=== PATIENT | male | born 1930 | race Caucasian/White ===

== ENCOUNTER 2016-02-23 14:16 | Inpatient (IN) | payer MEDICARE, MEDICAID ==
[~2016-02-23] VITALS: Ht 182.9 cm; Wt 81.6 kg
[2016-02-23] MEDS ORDERED: Ketorolac 30mg Inj IV ONE (14:45)
--- NOTE | 2016-02-23 14:53 | Emergency Room Report ---
History of Present Illness General Chief Complaint: Generalized Weakness Source: Patient Present Illness HPI Patient presents for general weakness patient apparently had a near syncopal episode Patient himself is a very poor historian Reports that he was having a headache [place] generally weak Patient is also able to come that he was recently in the hospital Patient has a cough History of present illness is limited There was a report by paramedics of the patient's orthostatic symptoms Allergies: Coded Allergies: No Known Allergies (Unverified , 02/23/16) Patient History Limited by: medical condition Past Medical History: see triage record Pertinent Family History: unable to obtain Reviewed Nursing Documentation: PMH: Agreed, PSxH: Agreed Nursing Documentation-PMH Past Medical History: No History, Except For Hx Hypertension: Yes Hx Diabetes: Yes Review of Systems All Other Systems: limited - Other than the ones mentioned in the history of present illness all others are reviewed however they do stay limited due to the patient's mental status Physical Exam Vital Signs Date Time Temp Pulse Resp B/P Pulse Ox O2 Delivery O2 Flow Rate FiO2 02/23/16 14:17 98.2 78 16 122/60 99 Room Air Sp02 EP Interpretation: reviewed, normal General Appearance: no apparent distress Head: normocephalic, atraumatic Eyes: bilateral eye EOMI, bilateral eye PERRL ENT: hearing grossly normal, normal pharynx, TMs + canals normal, uvula midline Neck: full range of motion, supple, no meningismus, no bony tend Respiratory: no rhonchi, no respiratory distress, no retraction, no accessory muscle use, crackles - In both lower lobes Cardiovascular #1: normal peripheral pulses, regular rate, rhythm, no edema, no gallop, no JVD, no murmur Gastrointestinal: normal bowel sounds, non tender, soft, no mass, no organomegaly, non-distended, no guarding, no hernia, no pulsatile mass, no rebound Genitourinary: no CVA tenderness Musculoskeletal: other - Patient is generally weak however able to move extremities without focal deficit Neurologic: oriented x3, responsive, sensory intact Psychiatric: mood/affect normal Skin: normal color, no rash, warm/dry, palpation normal Lymphatic: normal inspection, no adenopathy Medical Decision Making Diagnostic Impression: Primary Impression: Orthostatic dizziness Additional Impressions: Orthostatic headache Orthostatic hypotension Anemia Renal insufficiency ER Course Patient is a fairly complex patient with multiple differential to consideration including but not limited to cardiac cardiopulmonary and vascular emergencies Patient shows evidence of renal insufficiency Hemoglobin count is also low at 10 consideration for GI bleed is also made Patient remained otherwise stable hemodynamically at this time Orthostatics however were positive and the patient is admitted for further inpatient care Labs Test 02/23/16 14:45 02/23/16 15:36 White Blood Count 6.2 K/UL (4.8-10.8) Red Blood Count 3.23 M/UL (4.70-6.10) Hemoglobin 10.0 G/DL (14.2-18.0) Hematocrit 28.7 % (42.0-52.0) Mean Corpuscular Volume 89 FL (80-99) Mean Corpuscular Hemoglobin 30.9 PG (27.0-31.0) Mean Corpuscular Hemoglobin Concent 34.7 G/DL (32.0-36.0) Red Cell Distribution Width 12.1 % (11.6-14.8) Platelet Count 121 K/UL (150-450) Mean Platelet Volume 7.2 FL (6.5-10.1) Neutrophils (%) (Auto) 75.5 % (45.0-75.0) Lymphocytes (%) (Auto) 10.2 % (20.0-45.0) Monocytes (%) (Auto) 10.7 % (1.0-10.0) Eosinophils (%) (Auto) 2.7 % (0.0-3.0) Basophils (%) (Auto) 0.9 % (0.0-2.0) Prothrombin Time 10.7 SEC (9.30-11.50) Prothromb Time International Ratio 1.1 (0.9-1.1) Activated Partial Thromboplast Time 31 SEC (23-33) Sodium Level 132 mEQ/L (135-145) Potassium Level 3.7 mEQ/L (3.4-4.9) Chloride Level 91 mEQ/L (98-107) Carbon Dioxide Level 25 mEQ/L (20-30) Anion Gap 16 (5-15) Blood Urea Nitrogen 47 mg/dL (7-23) Creatinine 1.5 mg/dL (0.7-1.2) Estimat Glomerular Filtration Rate mL/min (>60) Glucose Level 139 mg/dL (74-106) Lactic Acid Level 1.50 mmol/L (0.66-2.22) Calcium Level 8.6 mg/dL (8.6-10.2) Total Bilirubin 0.3 mg/dL (0.0-1.2) Aspartate Amino Transf (AST/SGOT) 117 U/L (5-40) Alanine Aminotransferase (ALT/SGPT) 145 U/L (3-41) Alkaline Phosphatase 161 U/L (40-129) Total Creatine Kinase 69 U/L (38-174) Creatine Kinase MB 3.4 ng/mL (< 6.7) Creatine Kinase MB Relative Index 4.9 Troponin I < 0.30 ng/mL (<=0.30) Pro-B-Type Natriuretic Peptide 923 pg/mL (0-450) Total Protein 6.3 g/dL (6.6-8.7) Albumin 3.0 g/dL (3.5-5.2) Globulin 3.3 g/dL Albumin/Globulin Ratio 0.9 (1.0-2.7) Lipase 41 U/L (< 60) Urine Color Pale yellow Urine Appearance Clear Urine pH 5 (4.5-8.0) Urine Specific [place] 1.010 (1.005-1.035) Urine Protein Negative (NEGATIVE) Urine Glucose (UA) Negative (NEGATIVE) Urine Ketones Negative (NEGATIVE) Urine Occult Blood 1+ (NEGATIVE) Urine Nitrite Negative (NEGATIVE) Urine Bilirubin Negative (NEGATIVE) Urine Urobilinogen Normal MG/DL (0.0-1.0) Urine Leukocyte Esterase 1+ (NEGATIVE) Urine RBC 0-2 /HPF (0 - 0) Urine WBC 0-2 /HPF (0 - 0) Urine Squamous Epithelial Cells Occasional /LPF Urine Bacteria Occasional /HPF (NONE) EKG Diagnostic Results Rate: normal Rhythm: NSR ST Segments: other - Nonspecific ST and T-wave changes Rhythm Strip Diag. Results EP Interpretation: yes Rate: 77 Rhythm: NSR, no PVC's, no ectopy Chest X-Ray Diagnostic Results EP Interpretation: Yes Findings: no consolidation, no effusion, no pneumothorax Number of Views: 1 CT/MRI/US Diagnostic Results CT/MRI/US Diagnostic Results : Impression CT head no acute disease Last Vital Signs Date Time Temp Pulse Resp B/P Pulse Ox O2 Delivery O2 Flow Rate FiO2 02/23/16 14:17 98.2 78 16 122/60 99 Room Air Status: improved Disposition: ADMITTED INPATIENT Condition: Serious PAKO RAMIRES D.O. Feb 23, 2016 14:53
[2016-02-23 15:08] LABS: BASOPHILS % (AUTO) 0.9 % (0.0-2.0); EOSINOPHILS % (AUTO) 2.7 % (0.0-3.0); LYMPHOCYTES % (AUTO) 10.2 % (20.0-45.0); MEAN CORPUSCULAR HEMOGLOBIN 30.9 PG (27.0-31.0); MEAN CORPUSCULAR HGB CONC 34.7 G/DL (32.0-36.0); MEAN CORPUSCULAR VOLUME 89 FL (80-99); MEAN PLATELET VOLUME 7.2 FL (6.5-10.1); MONOCYTES % (AUTO) 10.7 % (1.0-10.0); NEUTROPHILS % (AUTO) 75.5 % (45.0-75.0); PLATELET COUNT 121 K/UL (150-450); RED BLOOD COUNT 3.23 M/UL (4.70-6.10); RED CELL DISTRIBUTION WIDTH 12.1 % (11.6-14.8); WHITE BLOOD COUNT 6.2 K/UL (4.8-10.8)
[2016-02-23 15:12] LABS: INR 1.1 (0.9-1.1); PROTHROMBIN TIME 10.7 SEC (9.30-11.50)
[2016-02-23 15:15] LABS: ALANINE AMINOTRANSFERASE 145 U/L (3-41); ALBUMIN/GLOBULIN RATIO 0.9 (1.0-2.7); ASPARTATE AMINO TRANSFERASE 117 U/L (5-40); CALCIUM 8.6 mg/dL (8.6-10.2); CHLORIDE 91 mEQ/L (98-107); CREATININE 1.5 mg/dL (0.7-1.2); HEMOLYSIS 0; LIPASE 41 U/L (< 60); POTASSIUM 3.7 mEQ/L (3.4-4.9); SODIUM 132 mEQ/L (135-145); TOTAL PROTEIN 6.3 g/dL (6.6-8.7)
[2016-02-23 15:16] LABS: TROPONIN I < 0.30 ng/mL (<=0.30)
[2016-02-23 15:17] VITALS: BP 122/60
[2016-02-23 15:26] LABS: CKMB 3.4 ng/mL (< 6.7)
[2016-02-23 15:30] VITALS: BP 123/60
[2016-02-23 15:36] LABS: ANION GAP 16 (5-15); CARBON DIOXIDE 25 mEQ/L (20-30)
[2016-02-23] MEDS ORDERED: CAPTOPRIL25 M1 PO (15:54)
[2016-02-23] MEDS ORDERED: GLIMEPIRIDE1 MG ORAL (15:54)
[2016-02-23] MEDS ORDERED: CLONIDINE HCL0.1 MG PO (15:54)
[2016-02-23] MEDS ORDERED: BYSTOLIC2.5 MG ORAL (15:54)
[2016-02-23 16:04] LABS: KETONES,URINE NEGATIVE (NEGATIVE); LEUKOCYTE ESTERASE ,URINE 1+ (NEGATIVE); NITRITE,URINE NEGATIVE (NEGATIVE); PH,URINE 5 (4.5-8.0); PROTEIN,URINE NEGATIVE (NEGATIVE); UROBILINOGEN,URINE NORMAL MG/DL (0.0-1.0)
[2016-02-23 16:05] LABS: APPEARANCE,URINE CLEAR
--- NOTE | 2016-02-23 16:17 | History & Physical ---
History and Physical History & Physicial HP dictated # [id number] ANNA MARIE GREEN Feb 23, 2016 16:17
[2016-02-23 16:22] LABS: BACTERIA,URINE OCCASIONAL /HPF; RBC,URINE 0-2 /HPF (0 - 0); SQUAMOUS EPITHELIAL CELL,UR OCCASIONAL /LPF (NONE/OCC); WBC,URINE 0-2 /HPF (0 - 0)
[2016-02-23] MEDS ORDERED: Zolpidem 5mg tab ORAL PRN (16:30)
[2016-02-23] MEDS ORDERED: Milk of Magnesia 30ml Ud ORAL PRN (16:30)
[2016-02-23 16:51] VITALS: BP 130/69
[2016-02-23] MEDS: cefTRIAXone 1 GM in D5W 50 ML IV SCH (17:55)
[2016-02-23 20:00] VITALS: BP 132/71
[2016-02-23] MEDS: Heparin 5000 units/ml inj SUBQ SCH (21:00)
[2016-02-23] MEDS: NovoLOG Insulin Flexpen SUBQ SCH (21:00)
[2016-02-23] MEDS ORDERED: Glimepiride 1mg tab ORAL SCH (21:30)
[2016-02-24] VITALS (7 sets, daily range): BP systolic 113–148; BP diastolic 49–76
--- NOTE | 2016-02-24 03:08 | History and Physical Report ---
DATE OF ADMISSION: 02/23/2016 CHIEF COMPLAINT: Cough and sputum production. HISTORY OF PRESENT ILLNESS: This is an 85-year-old [place] male, who was recently discharged from [facility]. He was admitted on 02/08/2016 for neck pain. The patient now comes in with few days history of severe cough and sputum production. The patient has been diagnosed with pneumonia and is being admitted. PAST MEDICAL HISTORY: Includes hypertension, hyperlipidemia, coronary artery disease, history of non-ST elevation MD, cardiac arrhythmia, anemia, thrombocytopenia, history of chronic kidney disease, pulmonary aspergillosis, chronic sinusitis, and diabetes type 2. MEDICATIONS: Reviewed in the EMR ALLERGIES: Reported to iodine. SOCIAL HISTORY: The patient drinks socially. No history of smoking. He is . His lives in [facility]. 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 REVIEW OF SYSTEMS: Noncontributory. PHYSICAL EXAMINATION: GENERAL: The patient is an elderly male, in no acute distress. VITAL SIGNS: Blood pressure is 122/60, pulse 75, temperature 98.6 degrees, and respiratory rate is 18. HEENT: Somewhat pale conjunctivae. Anicteric sclerae. NECK: Supple. LUNGS: Diffuse rhonchi bilaterally. HEART: S1 and S2 without murmurs or rubs. ABDOMEN: Soft and nontender. EXTREMITIES: No cyanosis or edema. LABORATORY FINDINGS: The CBC shows a WBC of 6.2, hematocrit 28.7, hemoglobin 10, and platelets 121,000 Chemistry panel shows serum sodium 133, potassium 3.7, chloride 91, CO2 25, BUN 47, creatinine 1.5, and blood sugar is 139. AST 117 and ALT 145. Albumin is 3. UA was negative. ASSESSMENT: This is an 85-year-old male, who was admitted with diagnosis of pneumonia. He has significant anemia. He has also renal failure, but he has history of chronic kidney disease. It is unclear if this is based on serum creatinine. He has also elevated AST and ALT. PLAN: The patient will be started on IV antibiotics, bronchodilators, and IV fluids. Pulmonary as well as ID consultation will be obtained. The patient's medication will be adjusted . Christopher Rios M.D. DR: Sonya JOB#: [id number] CC: KALYAN
[2016-02-24] MEDS: NovoLOG Insulin Flexpen SUBQ SCH ×2 (06:30→11:30)
[2016-02-24 07:41] LABS: BASOPHILS % (AUTO) 0.8 % (0.0-2.0); EOSINOPHILS % (AUTO) 3.6 % (0.0-3.0); LYMPHOCYTES % (AUTO) 18.9 % (20.0-45.0); MEAN CORPUSCULAR HEMOGLOBIN 30.9 PG (27.0-31.0); MEAN CORPUSCULAR HGB CONC 34.5 G/DL (32.0-36.0); MEAN CORPUSCULAR VOLUME 89 FL (80-99); MEAN PLATELET VOLUME 6.6 FL (6.5-10.1); MONOCYTES % (AUTO) 11.2 % (1.0-10.0); NEUTROPHILS % (AUTO) 65.4 % (45.0-75.0); PLATELET COUNT 118 K/UL (150-450); RED BLOOD COUNT 3.14 M/UL (4.70-6.10); RED CELL DISTRIBUTION WIDTH 12.1 % (11.6-14.8); WHITE BLOOD COUNT 4.7 K/UL (4.8-10.8)
[2016-02-24 08:27] LABS: BILIRUBIN,DIRECT 0.1 mg/dL (0.1-0.3); TOTAL PROTEIN 6.2 g/dL (6.6-8.7)
[2016-02-24] MEDS: Heparin 5000 units/ml inj SUBQ SCH (09:00)
[2016-02-24] MEDS: Bystolic 2.5mg Tab ORAL SCH (09:20)
[2016-02-24] MEDS ORDERED: LOSARTAN POTASS50 MG PO (09:41)
[2016-02-24] MEDS ORDERED: ATORVASTATIN CA40 MG PO (09:41)
[2016-02-24] MEDS ORDERED: SPIRONOLACTONE25 MG PO (09:41)
[2016-02-24] MEDS ORDERED: CAPTOPRIL50 MG PO (09:41)
[2016-02-24] MEDS ORDERED: CLONIDINE1 EACH TD (09:41)
[2016-02-24] MEDS ORDERED: FLONASE1 SPRAYS (09:41)
[2016-02-24] MEDS ORDERED: ULORIC40 MG PO (10:08)
[2016-02-24] MEDS ORDERED: MYSOLINE50 MG PO (10:08)
[2016-02-24] MEDS ORDERED: DEXILANT60 MG PO (10:08)
[2016-02-24] MEDS ORDERED: CLOPIDOGREL75 MG PO (10:08)
[2016-02-24] MEDS ORDERED: MECLIZINE HCL25 MG PO (10:08)
--- NOTE | 2016-02-24 10:11 | Diagnostic Imaging Report ---
Indications: Cephalgia Technique: Continuous helical CT imaging of the brain was performed with nonionic exposure control on a Siemens sensation [address] scanner. Axial and coronal images were reconstructed at 5 mm slice thickness and interval. CTDI volume(s): 70 mGy Total DLP: 1368 mGy-cm Findings: Comparison: None Mild low attenuation is present in the bilateral periventricular white matter. Ventricles, cisterns, and sulci are diffusely prominent. No evidence of mass or hemorrhage, mass effect, midline shift, hydrocephalus, or increased intracranial pressure. There are apparent defects in the medial stein of both maxillary sinuses and absence of bilateral nasal turbinates as well as a defect in the nasal septum. Bone window images are otherwise unremarkable. Periosteal thickening is present in the visualized paranasal sinuses with sphenoid sinus air-fluid level. Bilateral mastoid air cells are clear.. IMPRESSION: No evidence of acute intracranial pathology Bilateral cerebral periventricular white matter low attenuation, nonspecific, likely chronic microvascular ischemic in nature. 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 Written preliminary report placed in PACS 02/23/[id number] scanner at [facility] is accredited by the [employer] and the scans are performed using protocols designed to limit radiation exposure to as low as reasonably achievable to attain images of sufficient resolution adequate for diagnostic evaluation.
--- NOTE | 2016-02-24 10:13 | Diagnostic Imaging Report ---
Indications: Chest pain Technique: Portable AP chest Findings: Comparison: None Heart size, pulmonary vasculature within normal limits. Interstitial markings mildly increased in both parahilar regions, right greater than left. No parenchymal consolidative opacities. No pleural abnormalities. Aortic arch calcified. IMPRESSION: Mild bilateral perihilar interstitial prominence, nonspecific, acuity indeterminate. Early pulmonary edema not excludable. Aortosclerosis Otherwise negative
[2016-02-24] MEDS ORDERED: Sorbitol Solution UD 30ml ORAL PRN (11:30)
--- NOTE | 2016-02-24 11:36 | General Progress Note ---
Assessment/Plan Problem List: (1) Pneumonia ICD Codes: J18.9 - Pneumonia, unspecified organism SNOMED: 302262117 (2) Anemia SNOMED: 094742383, 900045161 (3) Respiratory failure with hypoxia ICD Codes: J96.91 - Respiratory failure, unspecified with hypoxia SNOMED: 04498558120810966 (4) CAD (coronary artery disease) ICD Codes: I25.10 - Atherosclerotic heart disease of [place] coronary artery without angina pectoris SNOMED: 22030226 (5) HTN (hypertension) ICD Codes: I10 - Essential (primary) hypertension SNOMED: 51391773 Assessment/Plan Abxs Laxatives Bronchodilators follow labs Discussed with fresco artist Subjective Allergies: Coded Allergies: No Known Allergies (Unverified , 02/23/16) Subjective In NAD Objective Last 24 Hour Vital Signs Date Time Temp Pulse Resp B/P Pulse Ox O2 Delivery O2 Flow Rate FiO2 02/24/16 08:00 97.1 68 20 140/75 100 Room Air 02/24/16 08:00 87 02/24/16 04:15 98.3 75 21 126/75 94 Room Air 02/24/16 04:00 66 02/24/16 00:23 97.2 86 20 128/69 99 Room Air 02/24/16 00:00 84 02/23/16 20:00 81 02/23/16 20:00 97.8 82 18 132/71 97 Room Air 02/23/16 16:51 97.3 75 18 130/69 98 Room Air 02/23/16 16:42 98.6 71 19 130/62 99 Room Air 02/23/16 16:00 75 02/23/16 15:37 98.6 02/23/16 15:30 98.6 75 18 123/60 99 Room Air 02/23/16 15:17 98.2 16 122/60 99 Room Air 02/23/16 14:17 98.2 78 16 122/60 99 Room Air Intake and Output 02/23/16 02/24/16 19:00 07:00 Intake Total 1100 ml 1160 ml Balance 1100 ml 1160 ml Intake Oral 360 ml IV Total 100 ml 800 ml Other 1000 ml # Voids 1 4 Laboratory Tests 02/23/16 14:45: White Blood Count 6.2, Red Blood Count 3.23L, Hemoglobin 10.0L, Hematocrit 28.7L , Mean Corpuscular Volume 89, Mean Corpuscular Hemoglobin 30.9, Mean Corpuscular Hemoglobin Concent 34.7, Red Cell Distribution Width 12.1, Platelet Count 121L, Mean Platelet Volume 7.2, Neutrophils (%) (Auto) 75.5H, Lymphocytes (%) (Auto) 10.2L, Monocytes (%) (Auto) 10.7H, Eosinophils (%) (Auto) 2.7, Basophils (%) (Auto) 0.9, Prothrombin Time 10.7, Prothromb Time International Ratio 1.1, Activated Partial Thromboplast Time 31, Sodium Level 132L, Potassium Level 3.7, Chloride Level 91L, Carbon Dioxide Level 25, Anion Gap 16H, Blood Urea Nitrogen 47H, Creatinine 1.5H, Estimat Glomerular Filtration Rate , Glucose Level 139H, Lactic Acid Level 1.50, Calcium Level 8.6, Total Bilirubin 0.3, Aspartate Amino Transf (AST/SGOT) 117H, Alanine Aminotransferase (ALT/SGPT ) 145H, Alkaline Phosphatase 161H, Total Creatine Kinase 69, Creatine Kinase MB 3.4, Creatine Kinase MB Relative Index 4.9, Troponin I < 0.30, Pro-B-Type Natriuretic Peptide 923H, Total Protein 6.3L, Albumin 3.0L, Globulin 3.3, Albumin/Globulin Ratio 0.9L, Lipase 41 02/23/16 15:36: Urine Color Pale yellow, Urine Appearance Clear, Urine pH 5, Urine Specific [place] 1.010, Urine Protein Negative, Urine Glucose (UA) Negative, Urine Ketones Negative, Urine Occult Blood 1+H, Urine Nitrite Negative, Urine Bilirubin Negative, Urine Urobilinogen Normal, Urine Leukocyte Esterase 1+H, Urine RBC 0-2H, Urine WBC 0-2, Urine Squamous Epithelial Cells Occasional, Urine Bacteria Occasional 02/24/16 06:35: White Blood Count 4.7L, Red Blood Count 3.14L, Hemoglobin 9.7L, Hematocrit 28.1L , Mean Corpuscular Volume 89, Mean Corpuscular Hemoglobin 30.9, Mean Corpuscular Hemoglobin Concent 34.5, Red Cell Distribution Width 12.1, Platelet Count 118L, Mean Platelet Volume 6.6, Neutrophils (%) (Auto) 65.4, Lymphocytes ( %) (Auto) 18.9L, Monocytes (%) (Auto) 11.2H, Eosinophils (%) (Auto) 3.6H, Basophils (%) (Auto) 0.8, Total Bilirubin 0.2, Aspartate Amino Transf (AST/SGOT ) 84H, Alanine Aminotransferase (ALT/SGPT) 120H, Alkaline Phosphatase 172H, Total Protein 6.2L, Albumin 3.0L, Direct Bilirubin 0.1 Height (Feet): 6 Weight (Pounds): 180 Cardiovascular: normal rate Respiratory/Chest: rhonchi - bilaterally Edema: no edema noted Generalized ANNA MARIE GREEN Feb 24, 2016 11:36
[2016-02-24 12:35] LABS: CHOLESTEROL/HDL RATIO 5.3 (3.3-4.4)
[2016-02-24] MEDS: DuoNeb 0.5-3(2.5)mg/3ml neb HHN SCH ×3 (12:43→21:58)
[2016-02-24] MEDS: Aspirin Baby 81mg NG SCH (13:03)
[2016-02-24] MEDS ORDERED: DuoNeb 0.5-3(2.5)mg/3ml neb HHN SCH (15:00)
[2016-02-24] MEDS: cefTRIAXone 1 GM in D5W 50 ML IV SCH (18:09)
--- NOTE | 2016-02-24 19:37 | Cardiology Report ---
APPROVED REPORT EKG Measurement Heart [id number] Sinus rhythm with 1st degree AV block Inferior infarct, age undetermined Abnormal ECG
--- NOTE | 2016-02-24 20:45 | History & Physical ---
History and Physical History & Physicial #[id number] cough sob orthopnea ?CHF hx of cad hx of pulmonary aspergillosis hypoxemia resovled SWATHI MACDONALD DO Feb 24, 2016 20:45
[2016-02-24] MEDS: Glimepiride 1mg tab ORAL SCH (21:30)
[2016-02-24] MEDS: Primidone 250mg tab ORAL SCH (21:30)
[2016-02-25] VITALS (7 sets, daily range): BP systolic 129–152; BP diastolic 67–79
--- NOTE | 2016-02-25 00:08 | Consultation ---
DATE OF CONSULTATION: 02/24/2016 PRIMARY ATTENDING: Christopher Rios M.D. REASON FOR CONSULTATION: Pneumonia. HISTORY OF PRESENT ILLNESS: The patient is a 85-year-old white male admitted yesterday from home. The patient feels generalized weakness, for three to four days he cannot go out of house walking, had headache, coughing with sputum production, did not feel good. PAST MEDICAL HISTORY: Significant for hypertension, dyslipidemia, chronic kidney disease, anemia, thrombocytopenia, chronic anxiety, diabetes type 2, pulmonary aspergillosis. MEDICATIONS: Nebivolol, Amaryl, heparin, insulin, Zofran, Zithromax, sodium chloride, ceftriaxone, Tylenol, Ambien. ALLERGIES: No known drug allergies. SOCIAL HISTORY: Resident from [place], , is in a nursing facility. No children. No history of alcohol abuse. No history of smoking. REVIEW OF SYSTEMS: No fever or chills. Some sore throat. History of sinus problem in the past. Coughing that is mostly nonproductive. No nausea. No vomiting. no problem in passing urine. Vaccination, the patient got flu shot and pneumonia vaccine in November of last year. PHYSICAL EXAMINATION: GENERAL APPEARANCE: No acute distress, awake, alert, and oriented. VITAL SIGNS: Temperature 98.3, pulse 75, blood pressure 126/75, and the patient was afebrile. HEENT: Head And Neck: [place] conjunctivae. Mild erythema in throat but no exudate. HEART: Regular. LUNGS: Few rhonchi. ABDOMEN: Soft and nontender. EXTREMITIES: No edema. NEUROLOGIC: She is awake, alert, and oriented x3. LABORATORY AND DIAGNOSTIC DATA: Sodium 132, potassium 3.7, chloride 91, bicarbonate 25, BUN 47, creatinine 1.5, glucose 139. LFTs are elevated. AST 84, ALT 120, alkaline phosphatase 172. Albumin 3. BNP 923. IMPRESSION: 1. Bronchitis, rule out early pneumonia. The patient has some respiratory symptoms and generalized weakness, elevated liver function tests, chronic kidney disease, anemia, and thrombocytopenia. 2. Diabetes mellitus type 2. RECOMMENDATIONS: 1. We will continue with ceftriaxone and Zithromax. 2. We will repeat chest x-ray in one or two days. 3. We will follow up CT scan of the head 4. We will followup LFTs. At the end of my exam, I thank, Dr. Christopher Rios M.D., for involving me in the care of this patient. Polo Rios M.D. DR: Evangelina JOB#: [id number] CC: KALYAN
--- NOTE | 2016-02-25 03:47 | Consultation ---
DATE OF CONSULTATION: 02/23/2015 CONSULTING PHYSICIAN: Nancy Brower D.O. ATTENDING PHYSICIAN: Christopher Rios M.D. REASON FOR CONSULTATION: Shortness of breath. HISTORY OF PRESENT ILLNESS: The patient was admitted yesterday for cough and sputum production he has had for approximately 10 days. He has had significant amount of orthopnea with cough that has been nonproductive. He denies any chest pain, nausea, vomiting, or diarrhea. He is unaware if he has had any fever. He has had pneumonia in the past. He denies any signs of dysphagia, but he has had decreased p.o. intake due to his cough and shortness of breath. PAST HISTORY: Hypertension, hyperlipidemia, coronary disease, history of a non-ST SD, thrombocytopenia, renal insufficiency, pulmonary aspergillosis, sinusitis, and type 2 diabetes. MEDICATIONS: His present and prehospital medications reviewed and reconciled. ALLERGIES: He is allergic to iodine. SOCIAL HISTORY: Negative for tobacco, alcohol, or drugs. He is . He lives at [place]. 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 REVIEW OF SYSTEMS: Noncontributory. PHYSICAL EXAMINATION: GENERAL: At the time of my exam, he is awake and alert. He is in no distress. VITAL SIGNS: He is afebrile. His blood pressure is 148/76, pulse is 87, and he is 100% on room air. HEENT: His oropharynx is moist. His nasal mucosa is moist. NECK: Supple. LUNGS: Bilateral rhonchi. No wheezes are present. Scant crackles noted at the bases. HEART: Regular rhythm without murmur. ABDOMEN: Soft, obese, and nontender. Positive bowel sounds. EXTREMITIES: No edema. NEUROLOGIC: He has no focal neurologic deficits. Cranial nerves are intact. No skin rashes, wounds, or lesions are present. LABORATORY AND DIAGNOSTIC DATA: His chest x-ray shows mild CHF. His white count 4.7, hemoglobin 9.7, and platelets are 118,000. His sodium is 132, potassium is 3.7, chloride 91, bicarbonate 25, BUN 47, creatinine 1.5, and glucose is 139. His LFTs are slightly elevated. AST of 84, ALT of 120, and alkaline phosphatase of 172. Cholesterol levels are noted. Troponin is negative. Echo report is pending. No new cultures are available. ASSESSMENT: Suspected decompensated heart failure, possible pneumonia, orthopnea, diabetes, respiratory insufficiency, and atelectasis. PLAN: For the patient, we will continue diuresis. Recommend diuresis and a 2D echo if not been ordered. We will check on more troponin and DVT prophylaxis. He is on IV antibiotics. We will follow blood urine and sputum cultures. O2 to maintain saturations greater than 92% as needed and p.r.n. nebulizers. No wheezing is present. Steroids are not indicated. We will repeat a chest x-ray in one to two days, physical therapy, and bedside swallow if concerns for aspiration are present. Thank you very much for the consultation. Nancy Brower D.O. DR: STAS JOB#: [id number] CC:
[2016-02-25] MEDS: DuoNeb 0.5-3(2.5)mg/3ml neb HHN SCH ×3 (07:08→23:00)
[2016-02-25 08:30] LABS: ANION GAP 14 (5-15); CALCIUM 8.8 mg/dL (8.6-10.2); CARBON DIOXIDE 28 mEQ/L (20-30); CHLORIDE 98 mEQ/L (98-107); HEMOLYSIS 11; POTASSIUM 3.3 mEQ/L (3.4-4.9); SODIUM 140 mEQ/L (135-145)
[2016-02-25 08:40] LABS: HEMOLYSIS 16; IRON 34 ug/dL (59-158); TOTAL IRON BINDING CAPACITY 136 ug/dL (250-400)
[2016-02-25] MEDS: Aspirin Baby 81mg NG SCH (09:00)
[2016-02-25] MEDS: Bystolic 2.5mg Tab ORAL SCH (09:27)
--- NOTE | 2016-02-25 09:41 | Infectious Diseases Prog Note ---
Assessment/Plan Assessment/Plan A: Sinusitis Bronchitis ? early pneumonia Elevated transaminase ARF, CKD P: continue Zithromax & Rocephin repeat CXR Subjective ROS Limited/Unobtainable: No Constitutional: Reports: no symptoms HEENT: Reports: congestion Respiratory: Reports: productive cough Gastrointestinal/Abdominal: Reports: no symptoms Genitourinary: Reports: no symptoms Allergies: Coded Allergies: No Known Allergies (Unverified , 02/23/16) Objective Vital Signs Last 24 Hour Vital Signs Date Time Temp Pulse Resp B/P Pulse Ox O2 Delivery O2 Flow Rate FiO2 02/25/16 08:12 98.1 68 20 152/67 98 Room Air 02/25/16 04:16 98.4 75 20 148/79 98 Room Air 02/25/16 04:00 75 02/25/16 00:26 98.6 87 21 146/74 95 Room Air 02/25/16 00:00 81 02/24/16 22:11 79 16 99 Room Air 21 02/24/16 21:59 21 02/24/16 21:58 87 16 97 Room Air 21 02/24/16 20:00 98.2 72 18 129/69 97 Room Air 02/24/16 20:00 100 02/24/16 19:00 82 16 Room Air 02/24/16 16:00 98.1 87 20 148/76 100 Room Air 02/24/16 16:00 90 02/24/16 15:30 68 16 96 Room Air 21 02/24/16 14:30 65 16 98 Room Air 21 02/24/16 12:37 63 16 98 Room Air 21 02/24/16 12:36 21 02/24/16 12:35 62 16 96 Room Air 21 02/24/16 12:34 62 16 Room Air 02/24/16 12:01 97.7 72 20 129/66 98 Room Air 02/24/16 12:00 86 Height (Feet): 6 Height (Inches): 0.00 Weight (Pounds): 180 General Appearance: no acute distress HEENT: mucous membranes moist Respiratory/Chest: lungs clear Cardiovascular: normal rate Abdomen: soft, non tender Extremities: no edema Neurologic/Psychiatric: alert, oriented x 3, responsive Microbiology Date/Time Source Procedure Growth Status 02/23/16 14:45 Blood Blood Culture - Preliminary NO GROWTH AFTER 24 HOURS Resulted 02/23/16 14:45 Blood Blood Culture - Preliminary NO GROWTH AFTER 24 HOURS Resulted 02/23/16 16:00 Nasal Nares MRSA Culture - Final NO METHICILLIN RESISTANT STAPH AUREUS... Complete 02/23/16 16:00 Rectum VRE Culture - Final NO VANCOMYCIN RESISTANT ENTEROCOCCUS ... Complete Laboratory Tests Test 02/25/16 07:40 Sodium Level 140 mEQ/L (135-145) Potassium Level 3.3 mEQ/L (3.4-4.9) L Chloride Level 98 mEQ/L (98-107) Carbon Dioxide Level 28 mEQ/L (20-30) Anion Gap 14 (5-15) Blood Urea Nitrogen 30 mg/dL (7-23) H Creatinine 1.0 mg/dL (0.7-1.2) Estimat Glomerular Filtration Rate mL/min (>60) Glucose Level 95 mg/dL (74-106) Calcium Level 8.8 mg/dL (8.6-10.2) Iron Level 34 ug/dL (59-158) L Total Iron Binding Capacity 136 ug/dL (250-400) L Percent Iron Saturation 25 % (15-50) Unsaturated Iron Binding 102 ug/dL (112-346) L Current Medications Medications (Trade) Dose Ordered Sig/Jyoti Route PRN Reason Start Time Stop Time Status Last Admin Dose Admin Acetaminophen (Tylenol) 650 mg Q4H PRN ORAL Mild Pain (Pain Scale 1-3) 02/23/16 16:30 03/24/16 16:29 Acetaminophen (Tylenol) 650 mg Q4H PRN ORAL fever 02/23/16 16:30 03/24/16 16:29 Albuterol/ Ipratropium (DuoNeb 0.5-3(2.5)mg/3ml) 3 ml Q8HRT HHN 02/24/16 13:00 02/29/16 12:59 02/24/16 21:58 Aspirin (ASA) 81 mg DAILY NG 02/24/16 12:00 03/25/16 11:59 02/24/16 13:03 Atorvastatin Calcium (Lipitor) 40 mg QHS ORAL 02/24/16 21:00 03/25/16 20:59 02/24/16 21:30 Azithromycin 500 mg/Dextrose 250 ml @ 250 mls/hr Q24H IV 02/23/16 19:00 03/01/16 18:59 02/24/16 19:35 Ceftriaxone Sodium/Dextrose (Rocephin/D5W 50ml) 50 ml @ 100 mls/hr Q24H IV 02/23/16 18:00 03/01/16 17:59 02/24/16 18:09 Clopidogrel Bisulfate (Plavix) 75 mg DAILY ORAL 02/24/16 12:00 03/25/16 11:59 02/24/16 13:03 Dextrose (Dextrose 50%) STAT PRN IV Hypoglycemia 02/23/16 16:30 03/24/16 16:29 Glimepiride (Amaryl) 1 mg QHS ORAL 02/24/16 21:00 03/25/16 20:59 02/24/16 21:30 Magnesium Hydroxide (Mom) 30 ml HSPRN PRN ORAL Constipation 02/23/16 16:30 03/24/16 16:29 02/24/16 12:51 Nebivolol 2.5 mg 2.5 mg DAILY ORAL 02/24/16 09:00 03/25/16 08:59 02/24/16 09:20 Ondansetron HCl (Zofran) 4 mg Q4HR PRN IVP Nausea & Vomiting 02/23/16 20:45 03/24/16 20:44 02/23/16 21:03 Primidone (Mysoline) 100 mg Q24H ORAL 02/24/16 14:00 03/25/16 13:59 02/24/16 13:39 Primidone (Mysoline) 150 mg DAILY ORAL 02/25/16 09:00 03/26/16 08:59 Primidone (Mysoline) 250 mg QHS ORAL 02/24/16 21:00 03/25/16 20:59 02/24/16 21:30 Sodium Chloride 1,000 ml @ 50 mls/hr Q20H IVLG 02/23/16 18:00 03/24/16 17:59 02/24/16 13:06 Sorbitol (Sorbitol) 30 ml TIDPRN PRN ORAL Constipation 02/24/16 11:30 03/25/16 11:29 Zolpidem Tartrate (Ambien) 5 mg HSPRN PRN ORAL Insomnia 02/23/16 16:30 03/24/16 16:29 JORDANA GREEN Feb 25, 2016 09:41
--- NOTE | 2016-02-25 12:22 | General Progress Note ---
Assessment/Plan Problem List: (1) Pneumonia ICD Codes: J18.9 - Pneumonia, unspecified organism SNOMED: 090155001 (2) Anemia ICD Codes: D64.9 - Anemia, unspecified SNOMED: 150013049, 658053394 (3) Respiratory failure with hypoxia ICD Codes: J96.91 - Respiratory failure, unspecified with hypoxia SNOMED: 65375254247498519 (4) CAD (coronary artery disease) ICD Codes: I25.10 - Atherosclerotic heart disease of [place] coronary artery without angina pectoris SNOMED: 16429439 (5) HTN (hypertension) ICD Codes: I10 - Essential (primary) hypertension SNOMED: 15645064 (6) Hypokalemia ICD Codes: E87.6 - Hypokalemia SNOMED: 92367612 (7) ARF (acute renal failure) ICD Codes: N17.9 - Acute kidney failure, unspecified SNOMED: 50821547 Status Narrative ARF better not iron deficient Assessment/Plan Abxs Laxatives Bronchodilators follow labs Discussed with RN julisa WARREN Subjective Allergies: Coded Allergies: No Known Allergies (Unverified , 02/23/16) Subjective In NAD Objective Last 24 Hour Vital Signs Date Time Temp Pulse Resp B/P Pulse Ox O2 Delivery O2 Flow Rate FiO2 02/25/16 11:33 98.1 84 20 131/68 99 Room Air 02/25/16 08:12 98.1 68 20 152/67 98 Room Air 02/25/16 07:15 87 16 99 Room Air 21 02/25/16 07:08 85 16 97 Room Air 21 02/25/16 07:08 21 02/25/16 07:08 85 16 Room Air 02/25/16 04:16 98.4 75 20 148/79 98 Room Air 02/25/16 04:00 75 02/25/16 00:26 98.6 87 21 146/74 95 Room Air 02/25/16 00:00 81 02/24/16 22:11 79 16 99 Room Air 21 02/24/16 21:59 21 02/24/16 21:58 87 16 97 Room Air 21 02/24/16 20:00 98.2 72 18 129/69 97 Room Air 02/24/16 20:00 100 02/24/16 19:00 82 16 Room Air 02/24/16 16:00 98.1 87 20 148/76 100 Room Air 02/24/16 16:00 90 02/24/16 15:30 68 16 96 Room Air 21 02/24/16 14:30 65 16 98 Room Air 21 02/24/16 12:37 63 16 98 Room Air 21 02/24/16 12:36 21 02/24/16 12:35 62 16 96 Room Air 21 02/24/16 12:34 62 16 Room Air Intake and Output 02/24/16 02/25/16 19:00 07:00 Intake Total 1000 ml 900 ml Balance 1000 ml 900 ml Intake Oral 400 ml IV Total 600 ml 900 ml # Voids 2 4 Laboratory Tests 02/25/16 07:40: Sodium Level 140, Potassium Level 3.3L, Chloride Level 98, Carbon Dioxide Level 28, Anion Gap 14, Blood Urea Nitrogen 30H, Creatinine 1.0, Estimat Glomerular Filtration Rate , Glucose Level 95, Calcium Level 8.8, Iron Level 34L, Total Iron Binding Capacity 136L, Percent Iron Saturation 25, Unsaturated Iron Binding 102L Height (Feet): 6 Height (Inches): 0.00 Weight (Pounds): 180 Cardiovascular: normal rate Respiratory/Chest: lungs clear Edema: no edema noted ANNA MARIE Turk Feb 25, 2016 12:22
[2016-02-25] MEDS: cefTRIAXone 1 GM in D5W 50 ML IV SCH (17:52)
--- NOTE | 2016-02-25 19:13 | Pulmonology Progress Note ---
Assessment/Plan Problems: (1) CAD (coronary artery disease) (2) HTN (hypertension) (3) Hypokalemia (4) ARF (acute renal failure) (5) Cough (6) Pneumonia Assessment/Plan -Optimize pulmonary hygiene/mobilize as tolerated -Abx per ID, F/U Cx's and respiratory panel -Mucinex and PRN Robitussin -RTC and PRN bronchodilators -Monitor volumes -F/U TTE -Hep SQ for DVT Px -Aspiration precautions Subjective Allergies: Coded Allergies: No Known Allergies (Unverified , 02/23/16) Subjective Feels better No cough, less SOB, no F/C Objective Last 24 Hour Vital Signs Date Time Temp Pulse Resp B/P Pulse Ox O2 Delivery O2 Flow Rate FiO2 02/25/16 16:00 98.4 84 20 129/77 97 Room Air 02/25/16 16:00 82 02/25/16 15:33 89 16 100 Room Air 21 02/25/16 15:25 21 02/25/16 15:25 83 16 96 Room Air 21 02/25/16 12:00 76 02/25/16 11:33 98.1 84 20 131/68 99 Room Air 02/25/16 08:12 98.1 68 20 152/67 98 Room Air 02/25/16 08:00 82 02/25/16 07:15 87 16 99 Room Air 21 02/25/16 07:08 85 16 97 Room Air 21 02/25/16 07:08 21 02/25/16 07:08 85 16 Room Air 02/25/16 04:16 98.4 75 20 148/79 98 Room Air 02/25/16 04:00 75 02/25/16 00:26 98.6 87 21 146/74 95 Room Air 02/25/16 00:00 81 02/24/16 22:11 79 16 99 Room Air 21 02/24/16 21:59 21 02/24/16 21:58 87 16 97 Room Air 02/24/16 20:00 98.2 72 18 129/69 97 Room Air 02/24/16 20:00 100 Intake and Output 02/24/16 02/25/16 19:00 07:00 Intake Total 1000 ml 900 ml Balance 1000 ml 900 ml Intake Oral 400 ml IV Total 600 ml 900 ml # Voids 2 4 General Appearance: WD/WN, no acute distress HEENT: normocephalic, atraumatic, mucous membranes moist Respiratory/Chest: chest wall non-tender, lungs clear, normal breath sounds, no respiratory distress, no accessory muscle use Cardiovascular: normal peripheral pulses, normal rate, regular rhythm Abdomen: normal bowel sounds, soft, non tender, no organomegaly, non distended Extremities: no cyanosis, no clubbing, no edema Microbiology Date/Time Source Procedure Growth Status 02/23/16 14:45 Blood Blood Culture - Preliminary NO GROWTH AFTER 24 HOURS Resulted 02/23/16 14:45 Blood Blood Culture - Preliminary NO GROWTH AFTER 24 HOURS Resulted 02/23/16 16:00 Nasal Nares MRSA Culture - Final NO METHICILLIN RESISTANT STAPH AUREUS... Complete 02/23/16 16:00 Rectum VRE Culture - Final NO VANCOMYCIN RESISTANT ENTEROCOCCUS ... Complete Laboratory Tests 02/25/16 07:40: Sodium Level 140, Potassium Level 3.3L, Chloride Level 98, Carbon Dioxide Level 28, Anion Gap 14, Blood Urea Nitrogen 30H, Creatinine 1.0, Estimat Glomerular Filtration Rate , Glucose Level 95, Calcium Level 8.8, Iron Level 34L, Total Iron Binding Capacity 136L, Percent Iron Saturation 25, Unsaturated Iron Binding 102L Current Medications Medications (Trade) Dose Ordered Sig/Jyoti Route PRN Reason Start Time Stop Time Status Last Admin Dose Admin Acetaminophen (Tylenol) 650 mg Q4H PRN ORAL Mild Pain (Pain Scale 1-3) 02/23/16 16:30 03/24/16 16:29 Acetaminophen (Tylenol) 650 mg Q4H PRN ORAL fever 02/23/16 16:30 03/24/16 16:29 Albuterol/ Ipratropium (DuoNeb 0.5-3(2.5)mg/3ml) 3 ml Q8HRT HHN 02/24/16 13:00 02/29/16 12:59 02/25/16 15:25 Aspirin (ASA) 81 mg DAILY NG 02/24/16 12:00 03/25/16 11:59 02/24/16 13:03 Atorvastatin Calcium (Lipitor) 40 mg QHS ORAL 02/24/16 21:00 03/25/16 20:59 02/24/16 21:30 Azithromycin 500 mg/Dextrose 250 ml @ 250 mls/hr Q24H IV 02/23/16 19:00 03/01/16 18:59 02/25/16 18:52 Ceftriaxone Sodium/Dextrose (Rocephin/D5W 50ml) 50 ml @ 100 mls/hr Q24H IV 02/23/16 18:00 03/01/16 17:59 02/25/16 17:52 Clopidogrel Bisulfate (Plavix) 75 mg DAILY ORAL 02/24/16 12:00 03/25/16 11:59 02/25/16 09:27 Dextrose (Dextrose 50%) STAT PRN IV Hypoglycemia 02/23/16 16:30 03/24/16 16:29 Glimepiride (Amaryl) 1 mg QHS ORAL 02/24/16 21:00 03/25/16 20:59 02/24/16 21:30 Magnesium Hydroxide (Mom) 30 ml HSPRN PRN ORAL Constipation 02/23/16 16:30 03/24/16 16:29 02/24/16 12:51 Nebivolol 2.5 mg 2.5 mg DAILY ORAL 02/24/16 09:00 03/25/16 08:59 02/25/16 09:27 Ondansetron HCl (Zofran) 4 mg Q4HR PRN IVP Nausea & Vomiting 02/23/16 20:45 03/24/16 20:44 02/23/16 21:03 Primidone (Mysoline) 100 mg Q24H ORAL 02/24/16 14:00 03/25/16 13:59 02/25/16 13:00 Primidone (Mysoline) 150 mg DAILY ORAL 02/25/16 09:00 03/26/16 08:59 02/25/16 09:27 Primidone (Mysoline) 250 mg QHS ORAL 02/24/16 21:00 03/25/16 20:59 02/24/16 21:30 Sodium Chloride 1,000 ml @ 50 mls/hr Q20H IVLG 02/23/16 18:00 03/24/16 17:59 02/25/16 09:38 Sorbitol (Sorbitol) 30 ml TIDPRN PRN ORAL Constipation 02/24/16 11:30 03/25/16 11:29 Zolpidem Tartrate (Ambien) 5 mg HSPRN PRN ORAL Insomnia 1/14/17 16:30 03/24/16 16:29 NIK BOONE M.D. Feb 25, 2016 19:13
[2016-02-25] MEDS ORDERED: guaiFENesin 100mg/5ml Liq ud ORAL PRN (19:15)
--- NOTE | 2016-02-25 20:19 | Cardiology Progress Note ---
Subjective Subjective [id number] Objective Last 24 Hour Vital Signs Date Time Temp Pulse Resp B/P Pulse Ox O2 Delivery O2 Flow Rate FiO2 02/25/16 16:00 98.4 84 20 129/77 97 Room Air 02/25/16 16:00 82 02/25/16 15:33 89 16 100 Room Air 21 02/25/16 15:25 21 02/25/16 15:25 83 16 96 Room Air 21 02/25/16 12:00 76 02/25/16 11:33 98.1 84 20 131/68 99 Room Air 02/25/16 08:12 98.1 68 20 152/67 98 Room Air 02/25/16 08:00 82 02/25/16 07:15 87 16 99 Room Air 21 02/25/16 07:08 85 16 97 Room Air 21 02/25/16 07:08 21 02/25/16 07:08 85 16 Room Air 02/25/16 04:16 98.4 75 20 148/79 98 Room Air 02/25/16 04:00 75 02/25/16 00:26 98.6 87 21 146/74 95 Room Air 02/25/16 00:00 81 02/24/16 22:11 79 16 99 Room Air 21 02/24/16 21:59 21 02/24/16 21:58 87 16 97 Room Air 21 Intake and Output 02/24/16 02/25/16 19:00 07:00 Intake Total 1000 ml 900 ml Balance 1000 ml 900 ml Intake Oral 400 ml IV Total 600 ml 900 ml # Voids 2 4 Laboratory Tests Test 02/25/16 07:40 Sodium Level 140 mEQ/L (135-145) Potassium Level 3.3 mEQ/L (3.4-4.9) L Chloride Level 98 mEQ/L (98-107) Carbon Dioxide Level 28 mEQ/L (20-30) Anion Gap 14 (5-15) Blood Urea Nitrogen 30 mg/dL (7-23) H Creatinine 1.0 mg/dL (0.7-1.2) Estimat Glomerular Filtration Rate mL/min (>60) Glucose Level 95 mg/dL (74-106) Calcium Level 8.8 mg/dL (8.6-10.2) Iron Level 34 ug/dL (59-158) L Total Iron Binding Capacity 136 ug/dL (250-400) L Percent Iron Saturation 25 % (15-50) Unsaturated Iron Binding 102 ug/dL (112-346) L Microbiology Date/Time Source Procedure Growth Status 02/23/16 14:45 Blood Blood Culture - Preliminary NO GROWTH AFTER 24 HOURS Resulted 02/23/16 14:45 Blood Blood Culture - Preliminary NO GROWTH AFTER 24 HOURS Resulted 02/23/16 16:00 Nasal Nares MRSA Culture - Final NO METHICILLIN RESISTANT STAPH AUREUS... Complete 02/23/16 16:00 Rectum VRE Culture - Final NO VANCOMYCIN RESISTANT ENTEROCOCCUS ... Complete MICHELLE SHAFFER Feb 25, 2016 20:19
[2016-02-25] MEDS ORDERED: Heparin 5000 units/ml inj SUBQ SCH (21:00)
[2016-02-25] MEDS ORDERED: guaiFENesin 600mg tab ORAL SCH (21:00)
[2016-02-25] MEDS: Primidone 250mg tab ORAL SCH (21:13)
[2016-02-25] MEDS: Glimepiride 1mg tab ORAL SCH (21:14)
--- NOTE | 2016-02-26 01:17 | Consultation ---
DATE OF CONSULTATION: 02/25/2016 CARDIOLOGY CONSULTATION CONSULTING PHYSICIAN: Allison Suazo M.D. ATTENDING PHYSICIAN: Christopher Rios M.D. IDENTIFICATION DATA: This is an 85-year-old male. REASON FOR EVALUATION: Cough. HISTORY OF PRESENT ILLNESS: The patient said that for last 10 days, he could not sleep because of severe dry cough, which was bothering him a lot. He denies any fever. There is no orthopnea, but the cough was worse when he was laying down. When he was walking the cough was slightly better. He has chronic lower extremity edema. The patient actually is known to me very well. He has past medical history of coronary artery disease, anterior LAD stent, he also has hypertension, palpitations, PVCs and chronic lower extremity edema, which he treats with a lot of diuretics and his potassium level was always chronically low. He also has multiple other abnormalities such as pulmonary disease. He has a history of anemia, thrombocytopenia, chronic renal insufficiency, pulmonary aspergillosis, sinusitis, and diabetes. MEDICATIONS: Medications are reconciled and reviewed. HABITS: There is no history of recent smoking or drinking or drug abuse. ALLERGIES: He had a reaction to skin application of iodine, but not to intravenous contrast. REVIEW OF SYSTEMS: There is no vomiting. No nausea. No chest pain. Chronic lower extremity edema, which is slightly controlled by extensive diuretics. PHYSICAL EXAMINATION: VITAL SIGNS: Revealed blood pressure 130/70, heart rate is 80, temperature is 98.1 degrees, and oxygen saturation 99%. HEENT: PERRLA. EOMI. NECK: Neck veins are not distended. There is normal carotid upstroke. There is no bruit. LUNGS: Clear to auscultation bilaterally posteriorly and anteriorly. There is no lymphadenopathy. Neck is supple. HEART: Regular accentuated A2. PMI is in the sixth intercostal space and midclavicular line. ABDOMEN: Soft and nontender. EXTREMITIES: Lower extremities, bilateral moderate edema. LABORATORY DATA: Significant for white count 4.7, hemoglobin 9.7, and platelets 11,000. Chemistries reviewed. Potassium was 3.3 yesterday today was not checked. An EKG shows left ventricular hypertrophy with some mild ST changes. No acute changes. His chest x-ray is negative for congestive heart failure or pneumonia. IMPRESSION AND RECOMMENDATION: 1. Cough most likely due to pharyngitis viral or bacteria with no evidence of ongoing infection. I strongly doubt the presence of heart failure. 2. Coronary artery disease, stable on current medications. 3. Hypokalemia should be replaced because the patient takes a lot of diuretics. Thank you very much for your consultation. I agree with current management and I do not have any additional orders. Allison Suazo M.D. DR: JP JOB#: [id number] CC:
[2016-02-26] MEDS ORDERED: guaiFENesin 100mg/5ml Liq ud ORAL PRN (03:15)
[2016-02-26 04:00] VITALS: BP 131/75
[2016-02-26] MEDS: DuoNeb 0.5-3(2.5)mg/3ml neb HHN SCH ×3 (07:00→23:30)
[2016-02-26 08:09] VITALS: BP 140/62
[2016-02-26] MEDS: Aspirin Baby 81mg NG SCH (09:42)
[2016-02-26] MEDS: Bystolic 2.5mg Tab ORAL SCH (09:42)
[2016-02-26] MEDS: guaiFENesin 600mg tab ORAL SCH ×2 (09:42→17:37)
[2016-02-26] MEDS: Heparin 5000 units/ml inj SUBQ SCH ×3 (09:44→21:48)
--- NOTE | 2016-02-26 09:46 | Pulmonology Progress Note ---
Assessment/Plan Problems: (1) CAD (coronary artery disease) (2) HTN (hypertension) (3) Hypokalemia (4) ARF (acute renal failure) (5) Cough (6) Pneumonia Assessment/Plan -Optimize pulmonary hygiene/mobilize as tolerated -Abx per ID, F/U Cx's and respiratory panel -Mucinex and PRN Robitussin -RTC and PRN bronchodilators -Monitor volumes -F/U TTE -Hep SQ for DVT Px -Aspiration precautions -If TTE ok and Abx switched to PO, stable for D/C from pulmonary standpoint Subjective Allergies: Coded Allergies: No Known Allergies (Unverified , 02/23/16) Subjective Feels better, AFVSS, stable on RA No cough, no SOB, no F/C Objective Last 24 Hour Vital Signs Date Time Temp Pulse Resp B/P Pulse Ox O2 Delivery O2 Flow Rate FiO2 02/26/16 08:09 98.1 83 20 140/62 97 Room Air 83 02/26/16 07:26 Room Air 02/26/16 07:26 Room Air 02/26/16 07:25 72 16 Room Air 21 02/26/16 04:00 97.5 83 20 131/75 95 Room Air 02/25/16 23:40 Room Air 21 02/25/16 23:30 Room Air 21 02/25/16 23:21 98.7 79 20 142/70 97 Room Air 02/25/16 20:00 98.1 88 20 136/73 97 Room Air 02/25/16 20:00 94 02/25/16 19:30 82 16 Room Air 21 02/25/16 16:00 98.4 84 20 129/77 97 Room Air 02/25/16 16:00 82 02/25/16 15:33 89 16 100 Room Air 21 02/25/16 15:25 21 02/25/16 15:25 83 16 96 Room Air 21 02/25/16 12:00 76 02/25/16 11:33 98.1 84 20 131/68 99 Room Air Intake and Output 02/25/16 02/26/16 19:00 07:00 Intake Total 1471 ml 797 ml Balance 1471 ml 797 ml Intake Oral 860 ml 240 ml IV Total 611 ml 557 ml # Voids 2 2 General Appearance: WD/WN, no acute distress HEENT: normocephalic, atraumatic, anicteric, mucous membranes moist Respiratory/Chest: chest wall non-tender, lungs clear, normal breath sounds, no respiratory distress, no accessory muscle use Cardiovascular: normal peripheral pulses, normal rate, regular rhythm Abdomen: normal bowel sounds, soft, non tender, no organomegaly, non distended , no mass Extremities: no cyanosis, no clubbing, no edema Microbiology Date/Time Source Procedure Growth Status 02/23/16 14:45 Blood Blood Culture - Preliminary NO GROWTH AFTER 48 HOURS Resulted 02/23/16 14:45 Blood Blood Culture - Preliminary NO GROWTH AFTER 48 HOURS Resulted 02/23/16 16:00 Nasal Nares MRSA Culture - Final NO METHICILLIN RESISTANT STAPH AUREUS... Complete 02/23/16 16:00 Rectum VRE Culture - Final NO VANCOMYCIN RESISTANT ENTEROCOCCUS ... Complete Current Medications Medications (Trade) Dose Ordered Sig/Jyoti Route PRN Reason Start Time Stop Time Status Last Admin Dose Admin Acetaminophen (Tylenol) 650 mg Q4H PRN ORAL Mild Pain (Pain Scale 1-3) 02/26/16 04:30 03/27/16 04:29 Acetaminophen (Tylenol) 650 mg Q4H PRN ORAL fever 02/26/16 04:30 03/27/16 04:29 Albuterol/ Ipratropium (DuoNeb 0.5-3(2.5)mg/3ml) 3 ml Q8HRT HHN 02/26/16 07:00 03/02/16 06:59 Aspirin (ASA) 81 mg DAILY NG 02/26/16 09:00 03/27/16 08:59 Atorvastatin Calcium (Lipitor) 40 mg QHS ORAL 02/26/16 21:00 03/27/16 20:59 Azithromycin 500 mg/Dextrose 250 ml @ 250 mls/hr Q24H IV 02/26/16 19:00 03/04/16 18:59 Ceftriaxone Sodium 1 gm/ Dextrose 50 ml @ 100 mls/hr Q24H IV 02/26/16 18:00 03/04/16 17:59 Clopidogrel Bisulfate (Plavix) 75 mg DAILY ORAL 02/26/16 09:00 03/27/16 08:59 Dextrose (Dextrose 50%) STAT PRN IV Hypoglycemia 02/26/16 16:30 03/27/16 16:29 Glimepiride (Amaryl) 1 mg QHS ORAL 02/26/16 21:00 03/27/16 20:59 Guaifenesin (Mucinex) 600 mg TWICE A DAY ORAL 02/26/16 09:00 03/27/16 08:59 Guaifenesin (Robitussin) 100 mg Q4H PRN ORAL For Cough 02/26/16 03:15 03/27/16 03:14 Heparin Sodium (Porcine) (Heparin 5000 units/ml) 5,000 units EVERY 12 HOURS SUBQ 02/26/16 09:00 03/27/16 08:59 Magnesium Hydroxide (Mom) 30 ml HSPRN PRN ORAL Constipation 02/26/16 16:30 03/27/16 16:29 Nebivolol (Bystolic) 2.5 mg DAILY ORAL 02/26/16 09:00 03/27/16 08:59 Ondansetron HCl (Zofran) 4 mg Q4HR PRN IVP Nausea & Vomiting 02/26/16 05:00 03/27/16 04:59 Potassium Chloride (K-Dur) 20 meq TWICE A DAY ORAL 02/26/16 09:00 03/27/16 08:59 Primidone (Mysoline) 100 mg Q24H ORAL 02/26/16 14:00 03/27/16 13:59 Primidone (Mysoline) 150 mg DAILY ORAL 02/26/16 09:00 03/27/16 08:59 Primidone (Mysoline) 250 mg QHS ORAL 02/26/16 21:00 03/27/16 20:59 Sodium Chloride (Sodium Chloride 1000ml bag) 1,000 ml @ 50 mls/hr Q20H IVLG 02/26/16 02:30 03/27/16 02:29 Sorbitol (Sorbitol) 30 ml TIDPRN PRN ORAL Constipation 02/26/16 11:30 03/27/16 11:29 Zolpidem Tartrate (Ambien) 5 mg HSPRN PRN ORAL Insomnia 02/26/16 16:30 03/27/16 16:29 NIK BOONE M.D. Feb 26, 2016 09:46
[2016-02-26 11:07] LABS: BASOPHILS % (AUTO) 0.7 % (0.0-2.0); LYMPHOCYTES % (AUTO) 18.6 % (20.0-45.0); MEAN CORPUSCULAR HEMOGLOBIN 30.8 PG (27.0-31.0); MEAN CORPUSCULAR HGB CONC 34.2 G/DL (32.0-36.0); MEAN CORPUSCULAR VOLUME 90 FL (80-99); MEAN PLATELET VOLUME 5.6 FL (6.5-10.1); MONOCYTES % (AUTO) 9.8 % (1.0-10.0); PLATELET COUNT 158 K/UL (150-450); RED BLOOD COUNT 3.56 M/UL (4.70-6.10); RED CELL DISTRIBUTION WIDTH 12.1 % (11.6-14.8); WHITE BLOOD COUNT 5.5 K/UL (4.8-10.8)
[2016-02-26 11:20] LABS: ANION GAP 12 (5-15); CALCIUM 9.4 mg/dL (8.6-10.2); CARBON DIOXIDE 30 mEQ/L (20-30); CHLORIDE 98 mEQ/L (98-107); CREATININE 1.1 mg/dL (0.7-1.2); HEMOLYSIS 0; POTASSIUM 4.1 mEQ/L (3.4-4.9); SODIUM 140 mEQ/L (135-145)
[2016-02-26] MEDS ORDERED: Sorbitol Solution UD 30ml ORAL PRN (11:30)
[2016-02-26 12:07] VITALS: BP 147/89
[2016-02-26] MEDS ORDERED: GUAIFENESI100 MG/5 M ORAL (14:00)
--- NOTE | 2016-02-26 14:03 | Cardiology Progress Note ---
Assessment/Plan Assessment/Plan noted potassium no evidence of CHF Subjective Subjective still coughing no orthopnea moderate leg edema Objective Last 24 Hour Vital Signs Date Time Temp Pulse Resp B/P Pulse Ox O2 Delivery O2 Flow Rate FiO2 02/26/16 12:07 97.7 74 20 147/89 97 Room Air 74 02/26/16 08:09 98.1 83 20 140/62 97 Room Air 83 02/26/16 07:26 Room Air 02/26/16 07:26 Room Air 02/26/16 07:25 72 16 Room Air 21 02/26/16 04:00 97.5 83 20 131/75 95 Room Air 02/25/16 23:40 Room Air 21 02/25/16 23:30 Room Air 21 02/25/16 23:21 98.7 79 20 142/70 97 Room Air 02/25/16 20:00 98.1 88 20 136/73 97 Room Air 02/25/16 20:00 94 02/25/16 19:30 82 16 Room Air 21 02/25/16 16:00 98.4 84 20 129/77 97 Room Air 02/25/16 16:00 82 02/25/16 15:33 89 16 100 Room Air 21 02/25/16 15:25 21 02/25/16 15:25 83 16 96 Room Air 21 General Appearance: alert EENT: PERRL/EOMI Neck: no JVD Rhythm: SB, PVCs Cardiovascular: regular rhythm Respiratory/Chest: chest wall non-tender, no respiratory distress Abdomen: soft Extremities: moderate edema Intake and Output 02/25/16 02/26/16 19:00 07:00 Intake Total 1471 ml 797 ml Balance 1471 ml 797 ml Intake Oral 860 ml 240 ml IV Total 611 ml 557 ml # Voids 2 2 Laboratory Tests Test 02/26/16 11:00 White Blood Count 5.5 K/UL (4.8-10.8) Red Blood Count 3.56 M/UL (4.70-6.10) L Hemoglobin 10.9 G/DL (14.2-18.0) L Hematocrit 32.0 % (42.0-52.0) L Mean Corpuscular Volume 90 FL (80-99) Mean Corpuscular Hemoglobin 30.8 PG (27.0-31.0) Mean Corpuscular Hemoglobin Concent 34.2 G/DL (32.0-36.0) Red Cell Distribution Width 12.1 % (11.6-14.8) Platelet Count 158 K/UL (150-450) Mean Platelet Volume 5.6 FL (6.5-10.1) L Neutrophils (%) (Auto) 67.0 % (45.0-75.0) Lymphocytes (%) (Auto) 18.6 % (20.0-45.0) L Monocytes (%) (Auto) 9.8 % (1.0-10.0) Eosinophils (%) (Auto) 4.0 % (0.0-3.0) H Basophils (%) (Auto) 0.7 % (0.0-2.0) Sodium Level 140 mEQ/L (135-145) Potassium Level 4.1 mEQ/L (3.4-4.9) Chloride Level 98 mEQ/L (98-107) Carbon Dioxide Level 30 mEQ/L (20-30) Anion Gap 12 (5-15) Blood Urea Nitrogen 23 mg/dL (7-23) Creatinine 1.1 mg/dL (0.7-1.2) Estimat Glomerular Filtration Rate mL/min (>60) Glucose Level 122 mg/dL (74-106) H Calcium Level 9.4 mg/dL (8.6-10.2) Magnesium Level 1.9 mg/dL (1.7-2.5) Microbiology Date/Time Source Procedure Growth Status 02/23/16 14:45 Blood Blood Culture - Preliminary NO GROWTH AFTER 48 HOURS Resulted 02/23/16 14:45 Blood Blood Culture - Preliminary NO GROWTH AFTER 48 HOURS Resulted 02/23/16 16:00 Nasal Nares MRSA Culture - Final NO METHICILLIN RESISTANT STAPH AUREUS... Complete 02/23/16 16:00 Rectum VRE Culture - Final NO VANCOMYCIN RESISTANT ENTEROCOCCUS ... Complete MICHELLE SHAFFER Feb 26, 2016 14:03
--- NOTE | 2016-02-26 14:05 | Consultation ---
Consult Note Assessment/Plan DC dictated # [id number] ANNA MARIE GREEN Feb 26, 2016 14:05
--- NOTE | 2016-02-26 14:26 | Infectious Diseases Prog Note ---
Assessment/Plan Assessment/Plan A: Sinusitis Bronchitis ? early pneumonia Elevated transaminase ARF, CKD P: Agree with discharge with PO Augmentin Case was DW PMD Subjective ROS Limited/Unobtainable: No Constitutional: Reports: no symptoms HEENT: Reports: no symptoms Respiratory: Reports: no symptoms Cardiovascular: Reports: no symptoms Gastrointestinal/Abdominal: Reports: no symptoms Genitourinary: Reports: no symptoms Allergies: Coded Allergies: No Known Allergies (Unverified , 02/23/16) Objective Vital Signs Last 24 Hour Vital Signs Date Time Temp Pulse Resp B/P Pulse Ox O2 Delivery O2 Flow Rate FiO2 02/26/16 12:07 97.7 74 20 147/89 97 Room Air 74 02/26/16 08:09 98.1 83 20 140/62 97 Room Air 83 02/26/16 07:26 Room Air 02/26/16 07:26 Room Air 02/26/16 07:25 72 16 Room Air 21 02/26/16 04:00 97.5 83 20 131/75 95 Room Air 02/25/16 23:40 Room Air 21 02/25/16 23:30 Room Air 21 02/25/16 23:21 98.7 79 20 142/70 97 Room Air 02/25/16 20:00 98.1 88 20 136/73 97 Room Air 02/25/16 20:00 94 02/25/16 19:30 82 16 Room Air 21 02/25/16 16:00 98.4 84 20 129/77 97 Room Air 02/25/16 16:00 82 02/25/16 15:33 89 16 100 Room Air 21 02/25/16 15:25 21 02/25/16 15:25 83 16 96 Room Air 21 Height (Feet): 6 Height (Inches): 0.00 Weight (Pounds): 180 General Appearance: no acute distress HEENT: mucous membranes moist Respiratory/Chest: lungs clear Cardiovascular: normal peripheral pulses Abdomen: soft, non tender Extremities: no edema Neurologic/Psychiatric: alert, oriented x 3, responsive Microbiology Date/Time Source Procedure Growth Status 02/23/16 14:45 Blood Blood Culture - Preliminary NO GROWTH AFTER 48 HOURS Resulted 02/23/16 14:45 Blood Blood Culture - Preliminary NO GROWTH AFTER 48 HOURS Resulted 02/23/16 16:00 Nasal Nares MRSA Culture - Final NO METHICILLIN RESISTANT STAPH AUREUS... Complete 02/23/16 16:00 Rectum VRE Culture - Final NO VANCOMYCIN RESISTANT ENTEROCOCCUS ... Complete Laboratory Tests Test 02/26/16 11:00 White Blood Count 5.5 K/UL (4.8-10.8) Red Blood Count 3.56 M/UL (4.70-6.10) L Hemoglobin 10.9 G/DL (14.2-18.0) L Hematocrit 32.0 % (42.0-52.0) L Mean Corpuscular Volume 90 FL (80-99) Mean Corpuscular Hemoglobin 30.8 PG (27.0-31.0) Mean Corpuscular Hemoglobin Concent 34.2 G/DL (32.0-36.0) Red Cell Distribution Width 12.1 % (11.6-14.8) Platelet Count 158 K/UL (150-450) Mean Platelet Volume 5.6 FL (6.5-10.1) L Neutrophils (%) (Auto) 67.0 % (45.0-75.0) Lymphocytes (%) (Auto) 18.6 % (20.0-45.0) L Monocytes (%) (Auto) 9.8 % (1.0-10.0) Eosinophils (%) (Auto) 4.0 % (0.0-3.0) H Basophils (%) (Auto) 0.7 % (0.0-2.0) Sodium Level 140 mEQ/L (135-145) Potassium Level 4.1 mEQ/L (3.4-4.9) Chloride Level 98 mEQ/L (98-107) Carbon Dioxide Level 30 mEQ/L (20-30) Anion Gap 12 (5-15) Blood Urea Nitrogen 23 mg/dL (7-23) Creatinine 1.1 mg/dL (0.7-1.2) Estimat Glomerular Filtration Rate mL/min (>60) Glucose Level 122 mg/dL (74-106) H Calcium Level 9.4 mg/dL (8.6-10.2) Magnesium Level 1.9 mg/dL (1.7-2.5) Current Medications Medications (Trade) Dose Ordered Sig/Jyoti Route PRN Reason Start Time Stop Time Status Last Admin Dose Admin Acetaminophen (Tylenol) 650 mg Q4H PRN ORAL Mild Pain (Pain Scale 1-3) 02/26/16 04:30 03/27/16 04:29 Acetaminophen (Tylenol) 650 mg Q4H PRN ORAL fever 02/26/16 04:30 03/27/16 04:29 Albuterol/ Ipratropium (DuoNeb 0.5-3(2.5)mg/3ml) 3 ml Q8HRT HHN 02/26/16 07:00 03/02/16 06:59 Aspirin (ASA) 81 mg DAILY NG 02/26/16 09:00 03/27/16 08:59 02/26/16 09:42 Atorvastatin Calcium (Lipitor) 40 mg QHS ORAL 02/26/16 21:00 03/27/16 20:59 Azithromycin 500 mg/Dextrose 250 ml @ 250 mls/hr Q24H IV 02/26/16 19:00 03/04/16 18:59 Ceftriaxone Sodium 1 gm/ Dextrose 50 ml @ 100 mls/hr Q24H IV 02/26/16 18:00 03/04/16 17:59 Clopidogrel Bisulfate (Plavix) 75 mg DAILY ORAL 02/26/16 09:00 03/27/16 08:59 02/26/16 09:41 Dextrose (Dextrose 50%) STAT PRN IV Hypoglycemia 02/26/16 16:30 03/27/16 16:29 Glimepiride (Amaryl) 1 mg QHS ORAL 02/26/16 21:00 03/27/16 20:59 Guaifenesin (Mucinex) 600 mg TWICE A DAY ORAL 02/26/16 09:00 03/27/16 08:59 02/26/16 09:42 Guaifenesin (Robitussin) 100 mg Q4H PRN ORAL For Cough 02/26/16 03:15 03/27/16 03:14 Heparin Sodium (Porcine) (Heparin 5000 units/ml) 5,000 units EVERY 12 HOURS SUBQ 02/26/16 09:00 03/27/16 08:59 Magnesium Hydroxide (Mom) 30 ml HSPRN PRN ORAL Constipation 02/26/16 16:30 03/27/16 16:29 Nebivolol (Bystolic) 2.5 mg DAILY ORAL 02/26/16 09:00 03/27/16 08:59 02/26/16 09:42 Ondansetron HCl (Zofran) 4 mg Q4HR PRN IVP Nausea & Vomiting 02/26/16 05:00 03/27/16 04:59 Potassium Chloride (K-Dur) 20 meq TWICE A DAY ORAL 02/26/16 09:00 03/27/16 08:59 02/26/16 09:43 Primidone (Mysoline) 100 mg Q24H ORAL 02/26/16 14:00 03/27/16 13:59 02/26/16 13:49 Primidone (Mysoline) 150 mg DAILY ORAL 02/26/16 09:00 03/27/16 08:59 02/26/16 09:41 Primidone (Mysoline) 250 mg QHS ORAL 02/26/16 21:00 03/27/16 20:59 Sodium Chloride (Sodium Chloride 1000ml bag) 1,000 ml @ 50 mls/hr Q20H IVLG 02/26/16 02:30 03/27/16 02:29 Sorbitol (Sorbitol) 30 ml TIDPRN PRN ORAL Constipation 02/26/16 11:30 03/27/16 11:29 Zolpidem Tartrate (Ambien) 5 mg HSPRN PRN ORAL Insomnia 02/26/16 16:30 03/27/16 16:29 JORDANA GREEN Feb 26, 2016 14:26
[2016-02-26] MEDS ORDERED: AUGMENTIN 875-1 EAC1 ORAL (14:39)
--- NOTE | 2016-02-26 15:57 | Diagnostic Imaging Report ---
Indications: COUGH Technique: Portable AP chest Findings: Comparison: 02/23/16 Bilateral interstitial prominence unchanged. No new pulmonary parenchymal or pleural abnormalities. Cardiac silhouette remains upper limits of normal in size. Cardiomediastinal silhouette stable. IMPRESSION: No change from 2 days prior
[2016-02-26 16:00] VITALS: BP 152/80
[2016-02-26] MEDS ORDERED: Milk of Magnesia 30ml Ud ORAL PRN (16:30)
[2016-02-26] MEDS ORDERED: Zolpidem 5mg tab ORAL PRN (16:30)
[2016-02-26] MEDS: Captopril 25mg tab ORAL PRN (17:37)
[2016-02-26] MEDS ORDERED: cefTRIAXone 1 GM in D5W 50 ML IV SCH (18:00)
[2016-02-26 19:00] VITALS: BP 156/86
[2016-02-26] MEDS ORDERED: Glimepiride 1mg tab ORAL SCH (21:00)
[2016-02-26] MEDS ORDERED: Primidone 250mg tab ORAL SCH (21:00)
[2016-02-27] MEDS: Captopril 25mg tab ORAL PRN ×2 (00:16→06:15)
[2016-02-27 00:27] VITALS: BP 179/90
[2016-02-27 02:03] VITALS: BP 162/64
[2016-02-27 04:00] VITALS: BP 149/84
--- NOTE | 2016-02-27 04:17 | Discharge Summary ---
DATE OF ADMISSION: 02/23/2016 DATE OF DISCHARGE: 02/26/2016 CHIEF COMPLAINT: Cough and sputum production. HISTORY OF PRESENT ILLNESS: This 85-year-old [place] male who was admitted with above symptoms. The patient was diagnosed with pneumonia. HOSPITAL COURSE: The patient was started on bronchodilators as well as IV antibiotics. The patient was seen by Dr. Polo Rios for ID consultation, also Dr. Allison Suazo for cardiology, and Dr. Reis for pulmonary. The patient had a severe cough upon presentation, which improved. Eventually, the patient was sent home. The patient refused to go to prison facility and we will try to get his home health. DISCHARGE DIAGNOSES: 1. Pneumonia. 2. Respiratory failure. 3. History of hypertension. Christopher Rios M.D. DR: YAMIL JOB#: [id number] CC:
[2016-02-27] MEDS: DuoNeb 0.5-3(2.5)mg/3ml neb HHN SCH ×2 (07:44→15:00)
[2016-02-27 08:14] VITALS: BP 150/89
[2016-02-27] MEDS: guaiFENesin 600mg tab ORAL SCH (09:08)
[2016-02-27] MEDS: Bystolic 2.5mg Tab ORAL SCH (09:08)
[2016-02-27] MEDS: Aspirin Baby 81mg NG SCH (09:08)
[2016-02-27 11:40] VITALS: BP 140/82
--- NOTE | 2016-02-27 12:37 | General Progress Note ---
Assessment/Plan Problem List: (1) Pneumonia ICD Codes: J18.9 - Pneumonia, unspecified organism SNOMED: 737256805 (2) Anemia ICD Codes: D64.9 - Anemia, unspecified SNOMED: 912901716, 882281224 (3) Respiratory failure with hypoxia ICD Codes: J96.91 - Respiratory failure, unspecified with hypoxia SNOMED: 96437982084405555 (4) CAD (coronary artery disease) ICD Codes: I25.10 - Atherosclerotic heart disease of [place] coronary artery without angina pectoris SNOMED: 07246308 (5) HTN (hypertension) ICD Codes: I10 - Essential (primary) hypertension SNOMED: 50021570 (6) Hypokalemia ICD Codes: E87.6 - Hypokalemia SNOMED: 17651739 (7) ARF (acute renal failure) ICD Codes: N17.9 - Acute kidney failure, unspecified SNOMED: 59798338 Assessment/Plan cont as is DC today Subjective Allergies: Coded Allergies: No Known Allergies (Unverified , 02/23/16) Subjective In NAD Objective Last 24 Hour Vital Signs Date Time Temp Pulse Resp B/P Pulse Ox O2 Delivery O2 Flow Rate FiO2 02/27/16 11:40 97.6 73 21 140/82 97 Room Air 02/27/16 08:14 97.7 81 21 150/89 99 Room Air 02/27/16 07:44 Room Air 02/27/16 07:44 Room Air 02/27/16 06:15 149/84 02/27/16 04:00 98.1 74 18 149/84 98 Room Air 02/27/16 02:03 162/64 02/27/16 00:27 97.9 82 18 179/90 99 Room Air 02/27/16 00:16 179/90 02/26/16 23:45 82 18 98 Room Air 02/26/16 23:44 Room Air 02/26/16 19:37 88 16 Room Air 21 02/26/16 19:00 96.8 89 20 156/86 99 Room Air 02/26/16 17:37 152/80 02/26/16 16:00 97.7 85 20 152/80 99 Room Air 02/26/16 15:11 Room Air 02/26/16 15:11 Room Air Intake and Output 02/26/16 02/27/16 18:59 06:59 Intake Total 770 ml 610 ml Balance 770 ml 610 ml Intake Oral 720 ml 360 ml IV Total 50 ml 250 ml # Voids 3 5 # Bowel Movements 1 Height (Feet): 6 Height (Inches): 0.00 Weight (Pounds): 180 Cardiovascular: normal rate Respiratory/Chest: lungs clear ANNA MARIE GREEN Feb 27, 2016 12:37
[2016-02-27] MEDS ORDERED: Tubing IV Secondary IV ONE (15:44)
--- NOTE | 2016-04-01 14:09 | Cardiology Report ---
APPROVED REPORT EXAM: Two-dimensional and M-mode echocardiogram with Doppler and color Doppler. INDICATION Congestive Heart Failure M-Mode DIMENSIONS IVSd1.4 (0.7-1.1cm)Left Atrium (MM)4.1 (1.6-4.0cm) LVDd4.6 (3.5-5.6cm)Aortic Root3.4 (2.0-3.7cm) PWd1.2 (0.7-1.1cm)Aortic Cusp Exc.1.8 (1.5-2.0cm) LVDs3.9 (2.5-4.0cm) PWs1.4 cm Normal left ventricular chamber size, systolic function and wall motion. Left ventricular ejection fraction estimated to be 60 %. Mild left ventricular hypertrophy. Anterior Echo-free space, may be due to pericardial fat or effusion. Mild left atrial enlargement. Right atrial size at upper limits of normal. Right ventricular chamber sizes are within normal limits. Mild focal aortic valve sclerosis with adequate cusp excursion. Mildly thickened mitral valve leaflets with normal excursion. Mild mitral annulus and aortic root calcification. Pulmonic valve not well visualized. Normal tricuspid valve structure. IVC dilated at 1.9 cm with physiologic collapse. A color flow and spectral Doppler study was performed and revealed: No aortic regurgitation. No aortic stenosis. Mild mitral regurgitation. No mitral stenosis. Mitral diastolic velocities suggest reduced left ventricular relaxation (Grade I). Trace tricuspid regurgitation. Tricuspid systolic velocities suggests peak right ventricular systolic pressure of 9 mmHg.
== END 2016-02-27 15:45 | disposition home health service (06) | DRG 193 ==
LOC: EDBD 14:16 → EDBEDREQSVC 14:41 → EMR 15:05 → 2E 15:20 → EDBEDREQ 15:40 → 4E 02-26 02:19
DX: J18.9 Pneumonia, unspecified organism (principal); J96.91 Respiratory failure, unspecified with hypoxia; N17.9 Acute kidney failure, unspecified; D64.9 Anemia, unspecified; I12.9 Hypertensive chronic kidney disease with stage 1 through stage 4 chronic kidney disease, or unspecified chronic kidney disease; E11.9 Type 2 diabetes mellitus without complications; D69.6 Thrombocytopenia, unspecified; N18.9 Chronic kidney disease, unspecified; E87.6 Hypokalemia; E78.5 Hyperlipidemia, unspecified; I25.10 Atherosclerotic heart disease of native coronary artery without angina pectoris; I25.2 Old myocardial infarction; Z79.4 Long term (current) use of insulin
CPT/HCPCS: 36415; 70450; 71010; 80048; 80053; 80061; 80076; 81003; 82550; 82553; 82962; 83540; 83550; 83605; 83690; 83735; 83880; 84484; 85025; 85610; 85730; 87040; 87081; 93005; 93306; 94640; 94664; J1815; J2405; J7620; J8499

== ENCOUNTER 2019-04-08 01:36 | Inpatient (IN) | payer MEDICARE, MEDICAID ==
[~2019-04-08] VITALS: Ht 180.3 cm; Wt 84.8 kg
[2019-04-08] VITALS (9 sets, daily range): BP systolic 96–149; BP diastolic 57–95
[~2019-04-08 01:36] MED LIST: ATORVASTATIN CA40 MG PO; AUGMENTIN 875-1 EAC1 ORAL; BYSTOLIC2.5 MG ORAL; CAPTOPRIL25 M1 PO; CAPTOPRIL50 MG PO; CLONIDINE HCL0.1 MG PO; CLONIDINE1 EACH TD; CLOPIDOGREL75 MG PO; DEXILANT60 MG PO; FLONASE1 SPRAYS; GLIMEPIRIDE1 MG ORAL; GUAIFENESI100 MG/5 M ORAL; LOSARTAN POTASS50 MG PO; MECLIZINE HCL25 MG PO; MYSOLINE50 MG PO; SPIRONOLACTONE25 MG PO; ULORIC40 MG PO
--- NOTE | 2019-04-08 01:36 | NUR ---
ED Nurse Note: pt presents via EMS arrival RA 40 from home c/o flu like symptoms x 1 day. pt reports HERNNADEZ, chest pain from coughing and fever since yesterday. oral temp 100.2 ao4. nad. changed into gown; attached to monitor. safety measures met.
[2019-04-08] MEDS ORDERED: Albuterol ud Inhalation HHN ONE (01:45)
[2019-04-08] MEDS ORDERED: Acetaminophen 500mg (ES) tab ORAL ONE (01:45)
--- NOTE | 2019-04-08 01:45 | NUR ---
ED Nurse Note: iv access established. blood collected; sent down to lab. unable to collect urine; pt states he will provide urine when able.
--- NOTE | 2019-04-08 01:45 | Emergency Room Report ---
History of Present Illness General Chief Complaint: Fever Source: Patient, Medical Record, EMS Present Illness HPI This is an 88-year-old male with a history of high blood pressure and CAD. He presents with chief complaint of shortness of breath and chest pain. Onset for last 2 to 3 days. Worse with inspiration. Coughing more. [place] weak. Has chest tightness and pain. No radiation. No exertional component. No diaphoresis. Nothing made it better. Nothing made it worse. Also with increasing weakness. Allergies: Coded Allergies: No Known Allergies (Unverified , 02/23/16) Patient History Past Medical History: see triage record, old chart reviewed, HTN Past Surgical History: other Pertinent Family History: none Social History: Denies: smoking Immunizations: other Reviewed Nursing Documentation: PMH: Agreed; PSxH: Agreed Nursing Documentation-PMH Hx Hypertension: Yes Hx Diabetes: Yes Review of Systems Constitutional: Reports: weakness Eye: Denies: eye pain, blurred vision ENT: Denies: ear pain, nose congestion, throat swelling Respiratory: Reports: cough, shortness of breath Cardiovascular: Reports: chest pain; Denies: palpitations Gastrointestinal: Denies: abdominal pain, diarrhea, nausea, vomiting Musculoskeletal: Denies: back pain, joint pain Skin: Denies: rash Neurological: Denies: headache, numbness Endocrine: Denies: increased thirst, increased urine Hematologic/Lymphatic: Denies: easy bruising All Other Systems: negative except mentioned in HPI Physical Exam Vital Signs Date Time Temp Pulse Resp B/P (MAP) Pulse Ox O2 Delivery O2 Flow Rate FiO2 04/08/19 01:37 100.2 80 20 136/80 (98) 96 Room Air Vitals with low-grade fever Sp02 EP Interpretation: reviewed, normal General Appearance: well appearing, no apparent distress, alert Head: normocephalic, atraumatic Eyes: bilateral eye PERRL, bilateral eye EOMI ENT: hearing grossly normal, normal pharynx Neck: full range of motion, supple, no meningismus Respiratory: chest non-tender, rhonchi, wheezing - Very faint Cardiovascular #1: no murmur, irregularly irregular Gastrointestinal: normal bowel sounds, non tender, no mass, no organomegaly, no bruit, non-distended Musculoskeletal: back normal, normal range of motion, gait/station normal Psychiatric: mood/affect normal Medical Decision Making Diagnostic Impression: Primary Impression: Acute exacerbation of CHF (congestive heart failure) Qualified Codes: I50.9 - Heart failure, unspecified Additional Impressions: Atrial fibrillation Qualified Codes: I48.91 - Unspecified atrial fibrillation Hypokalemia Proteinuria Qualified Codes: R80.9 - Proteinuria, unspecified Anemia Qualified Codes: D64.9 - Anemia, unspecified ER Course This patient presents with shortness of breath and a cough. Chest x-ray showed CHF. He is also in atrial fibrillation. Unknown history. Lasix given. He has a low-grade fever but unknown source. Will admit for further work-up. I contacted Dr. Phillips for admission. EKG Diagnostic Results Rate: normal Rhythm: other - afib ST Segments: other - NSST changes Rhythm Strip Diag. Results EP Interpretation: yes Rate: 71 Rhythm: other - afib Chest X-Ray Diagnostic Results Chest X-Ray Diagnostic Results : Chest X-Ray Ordered: Yes # of Views/Limited/Complete: 1 View Indication: Shortness of Breath EP Interpretation: Yes Interpretation: no consolidation, no effusion, no pneumothorax, other - chf Impression: Other - chf Last Vital Signs Date Time Temp Pulse Resp B/P (MAP) Pulse Ox O2 Delivery O2 Flow Rate FiO2 04/08/19 01:37 100.2 80 20 136/80 (98) 96 Room Air Status: improved Disposition: ADMITTED INPATIENT Condition: Serious Andrew Davenport MD Apr 08, 2019 01:45
--- NOTE | 2019-04-08 02:00 | NUR ---
ED Nurse Note: urine collected; sent down to lab.
[2019-04-08 02:29] LABS: ANION GAP 10 mmol/L (5-15); BLOOD UREA NITROGEN 28 mg/dL (7-18); CARBON DIOXIDE 29 MMOL/L (21-32); CHLORIDE 103 MMOL/L (98-107); CREATININE 1.3 MG/DL (0.55-1.30); POTASSIUM 3.1 MMOL/L (3.5-5.1); SODIUM 142 MMOL/L (136-145)
[2019-04-08 02:39] LABS: BASOPHILS % (AUTO) 0.4 % (0.0-2.0); EOSINOPHILS % (AUTO) 0.1 % (0.0-3.0); HEMATOCRIT 31.4 % (42.0-52.0); HEMOGLOBIN 11.1 G/DL (14.2-18.0); LYMPHOCYTES % (AUTO) 8.8 % (20.0-45.0); MEAN CORPUSCULAR VOLUME 87 FL (80-99); MONOCYTES % (AUTO) 7.5 % (1.0-10.0); NEUTROPHILS % (AUTO) 83.3 % (45.0-75.0); PLATELET COUNT 101 K/UL (150-450); RED BLOOD COUNT 3.59 M/UL (4.70-6.10); RED CELL DISTRIBUTION WIDTH 12.5 % (11.6-14.8); WHITE BLOOD COUNT 10.8 K/UL (4.8-10.8)
[2019-04-08 02:42] LABS: ALANINE AMINOTRANSFERASE 27 U/L (12-78); ALBUMIN 3.1 G/DL (3.4-5.0); ALBUMIN/GLOBULIN RATIO 0.8 (1.0-2.7); ALKALINE PHOSPHATASE 145 U/L (46-116); ASPARTATE AMINO TRANSFERASE 19 U/L (15-37); BILIRUBIN,TOTAL 0.4 MG/DL (0.2-1.0); CKMB 0.9 NG/ML (0.0-3.6); CREATINE KINASE 73 U/L (26-308)
[2019-04-08 02:49] LABS: APPEARANCE,URINE CLEAR; BILIRUBIN, URINE NEGATIVE (NEGATIVE); COLOR,URINE PALE YELLOW; GLUCOSE, URINE (UA) NEGATIVE (NEGATIVE); KETONES,URINE NEGATIVE (NEGATIVE); LEUKOCYTE ESTERASE ,URINE NEGATIVE (NEGATIVE); NITRITE,URINE NEGATIVE (NEGATIVE); PH,URINE 6.5 (4.5-8.0); PROTEIN,URINE 2+ (NEGATIVE); UROBILINOGEN,URINE NORMAL MG/DL (0.0-1.0)
--- NOTE | 2019-04-08 04:20 | NUR ---
TRANSFER TO FLOOR: Patient transferred to [facility] as ordered, per haydee lópez. Report given to vickie sneed. patient stable for transfer. patient left via gurney with stephanie and rn. patient sent with belongings list and admission packet.
--- NOTE | 2019-04-08 04:35 | NUR ---
NURSE NOTES: Patient arrived to the unit via gurney at 0435 accompanied by the RN and the quality assurance technician. Received report from MINNIE Matson. Patient is awake, alert, and responsive. Breathing regular and unlabored with no s/s of SOB noted at this time. Patient is on a 2L NC, with saturations in the 90's. Patient denies any pain or discomfort at this time. IV access on the RAC, patent, intact, and saline locked. Placed patient on night monitor, showing sinus rhythm. Belongings list reviewed and signed with the transferring RN. Bed remains in the lowest position, breaks engaged, and call light is within reach at all times. Contacted MD for admitting orders, awaiting response. All other needs attended to, patient remains stable, will continue to monitor.
[2019-04-08] MEDS ORDERED: Albuterol/Ipratropium 3ml neb HHN PRN (07:00)
[2019-04-08] MEDS ORDERED: LORazepam Inj 2mg/ml 1ml IV PRN (07:00)
--- NOTE | 2019-04-08 07:51 | NUR ---
HAND-OFF: Report given to MINNIE Lynch. Pastient is in stable condition. Plan of care endorsed.
--- NOTE | 2019-04-08 08:05 | NUR ---
NURSE NOTES: Received pt from BEATA HARTMAN. Pt is awake and alert, pt has NC 2LMP, pt has intact iv access RAC 20G SL. Pt is eating breakfast by observation. pt is on continues cardiac monitoring. all needs attended, bed is locked and is in the lowest position, call light within easy reach. will continue to monitor.
[2019-04-08] MEDS ORDERED: Bystolic 2.5mg Tab ORAL SCH (09:00)
[2019-04-08] MEDS ORDERED: Heparin 5000 units/ml inj SUBQ SCH (09:00)
[2019-04-08] MEDS ORDERED: Cefepime HCl 2 GM in D5W 110 ML IV SCH (09:00)
[2019-04-08] MEDS: Promethazine/Codeine 5ml UD ORAL PRN ×2 (09:12→15:01)
--- NOTE | 2019-04-08 09:37 | NUR ---
NURSE NOTES: sputum specimen sent to lab, waiting for result.
--- NOTE | 2019-04-08 09:57 | Diagnostic Imaging Report ---
Indication: Shortness of breath Technique: One view of the chest Comparison: none Findings: Linear opacity overlies the right chest. There is bilateral diffuse interstitial congestion with a mild component of airspace edema as well. There is probably a small amount of pleural fluid bilaterally. The heart is borderline enlarged. The aorta is tortuous and calcified Impression: Interstitial and airspace edema Suspect small bilateral pleural effusions Borderline cardiomegaly
[2019-04-08] MEDS ORDERED: Vancomycin 1 GM in D5W 275 ML IVPB SCH (10:00)
--- NOTE | 2019-04-08 10:37 | Infectious Diseases Prog Note ---
Subjective Allergies: Coded Allergies: No Known Allergies (Unverified , 02/23/16) Subjective DIC # [id number] Objective Vital Signs Last 24 Hour Vital Signs Date Time Temp Pulse Resp B/P (MAP) Pulse Ox O2 Delivery O2 Flow Rate FiO2 04/08/19 08:00 97.7 71 20 149/70 (96) 95 04/08/19 05:24 Nasal Cannula 2.0 04/08/19 04:35 97.6 71 17 131/57 (81) 96 04/08/19 04:35 68 04/08/19 04:20 99.5 69 18 124/75 95 Nasal Cannula 2.0 21 04/08/19 04:15 99.5 69 18 124/75 95 Nasal Cannula 2.0 04/08/19 03:17 99.5 71 18 122/76 95 Nasal Cannula 2.0 04/08/19 02:21 99.5 04/08/19 02:00 100.2 79 18 136/80 95 Room Air 21 04/08/19 02:00 82 18 Room Air 21 04/08/19 01:53 82 18 95 Room Air 21 80 18 93 04/08/19 01:37 100.2 80 20 136/80 (98) 96 Room Air Height (Feet): 5 Height (Inches): 11.00 Weight (Pounds): 187 Laboratory Tests Test 04/08/19 01:45 White Blood Count 10.8 K/UL (4.8-10.8) Red Blood Count 3.59 M/UL (4.70-6.10) L Hemoglobin 11.1 G/DL (14.2-18.0) L Hematocrit 31.4 % (42.0-52.0) L Mean Corpuscular Volume 87 FL (80-99) Mean Corpuscular Hemoglobin 30.9 PG (27.0-31.0) Mean Corpuscular Hemoglobin Concent 35.4 G/DL (32.0-36.0) Red Cell Distribution Width 12.5 % (11.6-14.8) Platelet Count 101 K/UL (150-450) L Mean Platelet Volume 6.0 FL (6.5-10.1) L Neutrophils (%) (Auto) 83.3 % (45.0-75.0) H Lymphocytes (%) (Auto) 8.8 % (20.0-45.0) L Monocytes (%) (Auto) 7.5 % (1.0-10.0) Eosinophils (%) (Auto) 0.1 % (0.0-3.0) Basophils (%) (Auto) 0.4 % (0.0-2.0) Prothrombin Time 10.8 SEC (9.30-11.50) Prothromb Time International Ratio 1.0 (0.9-1.1) Activated Partial Thromboplast Time 29 SEC (23-33) Urine Color Pale yellow Urine Appearance Clear Urine pH 6.5 (4.5-8.0) Urine Specific [place] 1.010 (1.005-1.035) Urine Protein 2+ (NEGATIVE) H Urine Glucose (UA) Negative (NEGATIVE) Urine Ketones Negative (NEGATIVE) Urine Blood 2+ (NEGATIVE) H Urine Nitrite Negative (NEGATIVE) Urine Bilirubin Negative (NEGATIVE) Urine Urobilinogen Normal MG/DL (0.0-1.0) Urine Leukocyte Esterase Negative (NEGATIVE) Urine RBC 2-4 /HPF (0 - 0) H Urine WBC 0 /HPF (0 - 0) Urine Squamous Epithelial Cells None /LPF (NONE/OCC) Urine Bacteria Few /HPF (NONE) Sodium Level 142 MMOL/L (136-145) Potassium Level 3.1 MMOL/L (3.5-5.1) L Chloride Level 103 MMOL/L (98-107) Carbon Dioxide Level 29 MMOL/L (21-32) Anion Gap 10 mmol/L (5-15) Blood Urea Nitrogen 28 mg/dL (7-18) H Creatinine 1.3 MG/DL (0.55-1.30) Estimat Glomerular Filtration Rate 52.0 mL/min (>60) Glucose Level 119 MG/DL (74-106) H Lactic Acid Level 1.10 mmol/L (0.4-2.0) Calcium Level 9.0 MG/DL (8.5-10.1) Total Bilirubin 0.4 MG/DL (0.2-1.0) Aspartate Amino Transf (AST/SGOT) 19 U/L (15-37) Alanine Aminotransferase (ALT/SGPT) 27 U/L (12-78) Alkaline Phosphatase 145 U/L (46-116) H Total Creatine Kinase 73 U/L (26-308) Creatine Kinase MB 0.9 NG/ML (0.0-3.6) Creatine Kinase MB Relative Index 1.2 Troponin I 0.043 ng/mL (0.000-0.056) Pro-B-Type Natriuretic Peptide 8608 pg/mL (0-125) H Total Protein 7.2 G/DL (6.4-8.2) Albumin 3.1 G/DL (3.4-5.0) L Globulin 4.1 g/dL Albumin/Globulin Ratio 0.8 (1.0-2.7) L Current Medications Medications (Trade) Dose Ordered Sig/Jyoti Route PRN Reason Start Time Stop Time Status Last Admin Dose Admin Acetaminophen (Tylenol) 650 mg Q4H PRN ORAL FEVER 04/08/19 07:00 05/08/19 06:59 Albuterol/ Ipratropium (Albuterol/ Ipratropium) 3 ml Q4H PRN HHN Shortness of Breath 04/08/19 07:00 04/13/19 06:59 Atorvastatin Calcium (Lipitor) 40 mg QHS ORAL 04/08/19 21:00 05/08/19 20:59 Cefepime HCl 2 gm/ Dextrose 110 ml @ 220 mls/hr EVERY 12 HOURS IV 04/08/19 09:00 04/15/19 08:59 04/08/19 09:11 Clopidogrel Bisulfate (Plavix) 75 mg DAILY ORAL 04/08/19 09:00 05/08/19 08:59 04/08/19 09:12 Dextrose (Dextrose 50%) 25 ml Q30M PRN IV Hypoglycemia 04/08/19 07:00 05/08/19 06:59 Dextrose (Dextrose 50%) 50 ml Q30M PRN IV Hypoglycemia 04/08/19 07:00 05/08/19 06:59 Heparin Sodium (Porcine) (Heparin 5000 units/ml) 5,000 units EVERY 12 HOURS SUBQ 04/08/19 09:00 05/08/19 08:59 Insulin Aspart (NovoLOG) BEFORE MEALS AND HS SUBQ 04/08/19 11:30 05/08/19 11:29 Lorazepam (Ativan 2mg/ml 1ml) 2 mg Q2H PRN IV For Anxiety 04/08/19 07:00 04/15/19 06:59 Nebivolol (Bystolic) 2.5 mg DAILY ORAL 04/08/19 09:00 05/08/19 08:59 04/08/19 09:12 Ondansetron HCl (Zofran) 4 mg Q6H PRN IVP Nausea & Vomiting 04/08/19 07:00 05/08/19 06:59 Polyethylene Glycol (Miralax) 17 gm DAILYPRN PRN ORAL Constipation 04/08/19 07:00 05/08/19 06:59 Primidone (Mysoline) 500 mg DAILY ORAL 04/08/19 09:00 05/08/19 08:59 UNV Promethazine HCl/ Codeine (Phenergan with Codeine) 5 ml Q4H PRN ORAL For Cough 04/08/19 07:00 05/08/19 06:59 04/08/19 09:12 Sodium Chloride 1,000 ml @ 50 mls/hr Q20H IV 04/08/19 22:50 05/08/19 22:49 Vancomycin HCl (Vanco rx to dose) 1 ea DAILY PRN MISC VANCO 04/08/19 07:15 05/08/19 07:14 Vancomycin HCl 1 gm/Dextrose 275 ml @ 183.3 mls/ hr Q24H IVPB 04/08/19 10:00 04/13/19 09:59 04/08/19 10:08 Jean-Pierre Raymond MD Apr 08, 2019 10:37
[2019-04-08] MEDS: NovoLOG Insulin Flexpen SUBQ SCH ×3 (11:30→21:00)
--- NOTE | 2019-04-08 12:26 | NUR ---
NURSE NOTES: Dr MORRISSEY visited pt and is aware about fever, tachycardia and other lab results and V/S, no new order to RN, Dr murillo F/U. Dr OLSON is aware about the time of iv fluid, ordered to start now, noted and carried out. will continue to monitor.
--- NOTE | 2019-04-08 13:09 | Consultation ---
History of Present Illness General Chief Complaint: Fever Present Illness HPI 88-year-old male with a history of high blood pressure and CAD, DM, afib presents to ER with chief complaint of shortness of breath and pleuritic chest pain for 2 to 3 days which is worse with inspiration. Pt was febrile in ER. His CXR showed interstitial infiltrate. Allergies: Coded Allergies: No Known Allergies (Unverified , 02/23/16) Medication History Scheduled Amoxicillin/Potassium Clav 875-125* (Augmentin 875-125 Tablet*), 1 TAB ORAL TWICE A DAY, (Reported) Atorvastatin Calcium* (Atorvastatin Calcium*), 40 MG PO QHS, (Reported) Clopidogrel* (Clopidogrel*), 75 MG PO QD, (Reported) Dexlansoprazole (Dexilant), 60 MG PO QD, (Reported) Febuxostat (Uloric), 40 MG PO QD, (Reported) Glimepiride* (Glimepiride*), 1 MG ORAL BEFORE BREAKFAST, (Reported) Losartan Potassium* (Losartan Potassium*), 50 MG PO QD, (Reported) Nebivolol Hcl* (Bystolic*), 2.5 MG ORAL DAILY, (Reported) Primidone (Primidone), 500 MG PO QD in 3 doses, (Reported) Scheduled PRN Guaifenesin* (Guaifenesin*), 100 MG ORAL Q4H PRN Patient History Healthcare decision maker Resuscitation status Full Code Advanced Directive on File Past Medical/Surgical History Past Medical/Surgical History: (1) Atrial fibrillation (2) HTN (hypertension) (3) CAD (coronary artery disease) (4) Diabetes mellitus Review of Systems Respiratory: Reports: cough, sputum Cardiovascular: Reports: chest pain All Other Systems: negative except mentioned in HPI Physical Exam General Appearance: WD/WN, no apparent distress Lines, tubes and drains: peripheral HEENT: normocephalic, atraumatic Neck: normal alignment, supple Respiratory/Chest: rhonchi - left, rhonchi - right Breasts: no masses Cardiovascular/Chest: normal peripheral pulses, normal rate Abdomen: normal bowel sounds, non tender, soft Extremities: normal range of motion, non-tender Last 24 Hour Vital Signs Date Time Temp Pulse Resp B/P (MAP) Pulse Ox O2 Delivery O2 Flow Rate FiO2 04/08/19 12:02 101.7 82 18 134/95 (108) 95 04/08/19 08:14 64 04/08/19 08:00 97.7 71 20 149/70 (96) 95 04/08/19 08:00 2.0 04/08/19 05:24 Nasal Cannula 2.0 04/08/19 04:35 97.6 71 17 131/57 (81) 96 04/08/19 04:35 68 04/08/19 04:20 99.5 69 18 124/75 95 Nasal Cannula 2.0 21 04/08/19 04:15 99.5 69 18 124/75 95 Nasal Cannula 2.0 04/08/19 03:17 99.5 71 18 122/76 95 Nasal Cannula 2.0 04/08/19 02:21 99.5 04/08/19 02:00 100.2 79 18 136/80 95 Room Air 21 04/08/19 02:00 82 18 Room Air 21 04/08/19 01:53 82 18 95 Room Air 21 80 18 93 04/08/19 01:37 100.2 80 20 136/80 (98) 96 Room Air Intake and Output 04/07/19 04/08/19 19:00 07:00 # Voids 3 Laboratory Tests Test 04/08/19 01:45 White Blood Count 10.8 K/UL (4.8-10.8) Red Blood Count 3.59 M/UL (4.70-6.10) L Hemoglobin 11.1 G/DL (14.2-18.0) L Hematocrit 31.4 % (42.0-52.0) L Mean Corpuscular Volume 87 FL (80-99) Mean Corpuscular Hemoglobin 30.9 PG (27.0-31.0) Mean Corpuscular Hemoglobin Concent 35.4 G/DL (32.0-36.0) Red Cell Distribution Width 12.5 % (11.6-14.8) Platelet Count 101 K/UL (150-450) L Mean Platelet Volume 6.0 FL (6.5-10.1) L Neutrophils (%) (Auto) 83.3 % (45.0-75.0) H Lymphocytes (%) (Auto) 8.8 % (20.0-45.0) L Monocytes (%) (Auto) 7.5 % (1.0-10.0) Eosinophils (%) (Auto) 0.1 % (0.0-3.0) Basophils (%) (Auto) 0.4 % (0.0-2.0) Prothrombin Time 10.8 SEC (9.30-11.50) Prothromb Time International Ratio 1.0 (0.9-1.1) Activated Partial Thromboplast Time 29 SEC (23-33) Urine Color Pale yellow Urine Appearance Clear Urine pH 6.5 (4.5-8.0) Urine Specific [place] 1.010 (1.005-1.035) Urine Protein 2+ (NEGATIVE) H Urine Glucose (UA) Negative (NEGATIVE) Urine Ketones Negative (NEGATIVE) Urine Blood 2+ (NEGATIVE) H Urine Nitrite Negative (NEGATIVE) Urine Bilirubin Negative (NEGATIVE) Urine Urobilinogen Normal MG/DL (0.0-1.0) Urine Leukocyte Esterase Negative (NEGATIVE) Urine RBC 2-4 /HPF (0 - 0) H Urine WBC 0 /HPF (0 - 0) Urine Squamous Epithelial Cells None /LPF (NONE/OCC) Urine Bacteria Few /HPF (NONE) Sodium Level 142 MMOL/L (136-145) Potassium Level 3.1 MMOL/L (3.5-5.1) L Chloride Level 103 MMOL/L (98-107) Carbon Dioxide Level 29 MMOL/L (21-32) Anion Gap 10 mmol/L (5-15) Blood Urea Nitrogen 28 mg/dL (7-18) H Creatinine 1.3 MG/DL (0.55-1.30) Estimat Glomerular Filtration Rate 52.0 mL/min (>60) Glucose Level 119 MG/DL (74-106) H Lactic Acid Level 1.10 mmol/L (0.4-2.0) Calcium Level 9.0 MG/DL (8.5-10.1) Total Bilirubin 0.4 MG/DL (0.2-1.0) Aspartate Amino Transf (AST/SGOT) 19 U/L (15-37) Alanine Aminotransferase (ALT/SGPT) 27 U/L (12-78) Alkaline Phosphatase 145 U/L (46-116) H Total Creatine Kinase 73 U/L (26-308) Creatine Kinase MB 0.9 NG/ML (0.0-3.6) Creatine Kinase MB Relative Index 1.2 Troponin I 0.043 ng/mL (0.000-0.056) Pro-B-Type Natriuretic Peptide 8608 pg/mL (0-125) H Total Protein 7.2 G/DL (6.4-8.2) Albumin 3.1 G/DL (3.4-5.0) L Globulin 4.1 g/dL Albumin/Globulin Ratio 0.8 (1.0-2.7) L Height (Feet): 5 Height (Inches): 11.00 Weight (Pounds): 187 Medications Current Medications Medications (Trade) Dose Ordered Sig/Jyoti Route PRN Reason Start Time Stop Time Status Last Admin Dose Admin Acetaminophen (Tylenol) 650 mg Q4H PRN ORAL FEVER 04/08/19 07:00 05/08/19 06:59 04/08/19 12:20 Albuterol/ Ipratropium (Albuterol/ Ipratropium) 3 ml Q4H PRN HHN Shortness of Breath 04/08/19 07:00 04/13/19 06:59 Atorvastatin Calcium (Lipitor) 40 mg QHS ORAL 04/08/19 21:00 05/08/19 20:59 Azithromycin 500 mg/Dextrose 275 ml @ 275 mls/hr Q24HRS IV 04/08/19 14:00 04/14/19 14:59 Cefepime HCl 2 gm/ Sodium Chloride 110 ml @ 220 mls/hr DAILY IV 04/09/19 09:00 04/16/19 08:59 Clopidogrel Bisulfate (Plavix) 75 mg DAILY ORAL 04/08/19 09:00 05/08/19 08:59 04/08/19 09:12 Dextrose (Dextrose 50%) 25 ml Q30M PRN IV Hypoglycemia 04/08/19 07:00 05/08/19 06:59 Dextrose (Dextrose 50%) 50 ml Q30M PRN IV Hypoglycemia 04/08/19 07:00 05/08/19 06:59 Heparin Sodium (Porcine) (Heparin 5000 units/ml) 5,000 units EVERY 12 HOURS SUBQ 04/08/19 09:00 05/08/19 08:59 Insulin Aspart (NovoLOG) BEFORE MEALS AND HS SUBQ 04/08/19 11:30 05/08/19 11:29 Lorazepam (Ativan 2mg/ml 1ml) 2 mg Q2H PRN IV For Anxiety 04/08/19 07:00 04/15/19 06:59 Nebivolol (Bystolic) 2.5 mg DAILY ORAL 04/08/19 09:00 05/08/19 08:59 04/08/19 09:12 Ondansetron HCl (Zofran) 4 mg Q6H PRN IVP Nausea & Vomiting 04/08/19 07:00 05/08/19 06:59 Polyethylene Glycol (Miralax) 17 gm DAILYPRN PRN ORAL Constipation 04/08/19 07:00 05/08/19 06:59 Primidone (Mysoline) 500 mg DAILY ORAL 04/08/19 09:00 05/08/19 08:59 UNV Promethazine HCl/ Codeine (Phenergan with Codeine) 5 ml Q4H PRN ORAL For Cough 04/08/19 07:00 05/08/19 06:59 04/08/19 09:12 Sodium Chloride 1,000 ml @ 50 mls/hr Q20H IV 04/08/19 22:50 05/08/19 22:49 04/08/19 12:23 Assessment/Plan Problem List: (1) Community acquired pneumonia ICD Codes: J18.9 - Pneumonia, unspecified organism SNOMED: 198370077 (2) Anemia ICD Codes: D64.9 - Anemia, unspecified SNOMED: 883146776 Qualifiers: Qualified Codes: D64.9 - Anemia, unspecified (3) Atrial fibrillation ICD Codes: I48.91 - Unspecified atrial fibrillation SNOMED: 70371036 Qualifiers: Qualified Codes: I48.91 - Unspecified atrial fibrillation (4) Diabetes mellitus ICD Codes: E11.9 - Type 2 diabetes mellitus without complications SNOMED: 89767845 (5) CAD (coronary artery disease) ICD Codes: I25.10 - Atherosclerotic heart disease of [place] coronary artery without angina pectoris SNOMED: 80097814 (6) HTN (hypertension) ICD Codes: I10 - Essential (primary) hypertension SNOMED: 31904201 Assessment/Plan: respiratory treatment rubio cultures iv abx titrate fio2 to sat of 92% monitor Heart rate. Afib is controlled anemia w/u Lg Calixto MD Apr 08, 2019 13:09
--- NOTE | 2019-04-08 13:45 | NUR ---
CASE MANAGEMENT:INITIAL REVIEW 88 YR OLD MALE BIBA FROM HOME CC;FEVER SI;AC EXACERBATION OF CHF. ANEMIA. A-FIB. PROTEINURIA. HYPOKALEMIA. 100.2 85 20 136/80 95% 2L NC PLT 101 K+ 3.1 BUN 28 ALK PHOS 145 TROP 0.043 BNP 8608 ALB 3.1 U + PROTEIN, BLOOD, RBC CXR-Interstitial and airspace edema. Suspect small bilateral pleural effusions. Borderline cardiomegaly IS;IVF NS BOLUS ALBUTEROL HHN ONCE LASIX IV ONCE K-CL PO ONCE ADMITTED TO TELEMETRY TELE STATUS DCP;FROM HOME
--- NOTE | 2019-04-08 14:34 | NUR ---
NURSE NOTES: Dr OLSON is aware about pt has sometimes AFIB, He will F/U with Dr DAVIES.
[2019-04-08] MEDS: Azithromycin 500 MG in D5W 275 ML IV SCH (14:58)
--- NOTE | 2019-04-08 15:42 | NUR ---
NURSE NOTES: influenza swab sent to lab, waiting for result.
--- NOTE | 2019-04-08 18:28 | History & Physical ---
History and Physical History & Physicial Dictated for Int Med-DR Phillips no. [id number] Adama Lomas MD Apr 08, 2019 18:28
--- NOTE | 2019-04-08 18:45 | Consultation ---
DATE OF CONSULTATION: 04/08/2019 INFECTIOUS DISEASE CONSULTATION CONSULTING PHYSICIAN: Jean-Pierre Raymond M.D. REFERRING PHYSICIAN: Lg Calixto M.D. REASON FOR CONSULTATION: Evaluation of the patient for pneumonia, fever, antibiotic management. HISTORY OF PRESENT ILLNESS: The patient is an 88-year-old male with multiple medical problems, who was brought to this hospital because of fever and cough. The patient has been admitted with the impression of pneumonia. Infectious Disease consultation has been requested for further evaluation of the patient and antibiotic management. PAST MEDICAL HISTORY: 1. Hypertension. 2. Diabetes. 3. Anemia. MEDICATIONS: IV vancomycin and cefepime. ALLERGIES: No known drug allergies. SOCIAL HISTORY: The patient lives alone at home. FAMILY HISTORY: Not contributing. REVIEW OF SYSTEMS: A 10-point review was done, except what has been mentioned above has been negative. PHYSICAL EXAMINATION: VITAL SIGNS: Temperature 101.7, pulse 62, respiratory rate 18, and blood pressure 134/95. HEENT: No pale conjunctivae. No icterus. NECK: No lymphadenopathy. CHEST: Coarse breathing sounds. Mild crackles at the base of both lungs. HEART: S1, S2. ABDOMEN: Soft and nontender. EXTREMITY: No cyanosis. NEUROLOGIC: Awake and alert. LABORATORY AND DIAGNOSTIC DATA: White blood cells 10, hemoglobin 11, and platelets 101,000. UA unremarkable. BUN 28 and creatinine 1.3. ALT and AST are unremarkable. Alkaline phosphatase is 145. BMP 8600. Chest x-ray showed interstitial airspace edema. ASSESSMENT: The patient is an 88-year-old male with, 1. Community-acquired pneumonia. 2. Fever. 3. Normal white blood cells. 4. Rule out influenza. PLAN: 1. We will continue the patient on IV cefepime, add Zithromax, hold vancomycin. 2. Monitor cultures (blood, sputum, urine). 3. Rapid influenza screen. 4. Monitor CBC. 5. Monitor BMP. 6. Monitor chest x-ray. 7. Based on the patient's clinical course and laboratories, we will do further recommendations. Thank you, Dr. Calixto and Dr. Phillips, for allowing me to participate in the care of this patient. I will follow the patient with you during this hospitalization. Jean-Pierre Raymond M.D. DR: TANNA JOB#: [id number] CC:
--- NOTE | 2019-04-08 18:56 | Cardiology Progress Note ---
Assessment/Plan Assessment/Plan [id number] chest pain penumonia ? cad mi / stent atrail tacy s/ ablation now with recurrence renal insuf dm htn hld thrombocytopenia heparin for dvt ppx watch plt venoud duplex serial enxyme ekg bb for atrial tachy no afib abx avoid betagonis inhaler Objective Last 24 Hour Vital Signs Date Time Temp Pulse Resp B/P (MAP) Pulse Ox O2 Delivery O2 Flow Rate FiO2 04/08/19 16:23 75 04/08/19 16:00 99.7 81 20 130/61 (84) 95 04/08/19 16:00 2.0 04/08/19 14:16 69 22 99 Nasal Cannula 2.0 66 22 94 04/08/19 14:16 66 22 94 Nasal Cannula 2.0 28 04/08/19 12:50 100.0 04/08/19 12:02 101.7 82 18 134/95 (108) 95 04/08/19 12:00 2.0 04/08/19 11:50 86 04/08/19 09:00 Nasal Cannula 2.0 04/08/19 08:14 64 04/08/19 08:00 97.7 71 20 149/70 (96) 95 04/08/19 08:00 2.0 04/08/19 05:24 Nasal Cannula 2.0 04/08/19 04:35 97.6 71 17 131/57 (81) 96 04/08/19 04:35 68 04/08/19 04:20 99.5 69 18 124/75 95 Nasal Cannula 2.0 21 04/08/19 04:15 99.5 69 18 124/75 95 Nasal Cannula 2.0 04/08/19 03:17 99.5 71 18 122/76 95 Nasal Cannula 2.0 04/08/19 02:21 99.5 04/08/19 02:00 100.2 79 18 136/80 95 Room Air 21 04/08/19 02:00 82 18 Room Air 21 04/08/19 01:53 82 18 95 Room Air 21 80 18 93 04/08/19 01:37 100.2 80 20 136/80 (98) 96 Room Air Intake and Output 04/07/19 04/08/19 19:00 07:00 # Voids 3 Laboratory Tests Test 04/08/19 01:45 White Blood Count 10.8 K/UL (4.8-10.8) Red Blood Count 3.59 M/UL (4.70-6.10) L Hemoglobin 11.1 G/DL (14.2-18.0) L Hematocrit 31.4 % (42.0-52.0) L Mean Corpuscular Volume 87 FL (80-99) Mean Corpuscular Hemoglobin 30.9 PG (27.0-31.0) Mean Corpuscular Hemoglobin Concent 35.4 G/DL (32.0-36.0) Red Cell Distribution Width 12.5 % (11.6-14.8) Platelet Count 101 K/UL (150-450) L Mean Platelet Volume 6.0 FL (6.5-10.1) L Neutrophils (%) (Auto) 83.3 % (45.0-75.0) H Lymphocytes (%) (Auto) 8.8 % (20.0-45.0) L Monocytes (%) (Auto) 7.5 % (1.0-10.0) Eosinophils (%) (Auto) 0.1 % (0.0-3.0) Basophils (%) (Auto) 0.4 % (0.0-2.0) Prothrombin Time 10.8 SEC (9.30-11.50) Prothromb Time International Ratio 1.0 (0.9-1.1) Activated Partial Thromboplast Time 29 SEC (23-33) Urine Color Pale yellow Urine Appearance Clear Urine pH 6.5 (4.5-8.0) Urine Specific [place] 1.010 (1.005-1.035) Urine Protein 2+ (NEGATIVE) H Urine Glucose (UA) Negative (NEGATIVE) Urine Ketones Negative (NEGATIVE) Urine Blood 2+ (NEGATIVE) H Urine Nitrite Negative (NEGATIVE) Urine Bilirubin Negative (NEGATIVE) Urine Urobilinogen Normal MG/DL (0.0-1.0) Urine Leukocyte Esterase Negative (NEGATIVE) Urine RBC 2-4 /HPF (0 - 0) H Urine WBC 0 /HPF (0 - 0) Urine Squamous Epithelial Cells None /LPF (NONE/OCC) Urine Bacteria Few /HPF (NONE) Sodium Level 142 MMOL/L (136-145) Potassium Level 3.1 MMOL/L (3.5-5.1) L Chloride Level 103 MMOL/L (98-107) Carbon Dioxide Level 29 MMOL/L (21-32) Anion Gap 10 mmol/L (5-15) Blood Urea Nitrogen 28 mg/dL (7-18) H Creatinine 1.3 MG/DL (0.55-1.30) Estimat Glomerular Filtration Rate 52.0 mL/min (>60) Glucose Level 119 MG/DL (74-106) H Lactic Acid Level 1.10 mmol/L (0.4-2.0) Calcium Level 9.0 MG/DL (8.5-10.1) Total Bilirubin 0.4 MG/DL (0.2-1.0) Aspartate Amino Transf (AST/SGOT) 19 U/L (15-37) Alanine Aminotransferase (ALT/SGPT) 27 U/L (12-78) Alkaline Phosphatase 145 U/L (46-116) H Total Creatine Kinase 73 U/L (26-308) Creatine Kinase MB 0.9 NG/ML (0.0-3.6) Creatine Kinase MB Relative Index 1.2 Troponin I 0.043 ng/mL (0.000-0.056) Pro-B-Type Natriuretic Peptide 8608 pg/mL (0-125) H Total Protein 7.2 G/DL (6.4-8.2) Albumin 3.1 G/DL (3.4-5.0) L Globulin 4.1 g/dL Albumin/Globulin Ratio 0.8 (1.0-2.7) L Microbiology Date/Time Source Procedure Growth Status 04/08/19 15:45 Nasopharynx - Final Complete 04/08/19 15:45 Nasopharynx - Final Complete Emmanuel Estrada MD Apr 08, 2019 18:56
--- NOTE | 2019-04-08 19:42 | NUR ---
HAND-OFF: Report given to ALBA HARTMAN. Pt is awake and stable, endorsed to F/U for Urin culture.
--- NOTE | 2019-04-08 19:59 | NUR ---
NURSE NOTES: Received report from Cris Sims RN. Pt in stable condition
[2019-04-08] MEDS: Bystolic 2.5mg Tab ORAL SCH (21:12)
[2019-04-08] MEDS: Atorvastatin 20mg tab ORAL SCH (21:13)
--- NOTE | 2019-04-08 22:45 | Consultation ---
DATE OF CONSULTATION: 04/08/2019 CARDIOLOGY CONSULTATION CONSULTING PHYSICIAN: Emmanuel Estrada M.D. REFERRING PHYSICIAN: Adama Lomas M.D. REASON FOR REFERRAL: Chest pain. HISTORY OF PRESENT ILLNESS: This is an elderly gentleman who is followed by Dr. Allison Suazo. The patient presented to the emergency room according to the demo event specialist run sheet complaining of flu-like symptoms. He has been dealing with a cough, body aches, and headaches since the day before admission. He felt hot to touch he said. He has coughing. He has got some aldana sputum that is produced, but to me he denies any fevers or chills. He has had some shortness of breath. He has got pain in the center of the chest. That is only there when he coughs. He also has a separate pain in the lateral aspect of his left chest almost in the posterior axillary line when he takes a deep breath not with activity. He does walk with the help of a walker at home and he denies any dizziness or lightheadedness on standing. He denies palpitations since he has had a prior ablation. 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 Sandoval previously. No prior evidence of congestive heart failure or cardiomyopathy. History of systemic hypertension, hyperlipidemia, renal insufficiency. Does have history of pulmonary aspergillosis, sinusitis, and diabetes mellitus type 2. SOCIAL HISTORY: Denies any alcohol or tobacco use. ALLERGIES: He denied to me any allergies to medication, but apparently the chart indicates he has had a reaction to skin application of [place], but not to intravenous form. REVIEW OF SYSTEMS: GASTROINTESTINAL: Positive for constipation. GENITOURINARY: He denies. PULMONARY: Positive for coughing and sputum production. CONSTITUTIONAL: Denies any fevers or chills. NEUROLOGICAL: Denies any numbness or tingling. PHYSICAL EXAMINATION: GENERAL: An elderly gentleman, in no respiratory distress. VITAL SIGNS: Blood pressure is 130/60 to 134/95, heart rate is in the 80s, temperature 101.7 at approximately noontime today. NECK: Supple. No jugular venous distention. LUNGS: Relatively clear. Few crackles noted in the left base. CARDIAC: Regular rate and rhythm. No heaves, thrills, or gallops noted. ABDOMEN: Soft, nontender. Positive bowel sounds. EXTREMITIES: There is trace dependent edema. LABORATORY AND DIAGNOSTIC DATA: White count of 10.8, hemoglobin 11.1, platelet count of 101. His sodium 142, potassium 3.1, chloride 103, bicarb 29, BUN of 28, creatinine 1.3, and a glucose of 119. Lactic acid of 1.1. Calcium is 9. Bilirubin 0.4. Troponin 0.043. ProBNP of 8600. Albumin of 3.1 and globulin of 4.1. His coags, INR 1 and PTT of 22. Urinalysis 2 to 4 rbc's, 0 wbc's. Chest x-ray performed in the emergency room shows interstitial and airspace edema, suspect bilateral pleural effusions. Borderline cardiomegaly. The patient's telemetry shows evidence of sinus rhythm as well as what appears to be a supraventricular tachycardia at a rate of 131 and his electrocardiogram shows sinus rhythm with first-degree AV block. No ST or T-wave abnormalities. ASSESSMENT AND PLAN: 1. Probable underlying pneumonia. 2. Chronic renal insufficiency. 3. Thrombocytopenia. 4. Coronary artery disease, status post inferior CO as well as 2 stents in the LAD. 5. Hypertension. 6. Diabetes mellitus. 7. Pleuritic chest pain. 8. Atrial tachycardia. Dr. Lomas, this patient was seen in cardiac consultation. The patient's pain that he describes in the center of the chest is unlikely to be ischemic in origin. Serial enzymes, EKG will be ordered. An echocardiogram will be performed. Dr. Suazo who is the patient's primary care physician will follow the patient along. The patient will be followed. Avoidance of beta-agonist inhalers may help decrease the frequency of the episodes of tachycardia. Beta-blockers will be continued. The patient does receive some at home and those will be continued to help with management of the tachycardia. If he has has not been on beta-blockers before, I will start on some beta-blockers at this time and the patient is status post atrial tachycardia ablation sometime ago. Cardiac enzymes again will be repeated and a venous duplex study of the lower extremities will be ordered and we will leave the decision about possibility of other pulmonary testing to Dr. Calixto who has seen the patient in Pulmonary consultation. Emmanuel Estrada M.D. DR: CARMELINA JOB#: [id number] CC:
--- NOTE | 2019-04-08 23:15 | History and Physical Report ---
DATE OF ADMISSION: 04/08/2019 CHIEF COMPLAINT: The patient is an 88-year-old male, who presents with a chief complaint of shortness of breath and chest pain. HISTORY OF PRESENT ILLNESS: Began one day prior to admission. Began in the morning of April 07, 2019. The patient began to experience a cough productive of a grayish sputum. The patient then developed chest pain. Chest pain is centered on the left side. There is no radiation to the jaw or to the shoulder. The patient also had increasing shortness of breath. The patient had subjective fevers and chills. The patient presented to [place] emergency room. An initial chest x-ray showed pulmonary edema consistent with congestive heart failure. A BNP was elevated to greater than 8000. The patient is admitted with shortness of breath and chest pain with acute on chronic congestive heart failure. REVIEW OF SYSTEMS: CONSTITUTIONAL: The patient denies weight loss or weight gain. The patient denies fevers or chills. HEENT: The patient denies ear or throat pain. The patient denies headache. CARDIOVASCULAR: The patient complains of left-sided chest pain as above. The patient denies palpitations. ABDOMEN: The patient denies nausea, vomiting, diarrhea, or constipation. GENITOURINARY: The patient denies dysuria or increased frequency of urination. CHEST: The patient complains of shortness of breath as above. The patient denies wheezes. ABDOMEN: The patient denies nausea, vomiting, diarrhea, or constipation. GENITOURINARY: The patient denies dysuria or increased frequency of urination. NEUROMUSCULAR: The patient denies seizures or generalized weakness. PAST MEDICAL HISTORY: Significant for: 1. Hypertension. 2. Coronary artery disease, status post 5 stents placement. 3. Status post myocardial infarction. 4. Congestive heart failure. 5. Diabetes type 2. 6. Pulmonary aspergillosis. PAST SURGICAL HISTORY: Significant for appendectomy. CURRENT MEDICATIONS: 1. Atorvastatin 40 mg p.o. at bedtime. 2. Clopidogrel 75 mg p.o. daily. 3. Dexilant 60 mg p.o. daily. 4. Uloric 40 mg p.o. daily. 5. Glimepiride 1 mg p.o. q.a.c. breakfast. 6. Losartan 50 mg p.o. daily. 7. Nebivolol 2.5 mg p.o. daily. 8. Primidone 50 mg p.o. daily. ALLERGIES: No known drug allergies. SOCIAL HISTORY: The patient is . The patient's sister is at the bedside. The patient denies tobacco use. The patient denies alcohol use. PHYSICAL EXAMINATION: VITAL SIGNS: Temperature 101.7, respirations 18, pulse 82, and blood pressure 134/85. GENERAL: The patient is a well-developed and well-nourished male, in no apparent distress. HEENT: Eyes, pupils are equal and responsive to light and accommodation. Extraocular movements are intact. NECK: Supple without lymphadenopathy. CHEST: Decreased breath sounds at bilateral bases with crackles. Otherwise, without wheezes or rales. CARDIOVASCULAR: Irregular rhythm and irregular rate. S1 and S2 are normal without murmurs, rubs, or gallops. ABDOMEN: Soft, nontender, and nondistended. Positive bowel sounds. No evidence of hepatosplenomegaly. Currently, no rebound or guarding noted. EXTREMITIES: Negative for clubbing, cyanosis, or edema. RECTAL/GENITAL: Not performed. NEUROLOGICAL: Cranial nerves II through XII are grossly intact without focal deficits. Motor strength is 5/5 bilaterally. Deep tendon reflexes are 2+ plantar. DIAGNOSTIC DATA: An EKG demonstrated atrial fibrillation at approximately 95 beats per minute. There are no acute ST changes or Q-waves noted. LABORATORY STUDIES: WBC 10.8, hemoglobin 11.1, hematocrit 31.4, and platelets 101,000. Sodium 142, potassium 3.1, chloride 103, CO2 29, BUN 20, creatinine 1.3, and glucose 119. Troponin 0.043. BNP elevated at 8608. ASSESSMENT: This is an 88-year-old male. 1. Shortness of breath. 2. Chest pain. 3. Fever. 4. Hypertension. 5. Coronary artery disease. 6. Congestive heart failure. 7. Pulmonary aspergillosis. 8. Diabetes type 2. 9. Hypercholesterolemia. TREATMENT: 1. Shortness of breath/congestive heart failure. A Cardiology consultation has been obtained with Dr. Estrada. We will follow recommendation of Cardiology. An echocardiogram is pending. Serial troponin levels will be performed. 2. Coronary artery disease. As above, a Cardiology consultation has been obtained with Dr. Emmanuel Estrada. We will follow recommendations of Cardiology. 3. Hypertension. Continue losartan as above. Continue Bystolic as above. 4. Diabetes type 2. A NovoLog sliding scale has been instituted. 5. Hypercholesteremia. Continue atorvastatin as above. Adama Lomas M.D. DR: KRYSTA JOB#: [id number] CC:
[2019-04-09] VITALS: BP 100/66
[2019-04-09 04:00] VITALS: BP 130/81
[2019-04-09] MEDS: NovoLOG Insulin Flexpen SUBQ SCH ×4 (06:30→20:53)
--- NOTE | 2019-04-09 07:10 | Pulmonology Progress Note ---
Assessment/Plan Assessment/Plan ASSESSMENT SOB Probably pneumonia CHF Atrial tachycardia CAD with history of AR, status post stenting Hypertension DM HLD Anemia Thrombocytopenia PLAN.of CARE tele Echo Serial troponin Venous duplex BB for atrial tachycardia, no A. fib as per cardio DVT prophylaxis empiric abx fup with CXR O2 PRN titrate to keep pulse ox above 90% avoid inhaled beta agonist continue Plavix and statin BS with SSI correct electrolytes as needed monitor counts case discussed and evaluated by supervising physician Subjective Allergies: Coded Allergies: No Known Allergies (Unverified , 02/23/16) Subjective pulse ox stable on O2 via NC no fevers Objective Last 24 Hour Vital Signs Date Time Temp Pulse Resp B/P (MAP) Pulse Ox O2 Delivery O2 Flow Rate FiO2 04/09/19 04:00 97.3 74 19 130/81 (97) 95 04/09/19 04:00 2.0 04/09/19 04:00 69 04/09/19 00:00 99.2 77 19 100/66 (77) 95 04/09/19 00:00 78 04/09/19 00:00 2.0 04/08/19 21:00 Nasal Cannula 2.0 04/08/19 20:00 79 04/08/19 20:00 99.2 77 19 100/66 (77) 95 04/08/19 20:00 2.0 04/08/19 20:00 99.7 78 19 138/61 (86) 96 04/08/19 16:23 75 04/08/19 16:00 99.7 81 20 130/61 (84) 95 04/08/19 16:00 2.0 04/08/19 14:16 69 22 99 Nasal Cannula 2.0 28 66 22 94 04/08/19 14:16 66 22 94 Nasal Cannula 2.0 28 04/08/19 12:50 100.0 04/08/19 12:02 101.7 82 18 134/95 (108) 95 04/08/19 12:00 2.0 04/08/19 11:50 86 04/08/19 09:00 Nasal Cannula 2.0 04/08/19 08:14 64 04/08/19 08:00 97.7 71 20 149/70 (96) 95 04/08/19 08:00 2.0 Intake and Output 04/08/19 04/09/19 18:59 06:59 Intake Total 1840.0 ml Output Total 800 ml Balance 1040.0 ml Intake Oral 1080 ml IV Total 760.0 ml Output Urine Total 800 ml # Bowel Movements 1 1 General Appearance: no acute distress HEENT: normocephalic, atraumatic, anicteric, mucous membranes moist Respiratory/Chest: lungs clear, decreased breath sounds Cardiovascular: normal rate, regular rhythm Abdomen: soft, non tender, non distended Extremities: no edema Neurologic/Psychiatric: alert, responsive Musculoskeletal: atrophy Microbiology Date/Time Source Procedure Growth Status 04/08/19 15:45 Nasopharynx - Final Complete 04/08/19 15:45 Nasopharynx - Final Complete Current Medications Medications (Trade) Dose Ordered Sig/Jyoti Route PRN Reason Start Time Stop Time Status Last Admin Dose Admin Acetaminophen (Tylenol) 650 mg Q4H PRN ORAL FEVER 04/08/19 07:00 05/08/19 06:59 04/08/19 12:20 Atorvastatin Calcium (Lipitor) 40 mg QHS ORAL 04/08/19 21:00 05/08/19 20:59 04/08/19 21:13 Azithromycin 500 mg/Dextrose 275 ml @ 275 mls/hr Q24HRS IV 04/08/19 14:00 04/14/19 14:59 04/08/19 14:58 Cefepime HCl 2 gm/ Sodium Chloride 110 ml @ 220 mls/hr DAILY IV 04/09/19 09:00 04/16/19 08:59 Clopidogrel Bisulfate (Plavix) 75 mg DAILY ORAL 04/08/19 09:00 05/08/19 08:59 04/08/19 09:12 Dextrose (Dextrose 50%) 25 ml Q30M PRN IV Hypoglycemia 04/08/19 07:00 05/08/19 06:59 Dextrose (Dextrose 50%) 50 ml Q30M PRN IV Hypoglycemia 04/08/19 07:00 05/08/19 06:59 Insulin Aspart (NovoLOG) BEFORE MEALS AND HS SUBQ 04/08/19 11:30 05/08/19 11:29 Lorazepam (Ativan 2mg/ml 1ml) 2 mg Q2H PRN IV For Anxiety 04/08/19 07:00 04/15/19 06:59 Nebivolol (Bystolic) 2.5 mg Q12HR ORAL 04/08/19 21:00 05/08/19 20:59 04/08/19 21:12 Ondansetron HCl (Zofran) 4 mg Q6H PRN IVP Nausea & Vomiting 04/08/19 07:00 05/08/19 06:59 Polyethylene Glycol (Miralax) 17 gm DAILYPRN PRN ORAL Constipation 04/08/19 07:00 05/08/19 06:59 Primidone (Mysoline) 150 mg 1200 ORAL 04/08/19 15:00 05/08/19 14:59 04/08/19 15:27 Primidone (Mysoline) 200 mg DAILY ORAL 04/09/19 09:00 05/09/19 08:59 Primidone (Mysoline) 200 mg QHS ORAL 04/08/19 21:00 05/08/19 20:59 04/08/19 21:12 Promethazine HCl/ Codeine (Phenergan with Codeine) 5 ml Q4H PRN ORAL For Cough 04/08/19 07:00 05/08/19 06:59 04/08/19 15:01 Aga Leal [employer] Apr 09, 2019 07:10
--- NOTE | 2019-04-09 07:45 | NUR ---
NURSE NOTES: Received report from Ana Laura HARTMAN. Pt in bed awake and orientedx3 and able to make need known. IV site in right wrist 22G SL patent and asymptomatic. Bed in lowest position locked. Side rails x2 up for safety. Call light within easy reach. Will continue to plan of care.
[2019-04-09] MEDS: Promethazine/Codeine 5ml UD ORAL PRN ×2 (07:56→14:11)
--- NOTE | 2019-04-09 07:59 | NUR ---
HAND-OFF: Report given to Mark Mejia RN. Pt in stable condition.
[2019-04-09 08:00] VITALS: BP 131/74
[2019-04-09] MEDS: Cefepime HCl 2 GM in NS 110 ML IV SCH (09:28)
[2019-04-09] MEDS: Bystolic 2.5mg Tab ORAL SCH ×2 (09:28→20:52)
[2019-04-09 09:59] LABS: HEMATOCRIT 30.4 % (42.0-52.0); HEMOGLOBIN 10.4 G/DL (14.2-18.0); MEAN CORPUSCULAR VOLUME 89 FL (80-99); PLATELET COUNT 85 K/UL (150-450); RED BLOOD COUNT 3.42 M/UL (4.70-6.10); RED CELL DISTRIBUTION WIDTH 12.7 % (11.6-14.8); WHITE BLOOD COUNT 8.5 K/UL (4.8-10.8)
[2019-04-09 10:12] LABS: ALANINE AMINOTRANSFERASE 17 U/L (12-78); ALBUMIN 2.6 G/DL (3.4-5.0); ALBUMIN/GLOBULIN RATIO 0.6 (1.0-2.7); ALKALINE PHOSPHATASE 116 U/L (46-116); ANION GAP 7 mmol/L (5-15); ASPARTATE AMINO TRANSFERASE 18 U/L (15-37); BILIRUBIN,TOTAL 0.5 MG/DL (0.2-1.0); BLOOD UREA NITROGEN 28 mg/dL (7-18); CALCIUM 8.9 MG/DL (8.5-10.1); CARBON DIOXIDE 31 MMOL/L (21-32); CHLORIDE 101 MMOL/L (98-107); CREATININE 1.2 MG/DL (0.55-1.30); POTASSIUM 3.1 MMOL/L (3.5-5.1); SODIUM 139 MMOL/L (136-145)
--- NOTE | 2019-04-09 10:30 | Diagnostic Imaging Report ---
EXAM: XR Chest, 1 View CLINICAL HISTORY: DYSPNEA TECHNIQUE: Frontal view of the chest. COMPARISON: Chest x-ray 04/08/19 FINDINGS: Lungs: Worsening interstitial and airspace opacities bilaterally. May be a developing consolidation peripherally in the right upper lobe and left lower lobe. Pleural space: Unremarkable. No pneumothorax. Heart: Unremarkable. No cardiomegaly. Mediastinum: Unremarkable. Bones/joints: Mild degenerative changes of the spine. IMPRESSION: Worsening interstitial and airspace opacities bilaterally. May be a developing consolidation peripherally in the right upper lobe and left lower lobe.
[2019-04-09 12:00] VITALS: BP 140/64
--- NOTE | 2019-04-09 12:09 | Diagnostic Imaging Report ---
EXAM: US Duplex Bilateral Lower Extremities Veins CLINICAL HISTORY: SOB TECHNIQUE: Real-time duplex ultrasound scan of the bilateral lower extremity veins integrating B-mode two-dimensional vascular structure, Doppler spectral analysis, color flow Doppler imaging and compression. COMPARISON: No relevant prior studies available. FINDINGS: Right deep veins: Unremarkable. No DVT in the right common femoral, femoral, proximal deep femoral or popliteal veins. The veins demonstrate normal color flow, are normally compressible, with normal phasic flow and/or augmentation response. Right superficial veins: Unremarkable. No thrombus in the visualized right great saphenous vein. Left deep veins: Unremarkable. No DVT in the left common femoral, femoral, proximal deep femoral or popliteal veins. The veins demonstrate normal color flow, are normally compressible, with normal phasic flow and/or augmentation response. Left superficial veins: Unremarkable. No thrombus in the visualized left great saphenous vein. Soft tissues: No acute findings. No popliteal cyst. IMPRESSION: Normal bilateral lower extremity duplex venous ultrasound.
--- NOTE | 2019-04-09 13:46 | Internal Med Progress Note ---
Subjective Date of Service: Apr 09, 2019 Physician Name CesiliaAdama Attending Physician Ham Phillips MD Current Medications Medications (Trade) Dose Ordered Sig/Jyoti Route PRN Reason Start Time Stop Time Status Last Admin Dose Admin Acetaminophen (Tylenol) 650 mg Q4H PRN ORAL FEVER 04/08/19 07:00 05/08/19 06:59 04/08/19 12:20 Atorvastatin Calcium (Lipitor) 40 mg QHS ORAL 04/08/19 21:00 05/08/19 20:59 04/08/19 21:13 Azithromycin 500 mg/Dextrose 275 ml @ 275 mls/hr Q24HRS IV 04/08/19 14:00 04/14/19 14:59 04/08/19 14:58 Cefepime HCl 2 gm/ Sodium Chloride 110 ml @ 220 mls/hr DAILY IV 04/09/19 09:00 04/16/19 08:59 04/09/19 09:28 Clopidogrel Bisulfate (Plavix) 75 mg DAILY ORAL 04/08/19 09:00 05/08/19 08:59 04/09/19 09:28 Dextrose (Dextrose 50%) 25 ml Q30M PRN IV Hypoglycemia 04/08/19 07:00 05/08/19 06:59 Dextrose (Dextrose 50%) 50 ml Q30M PRN IV Hypoglycemia 04/08/19 07:00 05/08/19 06:59 Insulin Aspart (NovoLOG) BEFORE MEALS AND HS SUBQ 04/08/19 11:30 05/08/19 11:29 Lorazepam (Ativan 2mg/ml 1ml) 2 mg Q2H PRN IV For Anxiety 04/08/19 07:00 04/15/19 06:59 Nebivolol (Bystolic) 2.5 mg Q12HR ORAL 04/08/19 21:00 05/08/19 20:59 04/09/19 09:28 Ondansetron HCl (Zofran) 4 mg Q6H PRN IVP Nausea & Vomiting 04/08/19 07:00 05/08/19 06:59 Polyethylene Glycol (Miralax) 17 gm DAILYPRN PRN ORAL Constipation 04/08/19 07:00 05/08/19 06:59 Potassium Chloride (K-Dur) 40 meq ONCE ORAL 04/09/19 13:00 2/29/20 14:00 04/09/19 13:18 Primidone (Mysoline) 150 mg 1200 ORAL 04/08/19 15:00 05/08/19 14:59 04/09/19 13:18 Primidone (Mysoline) 200 mg DAILY ORAL 04/09/19 09:00 05/09/19 08:59 04/09/19 09:30 Primidone (Mysoline) 200 mg QHS ORAL 04/08/19 21:00 05/08/19 20:59 04/08/19 21:12 Promethazine HCl/ Codeine (Phenergan with Codeine) 5 ml Q4H PRN ORAL For Cough 04/08/19 07:00 05/08/19 06:59 04/09/19 07:56 Allergies: Coded Allergies: No Known Allergies (Unverified , 02/23/16) ROS Limited/Unobtainable: No Constitutional: Reports: no symptoms HEENT: Reports: no symptoms Cardiovascular: Reports: chest pain Respiratory: Reports: shortness of breath Gastrointestinal/Abdominal: Reports: no symptoms Genitourinary: Reports: no symptoms Neurologic/Psychiatric: Reports: no symptoms Subjective 88 YO M admitted with shortness of breath and fever. Now CHF. Cover for Int Med-DR Phillips Objective Last Vital Signs Date Time Temp Pulse Resp B/P (MAP) Pulse Ox O2 Delivery O2 Flow Rate FiO2 04/09/19 12:00 97.9 73 20 140/64 (89) 96 04/09/19 12:00 2.0 04/09/19 09:00 Nasal Cannula 04/08/19 14:16 28 Laboratory Tests Test 04/09/19 09:10 White Blood Count 8.5 K/UL (4.8-10.8) Red Blood Count 3.42 M/UL (4.70-6.10) L Hemoglobin 10.4 G/DL (14.2-18.0) L Hematocrit 30.4 % (42.0-52.0) L Mean Corpuscular Volume 89 FL (80-99) Mean Corpuscular Hemoglobin 30.3 PG (27.0-31.0) Mean Corpuscular Hemoglobin Concent 34.1 G/DL (32.0-36.0) Red Cell Distribution Width 12.7 % (11.6-14.8) Platelet Count 85 K/UL (150-450) L Mean Platelet Volume 6.7 FL (6.5-10.1) Neutrophils (%) (Auto) % (45.0-75.0) Lymphocytes (%) (Auto) % (20.0-45.0) Monocytes (%) (Auto) % (1.0-10.0) Eosinophils (%) (Auto) % (0.0-3.0) Basophils (%) (Auto) % (0.0-2.0) Differential Total Cells Counted 100 Neutrophils % (Manual) 81 % (45-75) H Lymphocytes % (Manual) 9 % (20-45) L Monocytes % (Manual) 8 % (1-10) Eosinophils % (Manual) 1 % (0-3) Basophils % (Manual) 1 % (0-2) Band Neutrophils 0 % (0-8) Platelet Estimate Decreased L Platelet Morphology Normal Hypochromasia 1+ Anisocytosis 1+ Sodium Level 139 MMOL/L (136-145) Potassium Level 3.1 MMOL/L (3.5-5.1) L Chloride Level 101 MMOL/L (98-107) Carbon Dioxide Level 31 MMOL/L (21-32) Anion Gap 7 mmol/L (5-15) Blood Urea Nitrogen 28 mg/dL (7-18) H Creatinine 1.2 MG/DL (0.55-1.30) Estimat Glomerular Filtration Rate 57.0 mL/min (>60) Glucose Level 140 MG/DL (74-106) H Calcium Level 8.9 MG/DL (8.5-10.1) Phosphorus Level 3.0 MG/DL (2.5-4.9) Magnesium Level 1.8 MG/DL (1.8-2.4) Total Bilirubin 0.5 MG/DL (0.2-1.0) Aspartate Amino Transf (AST/SGOT) 18 U/L (15-37) Alanine Aminotransferase (ALT/SGPT) 17 U/L (12-78) Alkaline Phosphatase 116 U/L (46-116) Troponin I 0.090 ng/mL (0.000-0.056) Pro-B-Type Natriuretic Peptide 87211 pg/mL (0-125) H Total Protein 6.6 G/DL (6.4-8.2) Albumin 2.6 G/DL (3.4-5.0) L Globulin 4.0 g/dL Albumin/Globulin Ratio 0.6 (1.0-2.7) L Microbiology Date/Time Source Procedure Growth Status 04/08/19 15:45 Nasopharynx - Final Complete 04/08/19 15:45 Nasopharynx - Final Complete 04/08/19 09:30 Sputum Gram Stain - Final Resulted 04/08/19 09:30 Sputum Sputum Culture Pending Resulted Intake and Output 04/08/19 04/09/19 19:00 07:00 Intake Total 1840.0 ml 400 ml Output Total 800 ml Balance 1040.0 ml 400 ml Intake Oral 1080 ml 400 ml IV Total 760.0 ml Output Urine Total 800 ml # Voids 2 # Bowel Movements 1 1 Objective PHYSICAL EXAMINATION: ture 101.7, respirations 18, pulse 82, and blood pressure 134/85. GENERAL: The patient is a well-developed and well-nourished male, in no apparent distress. HEENT: Eyes, pupils are equal and responsive to light and accommodation. Extraocular movements are intact. NECK: Supple without lymphadenopathy. CHEST: Decreased breath sounds at bilateral bases with crackles. Otherwise, without wheezes or rales. CARDIOVASCULAR: Irregular rhythm and irregular rate. S1 and S2 are normal without murmurs, rubs, or gallops. ABDOMEN: Soft, nontender, and nondistended. Positive bowel sounds. No evidence of hepatosplenomegaly. Currently, no rebound or guarding noted. EXTREMITIES: Negative for clubbing, cyanosis, or edema. RECTAL/GENITAL: Not performed. NEUROLOGICAL: Cranial nerves II through XII are grossly intact without focal deficits. Motor strength is 5/5 bilaterally. Deep tendon reflexes are 2+ plantar. Assessment/Plan Assessment/Plan ASSESSMENT: This is an 88-year-old male. 1. Shortness of breath. 2. Chest pain. 3. Fever. 4. Hypertension. 5. Coronary artery disease. 6. Congestive heart failure. 7. Pulmonary aspergillosis. 8. Diabetes type 2. 9. Hypercholesterolemia. TREATMENT: 1. Shortness of breath/congestive heart failure. A Cardiology consultation has been obtained with Dr. Estrada. We will follow recommendation of Cardiology. An echocardiogram LVEF=55-60%. Serial troponin levels will be performed. 2. Coronary artery disease. As above, a Cardiology consultation has been obtained with Dr. Emmanuel Estrada. We will follow recommendations of Cardiology. 3. Hypertension. Continue losartan as above. Continue Bystolic as above. 4. Diabetes type 2. A NovoLog sliding scale has been instituted. 5. Hypercholesteremia. Continue atorvastatin as above. Adama Lomas MD Apr 09, 2019 13:46
[2019-04-09] MEDS: Azithromycin 500 MG in D5W 275 ML IV SCH (14:31)
--- NOTE | 2019-04-09 15:24 | Infectious Diseases Prog Note ---
Assessment/Plan Assessment/Plan ASSESSMENT: The patient is an 88-year-old male with, 1. Community-acquired pneumonia. -influenza sc neg -sp cx p - CXR: Worsening interstitial and airspace opacities bilaterally. May be a developing consolidation peripherally in the right upper lobe and left lower lobe. 2. Fever; improving 3. Normal white blood cells. Hypertension. Diabetes. Anemia. PLAN: 1. We will continue the patient on IV cefepime and Zithromax #2 -04/08 SP vancomycin #1 2. Monitor cultures (blood, sputum, urine). 3. legionella ag urine 4. Monitor CBC. 5. Monitor BMP. 6. Monitor chest x-ray. 7. Based on the patient's clinical course and laboratories, we will do further recommendations. Thank you, Dr. Calixto and Dr. Phillips, for allowing me to participate in the care of this patient. I will follow the patient with you during this hospitalization. Subjective Allergies: Coded Allergies: No Known Allergies (Unverified , 02/23/16) Subjective afebrile >24hrs no leukocytosis\ at 2l NC Objective Vital Signs Last 24 Hour Vital Signs Date Time Temp Pulse Resp B/P (MAP) Pulse Ox O2 Delivery O2 Flow Rate FiO2 04/09/19 12:00 70 04/09/19 12:00 97.9 73 20 140/64 (89) 96 04/09/19 12:00 2.0 04/09/19 09:00 Nasal Cannula 2.0 04/09/19 08:00 2.0 04/09/19 08:00 75 04/09/19 08:00 97.7 81 20 131/74 (93) 95 04/09/19 04:00 97.3 74 19 130/81 (97) 95 04/09/19 04:00 2.0 04/09/19 04:00 69 04/09/19 00:00 99.2 77 19 100/66 (77) 95 04/09/19 00:00 78 04/09/19 00:00 2.0 04/08/19 21:00 Nasal Cannula 2.0 04/08/19 20:00 79 04/08/19 20:00 99.2 77 19 100/66 (77) 95 04/08/19 20:00 2.0 2/28/20 20:00 99.7 78 19 138/61 (86) 96 04/08/19 16:23 75 04/08/19 16:00 99.7 81 20 130/61 (84) 95 04/08/19 16:00 2.0 Height (Feet): 5 Height (Inches): 11.00 Weight (Pounds): 187 Objective HEENT: No pale conjunctivae. No icterus. NECK: No lymphadenopathy. CHEST: Coarse breathing sounds. Mild crackles at the base of both lungs. HEART: S1, S2. ABDOMEN: Soft and nontender. EXTREMITY: No cyanosis. NEUROLOGIC: Awake and alert. Microbiology Date/Time Source Procedure Growth Status 04/08/19 15:45 Nasopharynx - Final Complete 04/08/19 15:45 Nasopharynx - Final Complete 04/08/19 09:30 Sputum Gram Stain - Final Resulted 04/08/19 09:30 Sputum Sputum Culture Pending Resulted Laboratory Tests Test 04/09/19 09:10 White Blood Count 8.5 K/UL (4.8-10.8) Red Blood Count 3.42 M/UL (4.70-6.10) L Hemoglobin 10.4 G/DL (14.2-18.0) L Hematocrit 30.4 % (42.0-52.0) L Mean Corpuscular Volume 89 FL (80-99) Mean Corpuscular Hemoglobin 30.3 PG (27.0-31.0) Mean Corpuscular Hemoglobin Concent 34.1 G/DL (32.0-36.0) Red Cell Distribution Width 12.7 % (11.6-14.8) Platelet Count 85 K/UL (150-450) L Mean Platelet Volume 6.7 FL (6.5-10.1) Neutrophils (%) (Auto) % (45.0-75.0) Lymphocytes (%) (Auto) % (20.0-45.0) Monocytes (%) (Auto) % (1.0-10.0) Eosinophils (%) (Auto) % (0.0-3.0) Basophils (%) (Auto) % (0.0-2.0) Differential Total Cells Counted 100 Neutrophils % (Manual) 81 % (45-75) H Lymphocytes % (Manual) 9 % (20-45) L Monocytes % (Manual) 8 % (1-10) Eosinophils % (Manual) 1 % (0-3) Basophils % (Manual) 1 % (0-2) Band Neutrophils 0 % (0-8) Platelet Estimate Decreased L Platelet Morphology Normal Hypochromasia 1+ Anisocytosis 1+ Sodium Level 139 MMOL/L (136-145) Potassium Level 3.1 MMOL/L (3.5-5.1) L Chloride Level 101 MMOL/L (98-107) Carbon Dioxide Level 31 MMOL/L (21-32) Anion Gap 7 mmol/L (5-15) Blood Urea Nitrogen 28 mg/dL (7-18) H Creatinine 1.2 MG/DL (0.55-1.30) Estimat Glomerular Filtration Rate 57.0 mL/min (>60) Glucose Level 140 MG/DL (74-106) H Calcium Level 8.9 MG/DL (8.5-10.1) Phosphorus Level 3.0 MG/DL (2.5-4.9) Magnesium Level 1.8 MG/DL (1.8-2.4) Total Bilirubin 0.5 MG/DL (0.2-1.0) Aspartate Amino Transf (AST/SGOT) 18 U/L (15-37) Alanine Aminotransferase (ALT/SGPT) 17 U/L (12-78) Alkaline Phosphatase 116 U/L (46-116) Troponin I 0.090 ng/mL (0.000-0.056) Pro-B-Type Natriuretic Peptide 62148 pg/mL (0-125) H Total Protein 6.6 G/DL (6.4-8.2) Albumin 2.6 G/DL (3.4-5.0) L Globulin 4.0 g/dL Albumin/Globulin Ratio 0.6 (1.0-2.7) L Current Medications Medications (Trade) Dose Ordered Sig/Jyoti Route PRN Reason Start Time Stop Time Status Last Admin Dose Admin Acetaminophen (Tylenol) 650 mg Q4H PRN ORAL FEVER 04/08/19 07:00 05/08/19 06:59 04/08/19 12:20 Atorvastatin Calcium (Lipitor) 40 mg QHS ORAL 04/08/19 21:00 05/08/19 20:59 04/08/19 21:13 Azithromycin 500 mg/Dextrose 275 ml @ 275 mls/hr Q24HRS IV 04/08/19 14:00 04/14/19 14:59 04/09/19 14:31 Cefepime HCl 2 gm/ Sodium Chloride 110 ml @ 220 mls/hr DAILY IV 04/09/19 09:00 04/16/19 08:59 04/09/19 09:28 Clopidogrel Bisulfate (Plavix) 75 mg DAILY ORAL 04/08/19 09:00 05/08/19 08:59 04/09/19 09:28 Dextrose (Dextrose 50%) 25 ml Q30M PRN IV Hypoglycemia 04/08/19 07:00 05/08/19 06:59 Dextrose (Dextrose 50%) 50 ml Q30M PRN IV Hypoglycemia 04/08/19 07:00 05/08/19 06:59 Insulin Aspart (NovoLOG) BEFORE MEALS AND HS SUBQ 04/08/19 11:30 05/08/19 11:29 Lorazepam (Ativan 2mg/ml 1ml) 2 mg Q2H PRN IV For Anxiety 04/08/19 07:00 04/15/19 06:59 Nebivolol (Bystolic) 2.5 mg Q12HR ORAL 04/08/19 21:00 05/08/19 20:59 04/09/19 09:28 Ondansetron HCl (Zofran) 4 mg Q6H PRN IVP Nausea & Vomiting 04/08/19 07:00 05/08/19 06:59 Polyethylene Glycol (Miralax) 17 gm DAILYPRN PRN ORAL Constipation 04/08/19 07:00 05/08/19 06:59 Primidone (Mysoline) 150 mg 1200 ORAL 04/08/19 15:00 05/08/19 14:59 04/09/19 13:18 Primidone (Mysoline) 200 mg DAILY ORAL 04/09/19 09:00 05/09/19 08:59 04/09/19 09:30 Primidone (Mysoline) 200 mg QHS ORAL 04/08/19 21:00 05/08/19 20:59 04/08/19 21:12 Promethazine HCl/ Codeine (Phenergan with Codeine) 5 ml Q4H PRN ORAL For Cough 04/08/19 07:00 05/08/19 06:59 04/09/19 14:11 Kathy Lopez M.D. Apr 09, 2019 15:24
[2019-04-09 15:40] VITALS: BP 160/82
[2019-04-09] MEDS: Miralax 17gm pkt ORAL PRN (16:10)
--- NOTE | 2019-04-09 18:42 | Cardiology Progress Note ---
Assessment/Plan Assessment/Plan New oncet of respiratory distress, suspect that he has bronchitis, HIS CXR was interpreted as pulmonary edema. he is treated for pneumoia will give a trial of diuretics, and repeat eval tomorrow Subjective Subjective The patient has a lot of wheezing and some orthopnea he denies chest pain Objective Last 24 Hour Vital Signs Date Time Temp Pulse Resp B/P (MAP) Pulse Ox O2 Delivery O2 Flow Rate FiO2 04/09/19 16:00 81 04/09/19 15:57 2.0 04/09/19 15:40 98.1 85 20 160/82 (108) 97 04/09/19 12:00 70 04/09/19 12:00 97.9 73 20 140/64 (89) 96 04/09/19 12:00 2.0 04/09/19 09:00 Nasal Cannula 2.0 04/09/19 08:00 2.0 04/09/19 08:00 75 04/09/19 08:00 97.7 81 20 131/74 (93) 95 04/09/19 04:00 97.3 74 19 130/81 (97) 95 04/09/19 04:00 2.0 04/09/19 04:00 69 04/09/19 00:00 99.2 77 19 100/66 (77) 95 04/09/19 00:00 78 04/09/19 00:00 2.0 04/08/19 21:00 Nasal Cannula 2.0 04/08/19 20:00 79 04/08/19 20:00 99.2 77 19 100/66 (77) 95 04/08/19 20:00 2.0 04/08/19 20:00 99.7 78 19 138/61 (86) 96 General Appearance: moderate distress EENT: PERRL/EOMI Neck: no JVD Rhythm: NSR Cardiovascular: regular rhythm, other - two episodes of svt Respiratory/Chest: crackles/rales Abdomen: non tender Extremities: moderate edema Intake and Output 04/08/19 04/09/19 19:00 07:00 Intake Total 1840.0 ml 400 ml Output Total 800 ml Balance 1040.0 ml 400 ml Intake Oral 1080 ml 400 ml IV Total 760.0 ml Output Urine Total 800 ml # Voids 2 # Bowel Movements 1 1 Laboratory Tests Test 04/09/19 09:10 White Blood Count 8.5 K/UL (4.8-10.8) Red Blood Count 3.42 M/UL (4.70-6.10) L Hemoglobin 10.4 G/DL (14.2-18.0) L Hematocrit 30.4 % (42.0-52.0) L Mean Corpuscular Volume 89 FL (80-99) Mean Corpuscular Hemoglobin 30.3 PG (27.0-31.0) Mean Corpuscular Hemoglobin Concent 34.1 G/DL (32.0-36.0) Red Cell Distribution Width 12.7 % (11.6-14.8) Platelet Count 85 K/UL (150-450) L Mean Platelet Volume 6.7 FL (6.5-10.1) Neutrophils (%) (Auto) % (45.0-75.0) Lymphocytes (%) (Auto) % (20.0-45.0) Monocytes (%) (Auto) % (1.0-10.0) Eosinophils (%) (Auto) % (0.0-3.0) Basophils (%) (Auto) % (0.0-2.0) Differential Total Cells Counted 100 Neutrophils % (Manual) 81 % (45-75) H Lymphocytes % (Manual) 9 % (20-45) L Monocytes % (Manual) 8 % (1-10) Eosinophils % (Manual) 1 % (0-3) Basophils % (Manual) 1 % (0-2) Band Neutrophils 0 % (0-8) Platelet Estimate Decreased L Platelet Morphology Normal Hypochromasia 1+ Anisocytosis 1+ Sodium Level 139 MMOL/L (136-145) Potassium Level 3.1 MMOL/L (3.5-5.1) L Chloride Level 101 MMOL/L (98-107) Carbon Dioxide Level 31 MMOL/L (21-32) Anion Gap 7 mmol/L (5-15) Blood Urea Nitrogen 28 mg/dL (7-18) H Creatinine 1.2 MG/DL (0.55-1.30) Estimat Glomerular Filtration Rate 57.0 mL/min (>60) Glucose Level 140 MG/DL (74-106) H Calcium Level 8.9 MG/DL (8.5-10.1) Phosphorus Level 3.0 MG/DL (2.5-4.9) Magnesium Level 1.8 MG/DL (1.8-2.4) Total Bilirubin 0.5 MG/DL (0.2-1.0) Aspartate Amino Transf (AST/SGOT) 18 U/L (15-37) Alanine Aminotransferase (ALT/SGPT) 17 U/L (12-78) Alkaline Phosphatase 116 U/L (46-116) Troponin I 0.090 ng/mL (0.000-0.056) Pro-B-Type Natriuretic Peptide 87933 pg/mL (0-125) H Total Protein 6.6 G/DL (6.4-8.2) Albumin 2.6 G/DL (3.4-5.0) L Globulin 4.0 g/dL Albumin/Globulin Ratio 0.6 (1.0-2.7) L Microbiology Date/Time Source Procedure Growth Status 04/08/19 15:45 Nasopharynx - Final Complete 04/08/19 15:45 Nasopharynx - Final Complete 04/08/19 09:30 Sputum Gram Stain - Final Resulted 04/08/19 09:30 Sputum Sputum Culture Pending Resulted Allison Suazo MD Apr 09, 2019 18:42
[2019-04-09] MEDS ORDERED: Albuterol/Ipratropium 3ml neb HHN PRN (19:00)
--- NOTE | 2019-04-09 19:18 | NUR ---
HAND-OFF: Report given to Meño HARTMAN. Pt remains stable.
--- NOTE | 2019-04-09 19:19 | NUR ---
NURSE NOTES: Got report from Min RN. Pt in stable condition. Denies any pain. No s/s of distress or discomfort noted. Pt resting in bed comfortably. Bed in low and locked position, call light within reach, bedside table within reach. Continue to monitor.
[2019-04-09 20:00] VITALS: BP 143/82
[2019-04-09] MEDS: Atorvastatin 20mg tab ORAL SCH (20:53)
[2019-04-10] VITALS: BP 111/77
--- NOTE | 2019-04-10 | NUR ---
NURSE NOTES: Pt HR:130s. EKG done running narrow qrs tachycardia. VSS BP:112/76 HR:130 R:20 T:98 O2:95% on room air. No s/s of distress or discomfort noted. Pt denies any pain or discomfort. Dr. Phillips and Dr. Estrada. called back and gave orders. Orders placed. Continue to monitor. Addendum: 04/10/19 at 0700 by Alberto Akins RN *Dr. Phillips called back and ordered Metoprolol 25mg BID PO. Orders placed. 0400: Pt converted back to Sinus Rhythm
[2019-04-10 04:00] VITALS: BP 97/70
[2019-04-10] MEDS: NovoLOG Insulin Flexpen SUBQ SCH ×4 (06:30→21:00)
--- NOTE | 2019-04-10 07:30 | NUR ---
HAND-OFF: Report given to Denis HARTMAN.
--- NOTE | 2019-04-10 07:36 | Pulmonology Progress Note ---
Assessment/Plan Assessment/Plan ASSESSMENT SOB Probably pneumonia CHF Atrial tachycardia CAD with history of SC, status post stenting Hypertension DM HLD Anemia Thrombocytopenia MARILYN PLAN.of CARE tele Echo Serial troponin, 2 nd elevated Venous duplex negative BB for atrial tachycardia, no A. fib as per cardio DVT prophylaxis abx as per ID recs SCX +Staph, Haemophilus , BCX NGTD fup with CXR in am O2 PRN titrate to keep pulse ox above 90% avoid inhaled beta agonist continue Plavix and statin cardio started on diuretic, monitor volumes, cardiorenal parameters creat up, hold diuretic if OK with cardio BS with SSI correct electrolytes as needed monitor counts case discussed and evaluated by supervising physician Subjective Allergies: Coded Allergies: No Known Allergies (Unverified , 02/23/16) Subjective pulse ox stable on O2 via NC no fevers Objective Last 24 Hour Vital Signs Date Time Temp Pulse Resp B/P (MAP) Pulse Ox O2 Delivery O2 Flow Rate FiO2 04/10/19 04:00 127 04/10/19 04:00 2.0 04/10/19 04:00 98.5 120 18 97/70 (79) 97 04/10/19 00:00 2.0 04/10/19 00:00 98.2 100 18 111/77 (88) 95 04/10/19 00:00 135 04/09/19 21:00 Nasal Cannula 2.0 04/09/19 21:00 2.0 04/09/19 20:00 97.0 100 20 143/82 (102) 95 04/09/19 20:00 137 04/09/19 16:00 81 04/09/19 15:57 2.0 04/09/19 15:40 98.1 85 20 160/82 (108) 97 04/09/19 12:00 70 04/09/19 12:00 97.9 73 20 140/64 (89) 96 04/09/19 12:00 2.0 04/09/19 09:00 Nasal Cannula 2.0 04/09/19 08:00 2.0 04/09/19 08:00 75 04/09/19 08:00 97.7 81 20 131/74 (93) 95 Intake and Output 04/09/19 04/10/19 19:00 07:00 Intake Total 730 ml 180 ml Output Total 600 ml 550 ml Balance 130 ml -370 ml Intake Oral 730 ml 180 ml Output Urine Total 600 ml 550 ml # Voids 1 2 # Bowel Movements 2 1 Objective General Appearance: no acute distress HEENT: normocephalic, atraumatic, anicteric, mucous membranes moist Respiratory/Chest: lungs clear, decreased breath sounds Cardiovascular: normal rate, regular rhythm Abdomen: soft, non tender, non distended Extremities: no edema Neurologic/Psychiatric: alert, responsive Musculoskeletal: atrophy Microbiology Date/Time Source Procedure Growth Status 04/08/19 01:45 Blood Blood Culture - Preliminary NO GROWTH AFTER 48 HOURS Resulted 04/08/19 01:30 Blood Blood Culture - Preliminary NO GROWTH AFTER 48 HOURS Resulted 04/08/19 15:45 Nasopharynx - Final Complete 04/08/19 15:45 Nasopharynx - Final Complete 04/08/19 09:30 Sputum Gram Stain - Final Resulted 04/08/19 09:30 Sputum Sputum Culture Pending Resulted Laboratory Tests 04/09/19 09:10: White Blood Count 8.5, Red Blood Count 3.42L, Hemoglobin 10.4L, Hematocrit 30.4L , Mean Corpuscular Volume 89, Mean Corpuscular Hemoglobin 30.3, Mean Corpuscular Hemoglobin Concent 34.1, Red Cell Distribution Width 12.7, Platelet Count 85L, Mean Platelet Volume 6.7, Neutrophils (%) (Auto) , Lymphocytes (%) ( Auto) , Monocytes (%) (Auto) , Eosinophils (%) (Auto) , Basophils (%) (Auto) , Differential Total Cells Counted 100, Neutrophils % (Manual) 81H, Lymphocytes % (Manual) 9L, Monocytes % (Manual) 8, Eosinophils % (Manual) 1, Basophils % ( Manual) 1, Band Neutrophils 0, Platelet Estimate DecreasedL, Platelet Morphology Normal, Hypochromasia 1+, Anisocytosis 1+, Sodium Level 139, Potassium Level 3.1L, Chloride Level 101, Carbon Dioxide Level 31, Anion Gap 7, Blood Urea Nitrogen 28H, Creatinine 1.2, Estimat Glomerular Filtration Rate 57.0 , Glucose Level 140H, Calcium Level 8.9, Phosphorus Level 3.0, Magnesium Level 1.8, Total Bilirubin 0.5, Aspartate Amino Transf (AST/SGOT) 18, Alanine Aminotransferase (ALT/SGPT) 17, Alkaline Phosphatase 116, Troponin I 0.090H, Pro -B-Type Natriuretic Peptide [id number], Total Protein 6.6, Albumin 2.6L, Globulin 4.0, Albumin/Globulin Ratio 0.6L 04/09/19 19:30: Urine Legionella Antigen [Pending] Current Medications Medications (Trade) Dose Ordered Sig/Jyoti Route PRN Reason Start Time Stop Time Status Last Admin Dose Admin Acetaminophen (Tylenol) 650 mg Q4H PRN ORAL FEVER 04/08/19 07:00 05/08/19 06:59 04/08/19 12:20 Albuterol/ Ipratropium (Albuterol/ Ipratropium) 3 ml Q4H PRN HHN Shortness of Breath 04/09/19 19:00 04/14/19 18:59 Atorvastatin Calcium (Lipitor) 40 mg QHS ORAL 04/08/19 21:00 05/08/19 20:59 04/09/19 20:53 Azithromycin 500 mg/Dextrose 275 ml @ 275 mls/hr Q24HRS IV 04/08/19 14:00 04/14/19 14:59 04/09/19 14:31 Cefepime HCl 2 gm/ Sodium Chloride 110 ml @ 220 mls/hr DAILY IV 04/09/19 09:00 04/16/19 08:59 04/09/19 09:28 Clopidogrel Bisulfate (Plavix) 75 mg DAILY ORAL 04/08/19 09:00 05/08/19 08:59 04/09/19 09:28 Dextrose (Dextrose 50%) 25 ml Q30M PRN IV Hypoglycemia 04/08/19 07:00 05/08/19 06:59 Dextrose (Dextrose 50%) 50 ml Q30M PRN IV Hypoglycemia 04/08/19 07:00 05/08/19 06:59 Furosemide (Lasix) 40 mg DAILY IV 04/09/19 18:45 05/09/19 18:44 04/09/19 18:57 Insulin Aspart (NovoLOG) BEFORE MEALS AND HS SUBQ 04/08/19 11:30 05/08/19 11:29 Lorazepam (Ativan 2mg/ml 1ml) 2 mg Q2H PRN IV For Anxiety 04/08/19 07:00 04/15/19 06:59 Metoprolol Tartrate (Lopressor) 25 mg Q12HR ORAL 04/10/19 09:00 05/10/19 08:59 Nebivolol (Bystolic) 2.5 mg Q12HR ORAL 04/08/19 21:00 05/08/19 20:59 04/09/19 20:52 Ondansetron HCl (Zofran) 4 mg Q6H PRN IVP Nausea & Vomiting 04/08/19 07:00 05/08/19 06:59 Polyethylene Glycol (Miralax) 17 gm DAILYPRN PRN ORAL Constipation 04/08/19 07:00 05/08/19 06:59 04/09/19 16:10 Primidone (Mysoline) 150 mg 1200 ORAL 04/08/19 15:00 05/08/19 14:59 04/09/19 13:18 Primidone (Mysoline) 200 mg DAILY ORAL 04/09/19 09:00 05/09/19 08:59 04/09/19 09:30 Primidone (Mysoline) 200 mg QHS ORAL 04/08/19 21:00 05/08/19 20:59 04/09/19 20:53 Promethazine HCl/ Codeine (Phenergan with Codeine) 5 ml Q4H PRN ORAL For Cough 04/08/19 07:00 05/08/19 06:59 04/09/19 14:11 Aga Leal BEHAVIORAL HEALTH SPECIALIST Apr 10, 2019 07:36
[2019-04-10 08:00] VITALS: BP 121/66
--- NOTE | 2019-04-10 08:10 | NUR ---
NURSE NOTES: Received pt in bed, AAO x 4. On NC 2L/min. No c/o of pain/distress at this moment. Side rails x 2. Bed in the lowest, locked, and alarm on. Call light within reach. Will continue to monitor
[2019-04-10 08:25] LABS: EOSINOPHILS % (AUTO) 1.1 % (0.0-3.0); HEMATOCRIT 32.5 % (42.0-52.0); HEMOGLOBIN 11.1 G/DL (14.2-18.0); LYMPHOCYTES % (AUTO) 15.8 % (20.0-45.0); MEAN CORPUSCULAR VOLUME 90 FL (80-99); MONOCYTES % (AUTO) 9.3 % (1.0-10.0); NEUTROPHILS % (AUTO) 72.8 % (45.0-75.0); PLATELET COUNT 104 K/UL (150-450); RED BLOOD COUNT 3.63 M/UL (4.70-6.10); RED CELL DISTRIBUTION WIDTH 12.6 % (11.6-14.8); WHITE BLOOD COUNT 8.7 K/UL (4.8-10.8)
[2019-04-10 08:44] LABS: ANION GAP 9 mmol/L (5-15); BLOOD UREA NITROGEN 39 mg/dL (7-18); CALCIUM 9.1 MG/DL (8.5-10.1); CARBON DIOXIDE 33 MMOL/L (21-32); CHLORIDE 100 MMOL/L (98-107); CREATININE 1.7 MG/DL (0.55-1.30); POTASSIUM 3.6 MMOL/L (3.5-5.1); SODIUM 141 MMOL/L (136-145)
[2019-04-10] MEDS: Docusate 100mg cap ORAL SCH ×2 (08:59→17:22)
[2019-04-10] MEDS: Cefepime HCl 2 GM in NS 110 ML IV SCH (08:59)
[2019-04-10] MEDS: Bystolic 2.5mg Tab ORAL SCH (09:00)
[2019-04-10] MEDS ORDERED: Metoprolol Succinate XL 50mg tab ORAL SCH (09:00)
[2019-04-10] MEDS: Promethazine/Codeine 5ml UD ORAL PRN (09:10)
[2019-04-10 12:00] VITALS: BP 134/59
--- NOTE | 2019-04-10 12:44 | Internal Med Progress Note ---
Subjective Date of Service: Apr 10, 2019 Physician Name Adama Lomas Attending Physician Ham Phillips MD Current Medications Medications (Trade) Dose Ordered Sig/Jyoti Route PRN Reason Start Time Stop Time Status Last Admin Dose Admin Acetaminophen (Tylenol) 650 mg Q4H PRN ORAL FEVER 04/08/19 07:00 05/08/19 06:59 04/08/19 12:20 Albuterol/ Ipratropium (Albuterol/ Ipratropium) 3 ml Q4H PRN HHN Shortness of Breath 04/09/19 19:00 04/14/19 18:59 Atorvastatin Calcium (Lipitor) 40 mg QHS ORAL 04/08/19 21:00 05/08/19 20:59 04/09/19 20:53 Azithromycin 500 mg/Dextrose 275 ml @ 275 mls/hr Q24HRS IV 04/08/19 14:00 04/14/19 14:59 04/09/19 14:31 Cefepime HCl 2 gm/ Sodium Chloride 110 ml @ 220 mls/hr DAILY IV 04/09/19 09:00 04/16/19 08:59 04/10/19 08:59 Clopidogrel Bisulfate (Plavix) 75 mg DAILY ORAL 04/08/19 09:00 05/08/19 08:59 04/10/19 08:52 Dextrose (Dextrose 50%) 25 ml Q30M PRN IV Hypoglycemia 04/08/19 07:00 05/08/19 06:59 Dextrose (Dextrose 50%) 50 ml Q30M PRN IV Hypoglycemia 04/08/19 07:00 05/08/19 06:59 Docusate Sodium (Colace) 100 mg TWICE A DAY ORAL 04/10/19 09:00 05/10/19 08:59 04/10/19 08:59 Furosemide (Lasix) 40 mg DAILY IV 04/09/19 18:45 05/09/19 18:44 04/10/19 08:51 Insulin Aspart (NovoLOG) BEFORE MEALS AND HS SUBQ 04/08/19 11:30 05/08/19 11:29 Lorazepam (Ativan 2mg/ml 1ml) 2 mg Q2H PRN IV For Anxiety 04/08/19 07:00 04/15/19 06:59 Metoprolol Tartrate (Lopressor) 25 mg Q12HR ORAL 04/10/19 09:00 05/10/19 08:59 04/10/19 08:52 Ondansetron HCl (Zofran) 4 mg Q6H PRN IVP Nausea & Vomiting 04/08/19 07:00 05/08/19 06:59 Polyethylene Glycol (Miralax) 17 gm DAILYPRN PRN ORAL Constipation 04/08/19 07:00 05/08/19 06:59 04/09/19 16:10 Primidone (Mysoline) 150 mg 1200 ORAL 04/08/19 15:00 05/08/19 14:59 04/09/19 13:18 Primidone (Mysoline) 200 mg DAILY ORAL 04/09/19 09:00 05/09/19 08:59 04/10/19 08:59 Primidone (Mysoline) 200 mg QHS ORAL 04/08/19 21:00 05/08/19 20:59 04/09/19 20:53 Promethazine HCl/ Codeine (Phenergan with Codeine) 5 ml Q4H PRN ORAL For Cough 04/08/19 07:00 05/08/19 06:59 04/10/19 09:10 Vancomycin HCl (Vanco rx to dose) 1 ea DAILY PRN MISC Per rx protocol 04/10/19 12:30 05/10/19 12:29 Vancomycin/Sodium Chloride 275 ml @ 137.5 mls/ hr ONCE ONCE IVPB 04/10/19 14:00 04/10/19 15:59 Allergies: Coded Allergies: No Known Allergies (Unverified , 02/23/16) ROS Limited/Unobtainable: No Constitutional: Reports: no symptoms HEENT: Reports: no symptoms Cardiovascular: Reports: no symptoms Respiratory: Reports: shortness of breath Gastrointestinal/Abdominal: Reports: no symptoms Genitourinary: Reports: no symptoms Neurologic/Psychiatric: Reports: no symptoms Subjective 88 YO M admitted with shortness of breath and fever. Now pneumonia. Cover for Int Bharath-DR Phillips Objective Last Vital Signs Date Time Temp Pulse Resp B/P (MAP) Pulse Ox O2 Delivery O2 Flow Rate FiO2 04/10/19 08:52 83 121/66 04/10/19 08:45 Nasal Cannula 2.0 04/10/19 08:26 96 28 04/10/19 08:00 98.0 20 Laboratory Tests Test 04/09/19 19:30 04/10/19 07:45 Urine Legionella Antigen Pending White Blood Count 8.7 K/UL (4.8-10.8) Red Blood Count 3.63 M/UL (4.70-6.10) L Hemoglobin 11.1 G/DL (14.2-18.0) L Hematocrit 32.5 % (42.0-52.0) L Mean Corpuscular Volume 90 FL (80-99) Mean Corpuscular Hemoglobin 30.6 PG (27.0-31.0) Mean Corpuscular Hemoglobin Concent 34.2 G/DL (32.0-36.0) Red Cell Distribution Width 12.6 % (11.6-14.8) Platelet Count 104 K/UL (150-450) L Mean Platelet Volume 6.3 FL (6.5-10.1) L Neutrophils (%) (Auto) 72.8 % (45.0-75.0) Lymphocytes (%) (Auto) 15.8 % (20.0-45.0) L Monocytes (%) (Auto) 9.3 % (1.0-10.0) Eosinophils (%) (Auto) 1.1 % (0.0-3.0) Basophils (%) (Auto) 1.0 % (0.0-2.0) Sodium Level 141 MMOL/L (136-145) Potassium Level 3.6 MMOL/L (3.5-5.1) Chloride Level 100 MMOL/L (98-107) Carbon Dioxide Level 33 MMOL/L (21-32) H Anion Gap 9 mmol/L (5-15) Blood Urea Nitrogen 39 mg/dL (7-18) H Creatinine 1.7 MG/DL (0.55-1.30) H Estimat Glomerular Filtration Rate 38.1 mL/min (>60) Glucose Level 129 MG/DL (74-106) H Calcium Level 9.1 MG/DL (8.5-10.1) Microbiology Date/Time Source Procedure Growth Status 04/08/19 01:45 Blood Blood Culture - Preliminary NO GROWTH AFTER 48 HOURS Resulted 04/08/19 01:30 Blood Blood Culture - Preliminary NO GROWTH AFTER 48 HOURS Resulted 04/08/19 15:45 Nasopharynx - Final Complete 04/08/19 15:45 Nasopharynx - Final Complete 04/08/19 09:30 Sputum Gram Stain - Final Resulted 04/08/19 09:30 Sputum Culture - Preliminary Staphylococcus Aureus Haemophilus Influenzae Resulted Intake and Output 04/09/19 04/10/19 19:00 07:00 Intake Total 730 ml 180 ml Output Total 600 ml 550 ml Balance 130 ml -370 ml Intake Oral 730 ml 180 ml Output Urine Total 600 ml 550 ml # Voids 1 2 # Bowel Movements 2 1 Objective PHYSICAL EXAMINATION: ture 101.7, respirations 18, pulse 82, and blood pressure 134/85. GENERAL: The patient is a well-developed and well-nourished male, in no apparent distress. HEENT: Eyes, pupils are equal and responsive to light and accommodation. Extraocular movements are intact. NECK: Supple without lymphadenopathy. CHEST: Decreased breath sounds at bilateral bases with crackles. Otherwise, without wheezes or rales. CARDIOVASCULAR: Irregular rhythm and irregular rate. S1 and S2 are normal without murmurs, rubs, or gallops. ABDOMEN: Soft, nontender, and nondistended. Positive bowel sounds. No evidence of hepatosplenomegaly. Currently, no rebound or guarding noted. EXTREMITIES: Negative for clubbing, cyanosis, or edema. RECTAL/GENITAL: Not performed. NEUROLOGICAL: Cranial nerves II through XII are grossly intact without focal deficits. Motor strength is 5/5 bilaterally. Deep tendon reflexes are 2+ plantar. Assessment/Plan Assessment/Plan ASSESSMENT: This is an 88-year-old male. 1. Shortness of breath. 2. Chest pain. 3. Fever. 4. Hypertension. 5. Coronary artery disease. 6. Congestive heart failure. 7. Pulmonary aspergillosis. 8. Diabetes type 2. 9. Hypercholesterolemia. 10. pneumonia TREATMENT: 1. Shortness of breath/congestive heart failure. A Cardiology consultation has been obtained with Dr. Estrada. We will follow recommendation of Cardiology. An echocardiogram LVEF=55-60%. Serial troponin levels will be performed. 2. Coronary artery disease. As above, a Cardiology consultation has been obtained with Dr. Emmanuel Estrada. We will follow recommendations of Cardiology. 3. Hypertension. Continue losartan as above. Continue Bystolic as above. 4. Diabetes type 2. A NovoLog sliding scale has been instituted. 5. Hypercholesteremia. Continue atorvastatin as above. 6. ABX=Cefepime and azithromycin Lomas,Adama MD Apr 10, 2019 12:44
[2019-04-10] MEDS: Azithromycin 500 MG in D5W 275 ML IV SCH (13:48)
[2019-04-10] MEDS ORDERED: Vancomycin 1.5gm/NS Premix IVPB ONE (14:00)
[2019-04-10 16:00] VITALS: BP 136/62
--- NOTE | 2019-04-10 19:17 | NUR ---
HAND-OFF: Report given to MINNIE Syed.
--- NOTE | 2019-04-10 19:24 | NUR ---
NURSE NOTES: RECEIVED PATIENT ASLEEP, EASILY AROUSABLE. NO COMPLAINTS OF PAIN AT THIS TIME. FALL PRECAUTIONS IN PLACE: CALL LIGHT, BEDSIDE TABLE AND URINAL WITHIN REACH, BED IN LOW POSITION AND BED ALARM ON. WILL CONTINUE WITH PLAN OF CARE
[2019-04-10 20:00] VITALS: BP 123/57
[2019-04-10] MEDS: Atorvastatin 20mg tab ORAL SCH (21:43)
--- NOTE | 2019-04-10 22:11 | Cardiology Progress Note ---
Assessment/Plan Assessment/Plan improved after 48 hours of treatment of bronchospasm, his rhythm is mostly stable Subjective Subjective The patient is sleeping comfortably, aroused, feels much better, still has cough , his paltpiations were mild Objective Last 24 Hour Vital Signs Date Time Temp Pulse Resp B/P (MAP) Pulse Ox O2 Delivery O2 Flow Rate FiO2 04/10/19 21:43 68 123/57 04/10/19 16:00 65 04/10/19 16:00 99.6 69 20 136/62 (86) 98 04/10/19 16:00 2.0 04/10/19 12:00 2.0 04/10/19 12:00 98.2 73 20 134/59 (84) 97 04/10/19 12:00 64 04/10/19 08:52 83 121/66 04/10/19 08:45 Nasal Cannula 2.0 04/10/19 08:40 64 04/10/19 08:26 96 Nasal Cannula 2.0 28 04/10/19 08:00 84 04/10/19 08:00 98.0 83 20 121/66 (84) 97 04/10/19 08:00 2.0 04/10/19 04:00 127 04/10/19 04:00 2.0 04/10/19 04:00 98.5 120 18 97/70 (79) 97 04/10/19 00:00 2.0 04/10/19 00:00 98.2 100 18 111/77 (88) 95 04/10/19 00:00 135 General Appearance: mild distress EENT: PERRL/EOMI Neck: non-tender, no JVD Rhythm: NSR Cardiovascular: normal rate Respiratory/Chest: expiratory wheezing Abdomen: soft Extremities: moderate edema Intake and Output 04/09/19 04/10/19 19:00 07:00 Intake Total 730 ml 180 ml Output Total 600 ml 550 ml Balance 130 ml -370 ml Intake Oral 730 ml 180 ml Output Urine Total 600 ml 550 ml # Voids 1 2 # Bowel Movements 2 1 Laboratory Tests Test 04/10/19 07:45 White Blood Count 8.7 K/UL (4.8-10.8) Red Blood Count 3.63 M/UL (4.70-6.10) L Hemoglobin 11.1 G/DL (14.2-18.0) L Hematocrit 32.5 % (42.0-52.0) L Mean Corpuscular Volume 90 FL (80-99) Mean Corpuscular Hemoglobin 30.6 PG (27.0-31.0) Mean Corpuscular Hemoglobin Concent 34.2 G/DL (32.0-36.0) Red Cell Distribution Width 12.6 % (11.6-14.8) Platelet Count 104 K/UL (150-450) L Mean Platelet Volume 6.3 FL (6.5-10.1) L Neutrophils (%) (Auto) 72.8 % (45.0-75.0) Lymphocytes (%) (Auto) 15.8 % (20.0-45.0) L Monocytes (%) (Auto) 9.3 % (1.0-10.0) Eosinophils (%) (Auto) 1.1 % (0.0-3.0) Basophils (%) (Auto) 1.0 % (0.0-2.0) Sodium Level 141 MMOL/L (136-145) Potassium Level 3.6 MMOL/L (3.5-5.1) Chloride Level 100 MMOL/L (98-107) Carbon Dioxide Level 33 MMOL/L (21-32) H Anion Gap 9 mmol/L (5-15) Blood Urea Nitrogen 39 mg/dL (7-18) H Creatinine 1.7 MG/DL (0.55-1.30) H Estimat Glomerular Filtration Rate 38.1 mL/min (>60) Glucose Level 129 MG/DL (74-106) H Calcium Level 9.1 MG/DL (8.5-10.1) Microbiology Date/Time Source Procedure Growth Status 04/08/19 01:45 Blood Blood Culture - Preliminary NO GROWTH AFTER 48 HOURS Resulted 04/08/19 01:30 Blood Blood Culture - Preliminary NO GROWTH AFTER 48 HOURS Resulted 04/08/19 15:45 Nasopharynx - Final Complete 04/08/19 15:45 Nasopharynx - Final Complete 04/08/19 09:30 Sputum Gram Stain - Final Resulted 04/08/19 09:30 Sputum Culture - Preliminary Staphylococcus Aureus Haemophilus Influenzae Resulted Allison Suazo MD Apr 10, 2019 22:11
[2019-04-11] VITALS: BP 139/72
--- NOTE | 2019-04-11 03:56 | NUR ---
NURSE NOTES: GABE FROM LAB CALLED WITH RESULTS OF SPUTUM CULTURE + FOR ISOLATED MRSA. WILL NOTIFY DR. MORRISSEY.
[2019-04-11 04:00] VITALS: BP 121/74
[2019-04-11] MEDS: Promethazine/Codeine 5ml UD ORAL PRN (05:48)
[2019-04-11] MEDS: NovoLOG Insulin Flexpen SUBQ SCH ×4 (06:16→21:00)
--- NOTE | 2019-04-11 06:49 | NUR ---
NURSE NOTES: CALLED DR. MORRISSEY AND LEFT MESSAGE WITH ANSWERING SERVICE REGARDING SPUTUM CULTURE RESULT. AWAITING MD CALL.
--- NOTE | 2019-04-11 07:25 | NUR ---
HAND-OFF: Report given to MINNIE NGO.ENDORSED TO FOLLOW UP WITH DR. MORRISSEY. PATIENT HAVING BREAKFAST, NO SIGNS OF DISTRESS NOTED.
[2019-04-11 07:58] LABS: ANION GAP 7 mmol/L (5-15); BASOPHILS % (AUTO) 0.8 % (0.0-2.0); BLOOD UREA NITROGEN 44 mg/dL (7-18); CALCIUM 9.2 MG/DL (8.5-10.1); CARBON DIOXIDE 33 MMOL/L (21-32); CHLORIDE 102 MMOL/L (98-107); CREATININE 1.5 MG/DL (0.55-1.30); EOSINOPHILS % (AUTO) 5.5 % (0.0-3.0); HEMATOCRIT 31.1 % (42.0-52.0); HEMOGLOBIN 10.9 G/DL (14.2-18.0); LYMPHOCYTES % (AUTO) 12.7 % (20.0-45.0); MEAN CORPUSCULAR VOLUME 89 FL (80-99); MONOCYTES % (AUTO) 11.1 % (1.0-10.0); NEUTROPHILS % (AUTO) 69.9 % (45.0-75.0); PLATELET COUNT 106 K/UL (150-450); POTASSIUM 3.4 MMOL/L (3.5-5.1); RED BLOOD COUNT 3.51 M/UL (4.70-6.10); RED CELL DISTRIBUTION WIDTH 12.2 % (11.6-14.8); SODIUM 142 MMOL/L (136-145)
[2019-04-11 08:00] VITALS: BP 155/89
[2019-04-11] MEDS: Cefepime HCl 2 GM in NS 110 ML IV SCH (08:58)
[2019-04-11] MEDS: Docusate 100mg cap ORAL SCH ×2 (08:59→17:15)
--- NOTE | 2019-04-11 11:00 | Infectious Diseases Prog Note ---
Assessment/Plan Assessment/Plan ASSESSMENT: The patient is an 88-year-old male with, Community-acquired pneumonia. -influenza sc neg -sp cx MSRA and H Influenza - CXR: Worsening interstitial and airspace opacities bilaterally. May be a developing consolidation peripherally in the right upper lobe and left lower lobe. Fever; improving Normal white blood cells. MARILYN Hypertension. Diabetes. Anemia. PLAN: cont IV Vanco # 2/10 and Rocephin # 1/ DC IV cefepime # 4and Zithromax # 4 -04/08 SP vancomycin #1 Monitor cultures (blood, sputum, urine). legionella ag urine Monitor CBC. Monitor BMP. Monitor chest x-ray Subjective Allergies: Coded Allergies: No Known Allergies (Unverified , 02/23/16) Subjective no more fevers cough ++ Objective Vital Signs Last 24 Hour Vital Signs Date Time Temp Pulse Resp B/P (MAP) Pulse Ox O2 Delivery O2 Flow Rate FiO2 04/11/19 09:00 Nasal Cannula 2.0 04/11/19 08:58 87 155/89 04/11/19 08:00 2.0 04/11/19 08:00 75 04/11/19 08:00 98.7 87 19 155/89 (111) 97 04/11/19 04:00 2.0 04/11/19 04:00 96.8 71 18 121/74 (90) 97 04/11/19 04:00 62 04/11/19 00:00 97.0 63 18 139/72 (94) 96 04/11/19 00:00 81 04/10/19 22:27 98 Nasal Cannula 2.0 28 04/10/19 21:43 68 123/57 04/10/19 21:00 Nasal Cannula 2.0 04/10/19 20:00 82 04/10/19 20:00 2.0 04/10/19 20:00 97.7 68 18 123/57 (79) 96 04/10/19 16:00 65 04/10/19 16:00 99.6 69 20 136/62 (86) 98 04/10/19 16:00 2.0 04/10/19 12:00 2.0 04/10/19 12:00 98.2 73 20 134/59 (84) 97 04/10/19 12:00 64 Height (Feet): 5 Height (Inches): 11.00 Weight (Pounds): 187 Respiratory/Chest: normal breath sounds Cardiovascular: regularly irregular Abdomen: no organomegaly Microbiology Date/Time Source Procedure Growth Status 04/08/19 15:45 Nasopharynx - Final Complete 04/08/19 15:45 Nasopharynx - Final Complete Laboratory Tests Test 04/11/19 06:04 White Blood Count 7.0 K/UL (4.8-10.8) Red Blood Count 3.51 M/UL (4.70-6.10) L Hemoglobin 10.9 G/DL (14.2-18.0) L Hematocrit 31.1 % (42.0-52.0) L Mean Corpuscular Volume 89 FL (80-99) Mean Corpuscular Hemoglobin 31.1 PG (27.0-31.0) H Mean Corpuscular Hemoglobin Concent 35.0 G/DL (32.0-36.0) Red Cell Distribution Width 12.2 % (11.6-14.8) Platelet Count 106 K/UL (150-450) L Mean Platelet Volume 6.8 FL (6.5-10.1) Neutrophils (%) (Auto) 69.9 % (45.0-75.0) Lymphocytes (%) (Auto) 12.7 % (20.0-45.0) L Monocytes (%) (Auto) 11.1 % (1.0-10.0) H Eosinophils (%) (Auto) 5.5 % (0.0-3.0) H Basophils (%) (Auto) 0.8 % (0.0-2.0) Sodium Level 142 MMOL/L (136-145) Potassium Level 3.4 MMOL/L (3.5-5.1) L Chloride Level 102 MMOL/L (98-107) Carbon Dioxide Level 33 MMOL/L (21-32) H Anion Gap 7 mmol/L (5-15) Blood Urea Nitrogen 44 mg/dL (7-18) H Creatinine 1.5 MG/DL (0.55-1.30) H Estimat Glomerular Filtration Rate 44.1 mL/min (>60) Glucose Level 114 MG/DL (74-106) H Calcium Level 9.2 MG/DL (8.5-10.1) Random Vancomycin Level 13.6 ug/mL Current Medications Medications (Trade) Dose Ordered Sig/Jyoti Route PRN Reason Start Time Stop Time Status Last Admin Dose Admin Acetaminophen (Tylenol) 650 mg Q4H PRN ORAL FEVER 04/08/19 07:00 05/08/19 06:59 04/08/19 12:20 Albuterol/ Ipratropium (Albuterol/ Ipratropium) 3 ml Q4H PRN HHN Shortness of Breath 04/09/19 19:00 04/14/19 18:59 Atorvastatin Calcium (Lipitor) 40 mg QHS ORAL 04/08/19 21:00 05/08/19 20:59 04/10/19 21:43 Azithromycin 500 mg/Dextrose 275 ml @ 275 mls/hr Q24HRS IV 04/08/19 14:00 04/14/19 14:59 04/10/19 13:48 Cefepime HCl 2 gm/ Sodium Chloride 110 ml @ 220 mls/hr DAILY IV 04/09/19 09:00 04/16/19 08:59 04/11/19 08:58 Clopidogrel Bisulfate (Plavix) 75 mg DAILY ORAL 04/08/19 09:00 05/08/19 08:59 04/11/19 08:59 Dextrose (Dextrose 50%) 25 ml Q30M PRN IV Hypoglycemia 04/08/19 07:00 05/08/19 06:59 Dextrose (Dextrose 50%) 50 ml Q30M PRN IV Hypoglycemia 04/08/19 07:00 05/08/19 06:59 Docusate Sodium (Colace) 100 mg TWICE A DAY ORAL 04/10/19 09:00 05/10/19 08:59 04/11/19 08:59 Furosemide (Lasix) 40 mg DAILY IV 04/09/19 18:45 05/09/19 18:44 04/11/19 08:58 Insulin Aspart (NovoLOG) BEFORE MEALS AND HS SUBQ 04/08/19 11:30 05/08/19 11:29 Lorazepam (Ativan 2mg/ml 1ml) 2 mg Q2H PRN IV For Anxiety 04/08/19 07:00 04/15/19 06:59 Metoprolol Tartrate (Lopressor) 25 mg Q12HR ORAL 04/10/19 09:00 05/10/19 08:59 04/11/19 08:58 Ondansetron HCl (Zofran) 4 mg Q6H PRN IVP Nausea & Vomiting 04/08/19 07:00 05/08/19 06:59 Polyethylene Glycol (Miralax) 17 gm DAILYPRN PRN ORAL Constipation 04/08/19 07:00 05/08/19 06:59 04/09/19 16:10 Primidone (Mysoline) 150 mg DAILY@1200 ORAL 04/11/19 12:00 05/11/19 11:59 Primidone (Mysoline) 200 mg DAILY ORAL 04/09/19 09:00 05/09/19 08:59 04/11/19 08:58 Primidone (Mysoline) 200 mg QHS ORAL 04/08/19 21:00 05/08/19 20:59 04/10/19 21:42 Promethazine HCl/ Codeine (Phenergan with Codeine) 5 ml Q4H PRN ORAL For Cough 04/08/19 07:00 05/08/19 06:59 04/11/19 05:48 Vancomycin HCl (Vanco rx to dose) 1 ea DAILY PRN MISC Per rx protocol 04/10/19 12:30 05/10/19 12:29 Vancomycin HCl 1 gm/Dextrose 275 ml @ 183.708 mls/hr ONCE ONCE IVPB 04/11/19 15:00 04/11/19 16:29 Jean-Pierre Raymond MD Apr 11, 2019 11:00
--- NOTE | 2019-04-11 11:34 | Diagnostic Imaging Report ---
Indication: Dyspnea Comparison: 04/09/2019 A single view chest radiograph was obtained. Findings: Interstitial densities and prominent vascularity noted. There is a hazy opacity at the left lung base consistent with a pleural effusion. IMPRESSION: Pulmonary vascular congestion/interstitial edema. Left pleural effusion
[2019-04-11 12:00] VITALS: BP 159/90
--- NOTE | 2019-04-11 12:13 | Pulmonology Progress Note ---
Assessment/Plan Problems: (1) MRSA pneumonia (2) Community acquired pneumonia (3) Anemia (4) Atrial fibrillation (5) Diabetes mellitus (6) CAD (coronary artery disease) (7) HTN (hypertension) Assessment/Plan continue vancomycin Ceftriaxone started f/u renal function all cxr's reviewed respiratory treatment titrate fio2 to sat of 92% Subjective ROS Limited/Unobtainable: Yes Allergies: Coded Allergies: No Known Allergies (Unverified , 02/23/16) Objective Last 24 Hour Vital Signs Date Time Temp Pulse Resp B/P (MAP) Pulse Ox O2 Delivery O2 Flow Rate FiO2 04/11/19 09:00 Nasal Cannula 2.0 04/11/19 08:58 87 155/89 04/11/19 08:00 2.0 04/11/19 08:00 75 04/11/19 08:00 98.7 87 19 155/89 (111) 97 04/11/19 04:00 2.0 04/11/19 04:00 96.8 71 18 121/74 (90) 97 04/11/19 04:00 62 04/11/19 00:00 97.0 63 18 139/72 (94) 96 04/11/19 00:00 81 04/10/19 22:27 98 Nasal Cannula 2.0 28 04/10/19 21:43 68 123/57 04/10/19 21:00 Nasal Cannula 2.0 04/10/19 20:00 82 04/10/19 20:00 2.0 04/10/19 20:00 97.7 68 18 123/57 (79) 96 04/10/19 16:00 65 04/10/19 16:00 99.6 69 20 136/62 (86) 98 04/10/19 16:00 2.0 Intake and Output 04/10/19 04/11/19 19:00 07:00 Intake Total 720 ml 120 ml Output Total 300 ml 350 ml Balance 420 ml -230 ml Intake Oral 720 ml 120 ml Output Urine Total 300 ml 350 ml # Voids 2 2 General Appearance: WD/WN, no acute distress HEENT: normocephalic, atraumatic Respiratory/Chest: crackles/rales Cardiovascular: normal peripheral pulses, normal rate Abdomen: normal bowel sounds, soft, non tender Genitourinary: normal external genitalia Skin: no rash Microbiology Date/Time Source Procedure Growth Status 04/08/19 15:45 Nasopharynx - Final Complete 04/08/19 15:45 Nasopharynx - Final Complete Laboratory Tests 04/11/19 06:04: White Blood Count 7.0, Red Blood Count 3.51L, Hemoglobin 10.9L, Hematocrit 31.1L , Mean Corpuscular Volume 89, Mean Corpuscular Hemoglobin 31.1H, Mean Corpuscular Hemoglobin Concent 35.0, Red Cell Distribution Width 12.2, Platelet Count 106L, Mean Platelet Volume 6.8, Neutrophils (%) (Auto) 69.9, Lymphocytes ( %) (Auto) 12.7L, Monocytes (%) (Auto) 11.1H, Eosinophils (%) (Auto) 5.5H, Basophils (%) (Auto) 0.8, Sodium Level 142, Potassium Level 3.4L, Chloride Level 102, Carbon Dioxide Level 33H, Anion Gap 7, Blood Urea Nitrogen 44H, Creatinine 1.5H, Estimat Glomerular Filtration Rate 44.1, Glucose Level 114H, Calcium Level 9.2, Random Vancomycin Level 13.6 Current Medications Medications (Trade) Dose Ordered Sig/Jyoti Route PRN Reason Start Time Stop Time Status Last Admin Dose Admin Acetaminophen (Tylenol) 650 mg Q4H PRN ORAL FEVER 04/08/19 07:00 05/08/19 06:59 04/08/19 12:20 Albuterol/ Ipratropium (Albuterol/ Ipratropium) 3 ml Q4H PRN HHN Shortness of Breath 04/09/19 19:00 04/14/19 18:59 Atorvastatin Calcium (Lipitor) 40 mg QHS ORAL 04/08/19 21:00 05/08/19 20:59 04/10/19 21:43 Ceftriaxone Sodium 2 gm/ Dextrose 55 ml @ 110 mls/hr Q24H IVPB 04/11/19 12:00 04/18/19 11:59 Clopidogrel Bisulfate (Plavix) 75 mg DAILY ORAL 04/08/19 09:00 05/08/19 08:59 04/11/19 08:59 Dextrose (Dextrose 50%) 25 ml Q30M PRN IV Hypoglycemia 04/08/19 07:00 05/08/19 06:59 Dextrose (Dextrose 50%) 50 ml Q30M PRN IV Hypoglycemia 04/08/19 07:00 05/08/19 06:59 Docusate Sodium (Colace) 100 mg TWICE A DAY ORAL 04/10/19 09:00 05/10/19 08:59 04/11/19 08:59 Furosemide (Lasix) 40 mg DAILY IV 04/09/19 18:45 05/09/19 18:44 04/11/19 08:58 Insulin Aspart (NovoLOG) BEFORE MEALS AND HS SUBQ 04/08/19 11:30 05/08/19 11:29 Lorazepam (Ativan 2mg/ml 1ml) 2 mg Q2H PRN IV For Anxiety 04/08/19 07:00 04/15/19 06:59 Metoprolol Tartrate (Lopressor) 25 mg Q12HR ORAL 04/10/19 09:00 05/10/19 08:59 04/11/19 08:58 Ondansetron HCl (Zofran) 4 mg Q6H PRN IVP Nausea & Vomiting 04/08/19 07:00 05/08/19 06:59 Polyethylene Glycol (Miralax) 17 gm DAILYPRN PRN ORAL Constipation 04/08/19 07:00 05/08/19 06:59 04/09/19 16:10 Primidone (Mysoline) 150 mg DAILY@1200 ORAL 04/11/19 12:00 05/11/19 11:59 Primidone (Mysoline) 200 mg DAILY ORAL 04/09/19 09:00 05/09/19 08:59 04/11/19 08:58 Primidone (Mysoline) 200 mg QHS ORAL 04/08/19 21:00 05/08/19 20:59 04/10/19 21:42 Promethazine HCl/ Codeine (Phenergan with Codeine) 5 ml Q4H PRN ORAL For Cough 04/08/19 07:00 05/08/19 06:59 04/11/19 05:48 Vancomycin HCl (Vanco rx to dose) 1 ea DAILY PRN MISC Per rx protocol 04/10/19 12:30 05/10/19 12:29 Vancomycin HCl 1 gm/Dextrose 275 ml @ 183.708 mls/hr ONCE ONCE IVPB 04/11/19 15:00 04/11/19 16:29 Lg Calixto MD Apr 11, 2019 12:13
[2019-04-11] MEDS: cefTRIAXone 2 GM in D5W 55 ML IVPB SCH (12:43)
--- NOTE | 2019-04-11 14:51 | NUR ---
CASE MANAGEMENT:REVIEW 04/11/19 SI: BILATERAL MRSA/H-INFLUENZA PNEUMONIA TROPONIN LEAK 99.1 72 19 159/90 96% ON 2L/NC H/H-10.9/31.1 PLT-106 BUN+44 CR+1.5 IS: IV VANCOMYCIN X1 IV ROCEPHIN Q24 IV LASIX QD MYSOLINE PO QD LOPRESSOR PO Q12 PLAVIX PO QD : TELEMETRY STATUS DCP: FROM HOME
[2019-04-11] MEDS ORDERED: Vancomycin 1gm/D5W 275ml IVPB ONE ×2 (15:00)
[2019-04-11 16:00] VITALS: BP 151/86
--- NOTE | 2019-04-11 19:11 | Internal Med Progress Note ---
Subjective Date of Service: Apr 11, 2019 Physician Name Adama Lomas Attending Physician Ham Phillips MD Current Medications Medications (Trade) Dose Ordered Sig/Jyoti Route PRN Reason Start Time Stop Time Status Last Admin Dose Admin Acetaminophen (Tylenol) 650 mg Q4H PRN ORAL FEVER 04/08/19 07:00 05/08/19 06:59 04/08/19 12:20 Albuterol/ Ipratropium (Albuterol/ Ipratropium) 3 ml Q4H PRN HHN Shortness of Breath 04/09/19 19:00 04/14/19 18:59 Atorvastatin Calcium (Lipitor) 40 mg QHS ORAL 04/08/19 21:00 05/08/19 20:59 04/10/19 21:43 Ceftriaxone Sodium 2 gm/ Dextrose 55 ml @ 110 mls/hr Q24H IVPB 04/11/19 12:00 04/18/19 11:59 04/11/19 12:43 Clopidogrel Bisulfate (Plavix) 75 mg DAILY ORAL 04/08/19 09:00 05/08/19 08:59 04/11/19 08:59 Dextrose (Dextrose 50%) 25 ml Q30M PRN IV Hypoglycemia 04/08/19 07:00 05/08/19 06:59 Dextrose (Dextrose 50%) 50 ml Q30M PRN IV Hypoglycemia 04/08/19 07:00 05/08/19 06:59 Docusate Sodium (Colace) 100 mg TWICE A DAY ORAL 04/10/19 09:00 05/10/19 08:59 04/11/19 17:15 Furosemide (Lasix) 40 mg DAILY IV 04/09/19 18:45 05/09/19 18:44 04/11/19 08:58 Insulin Aspart (NovoLOG) BEFORE MEALS AND HS SUBQ 04/08/19 11:30 05/08/19 11:29 Lorazepam (Ativan 2mg/ml 1ml) 2 mg Q2H PRN IV For Anxiety 04/08/19 07:00 04/15/19 06:59 Metoprolol Tartrate (Lopressor) 25 mg Q12HR ORAL 04/10/19 09:00 05/10/19 08:59 04/11/19 08:58 Ondansetron HCl (Zofran) 4 mg Q6H PRN IVP Nausea & Vomiting 04/08/19 07:00 05/08/19 06:59 Polyethylene Glycol (Miralax) 17 gm DAILYPRN PRN ORAL Constipation 04/08/19 07:00 05/08/19 06:59 04/09/19 16:10 Primidone (Mysoline) 150 mg DAILY@1200 ORAL 04/11/19 12:00 05/11/19 11:59 04/11/19 12:44 Primidone (Mysoline) 200 mg DAILY ORAL 04/09/19 09:00 05/09/19 08:59 04/11/19 08:58 Primidone (Mysoline) 200 mg QHS ORAL 04/08/19 21:00 05/08/19 20:59 04/10/19 21:42 Promethazine HCl/ Codeine (Phenergan with Codeine) 5 ml Q4H PRN ORAL For Cough 04/08/19 07:00 05/08/19 06:59 04/11/19 05:48 Vancomycin HCl (Vanco rx to dose) 1 ea DAILY PRN MISC Per rx protocol 04/10/19 12:30 05/10/19 12:29 Allergies: Coded Allergies: No Known Allergies (Unverified , 02/23/16) ROS Limited/Unobtainable: No Constitutional: Reports: no symptoms HEENT: Reports: no symptoms Cardiovascular: Reports: no symptoms Respiratory: Reports: cough, shortness of breath Gastrointestinal/Abdominal: Reports: no symptoms Genitourinary: Reports: no symptoms Neurologic/Psychiatric: Reports: no symptoms Subjective 88 YO M admitted with shortness of breath and fever. Now pneumonia. Cover for Int Bharath-DR Phillips Objective Last Vital Signs Date Time Temp Pulse Resp B/P (MAP) Pulse Ox O2 Delivery O2 Flow Rate FiO2 04/11/19 16:00 97.1 87 19 151/86 (107) 95 04/11/19 16:00 2.0 04/11/19 14:12 Nasal Cannula 28 Laboratory Tests Test 04/11/19 06:04 White Blood Count 7.0 K/UL (4.8-10.8) Red Blood Count 3.51 M/UL (4.70-6.10) L Hemoglobin 10.9 G/DL (14.2-18.0) L Hematocrit 31.1 % (42.0-52.0) L Mean Corpuscular Volume 89 FL (80-99) Mean Corpuscular Hemoglobin 31.1 PG (27.0-31.0) H Mean Corpuscular Hemoglobin Concent 35.0 G/DL (32.0-36.0) Red Cell Distribution Width 12.2 % (11.6-14.8) Platelet Count 106 K/UL (150-450) L Mean Platelet Volume 6.8 FL (6.5-10.1) Neutrophils (%) (Auto) 69.9 % (45.0-75.0) Lymphocytes (%) (Auto) 12.7 % (20.0-45.0) L Monocytes (%) (Auto) 11.1 % (1.0-10.0) H Eosinophils (%) (Auto) 5.5 % (0.0-3.0) H Basophils (%) (Auto) 0.8 % (0.0-2.0) Sodium Level 142 MMOL/L (136-145) Potassium Level 3.4 MMOL/L (3.5-5.1) L Chloride Level 102 MMOL/L (98-107) Carbon Dioxide Level 33 MMOL/L (21-32) H Anion Gap 7 mmol/L (5-15) Blood Urea Nitrogen 44 mg/dL (7-18) H Creatinine 1.5 MG/DL (0.55-1.30) H Estimat Glomerular Filtration Rate 44.1 mL/min (>60) Glucose Level 114 MG/DL (74-106) H Calcium Level 9.2 MG/DL (8.5-10.1) Random Vancomycin Level 13.6 ug/mL Intake and Output 04/10/19 04/11/19 19:00 07:00 Intake Total 720 ml 120 ml Output Total 300 ml 350 ml Balance 420 ml -230 ml Intake Oral 720 ml 120 ml Output Urine Total 300 ml 350 ml # Voids 2 2 Objective PHYSICAL EXAMINATION: ture 101.7, respirations 18, pulse 82, and blood pressure 134/85. GENERAL: The patient is a well-developed and well-nourished male, in no apparent distress. HEENT: Eyes, pupils are equal and responsive to light and accommodation. Extraocular movements are intact. NECK: Supple without lymphadenopathy. CHEST: Decreased breath sounds at bilateral bases with crackles. Otherwise, without wheezes or rales. CARDIOVASCULAR: Irregular rhythm and irregular rate. S1 and S2 are normal without murmurs, rubs, or gallops. ABDOMEN: Soft, nontender, and nondistended. Positive bowel sounds. No evidence of hepatosplenomegaly. Currently, no rebound or guarding noted. EXTREMITIES: Negative for clubbing, cyanosis, or edema. RECTAL/GENITAL: Not performed. NEUROLOGICAL: Cranial nerves II through XII are grossly intact without focal deficits. Motor strength is 5/5 bilaterally. Deep tendon reflexes are 2+ plantar. Assessment/Plan Assessment/Plan ASSESSMENT: This is an 88-year-old male. 1. Shortness of breath. 2. Chest pain. 3. Fever. 4. Hypertension. 5. Coronary artery disease. 6. Congestive heart failure. 7. Pulmonary aspergillosis. 8. Diabetes type 2. 9. Hypercholesterolemia. 10. pneumonia=H. Influenza and MRSA staph aureus TREATMENT: 1. Shortness of breath/congestive heart failure. A Cardiology consultation has been obtained with Dr. Estrada. We will follow recommendation of Cardiology. An echocardiogram LVEF=55-60%. Serial troponin levels will be performed. 2. Coronary artery disease. As above, a Cardiology consultation has been obtained with Dr. Emmanuel Estrada. We will follow recommendations of Cardiology. 3. Hypertension. Continue losartan as above. Continue Bystolic as above. 4. Diabetes type 2. A NovoLog sliding scale has been instituted. 5. Hypercholesteremia. Continue atorvastatin as above. 6. ABX=vanco and ceftriaxone; D/C Cefepime and azithromycin per ID= Dr Raymond. Pulmonary=Adama Laird MD Apr 11, 2019 19:11
--- NOTE | 2019-04-11 19:20 | NUR ---
HAND-OFF: Report given to MINNIE Cade.
--- NOTE | 2019-04-11 19:25 | NUR ---
NURSE NOTES: Patient received from Geoffrey RN alert and oriented x3 with moments of forgetfulness with no acute s/s of distress noted. On 2L NC, sitting up in bed with no acute s/s of resp distress. IV site asymptomatic and patent on L fa 22g, saline lock. Bed in lowest position, call light and belongings within reach.
[2019-04-11 20:00] VITALS: BP 159/77
[2019-04-11] MEDS: Miralax 17gm pkt ORAL PRN (21:26)
[2019-04-11] MEDS: Atorvastatin 20mg tab ORAL SCH (21:26)
[2019-04-12] VITALS: BP 149/70
[2019-04-12 04:00] VITALS: BP 146/74
[2019-04-12] MEDS: NovoLOG Insulin Flexpen SUBQ SCH ×4 (05:27→21:00)
[2019-04-12 07:12] LABS: BASOPHILS % (AUTO) 1.7 % (0.0-2.0); EOSINOPHILS % (AUTO) 4.7 % (0.0-3.0); HEMATOCRIT 31.8 % (42.0-52.0); LYMPHOCYTES % (AUTO) 12.1 % (20.0-45.0); MEAN CORPUSCULAR VOLUME 88 FL (80-99); MONOCYTES % (AUTO) 12.8 % (1.0-10.0); NEUTROPHILS % (AUTO) 68.7 % (45.0-75.0); PLATELET COUNT 102 K/UL (150-450); RED CELL DISTRIBUTION WIDTH 11.9 % (11.6-14.8); WHITE BLOOD COUNT 6.7 K/UL (4.8-10.8)
--- NOTE | 2019-04-12 07:25 | NUR ---
NURSE NOTES: pt in bed awake and alert x3. pt has no complaints of pain. 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 Call light within reach, bed is locked and lowest position, side rails up x2, bed alarm on of safety. will continue to monitor pt
[2019-04-12 07:44] LABS: ANION GAP 8 mmol/L (5-15); BLOOD UREA NITROGEN 37 mg/dL (7-18); CARBON DIOXIDE 33 MMOL/L (21-32); CHLORIDE 101 MMOL/L (98-107); CREATININE 1.3 MG/DL (0.55-1.30); POTASSIUM 2.9 MMOL/L (3.5-5.1); SODIUM 142 MMOL/L (136-145)
--- NOTE | 2019-04-12 07:56 | NUR ---
HAND-OFF: Report given to MINNIE Roque.
[2019-04-12 08:00] VITALS: BP 148/91
[2019-04-12] MEDS: Docusate 100mg cap ORAL SCH ×2 (09:51→18:22)
--- NOTE | 2019-04-12 10:30 | NUR ---
NURSE NOTES: educated and explained the benefit of Lasix to pt. but pt still refused lasix stating that it makes him urinate too much and he didn't like that.
--- NOTE | 2019-04-12 11:28 | NUR ---
NURSE NOTES: dr. gupta was notified that pt is refusing Lasix. ordered fleet enema once daily/PRN
[2019-04-12 12:00] VITALS: BP 153/64
--- NOTE | 2019-04-12 12:01 | Pulmonology Progress Note ---
Assessment/Plan Problems: (1) MRSA pneumonia (2) Community acquired pneumonia (3) Anemia (4) Atrial fibrillation (5) Diabetes mellitus (6) CAD (coronary artery disease) (7) HTN (hypertension) Assessment/Plan fleet enema for constipation. continue vancomycin Ceftriaxone started f/u renal function all cxr's reviewed respiratory treatment titrate fio2 to sat of 92% Subjective ROS Limited/Unobtainable: No Constitutional: Reports: no symptoms HEENT: Repors: no symptoms Respiratory: Reports: wheezing Gastrointestinal/Abdominal: Reports: no symptoms Allergies: Coded Allergies: No Known Allergies (Unverified , 02/23/16) Objective Last 24 Hour Vital Signs Date Time Temp Pulse Resp B/P (MAP) Pulse Ox O2 Delivery O2 Flow Rate FiO2 04/12/19 09:54 91 148/91 04/12/19 08:06 95 Nasal Cannula 2.0 28 04/12/19 08:00 98.6 91 20 148/91 (110) 96 04/12/19 04:00 98.1 75 18 146/74 (98) 96 04/12/19 04:00 2.0 04/12/19 04:00 91 04/12/19 00:00 83 04/12/19 00:00 97.4 73 16 149/70 (96) 96 04/11/19 21:26 77 159/77 04/11/19 21:00 Nasal Cannula 2.0 04/11/19 20:04 95 Nasal Cannula 2.0 28 04/11/19 20:00 2.0 04/11/19 20:00 97.7 77 19 159/77 (104) 96 04/11/19 20:00 88 04/11/19 16:00 97.1 87 19 151/86 (107) 95 04/11/19 16:00 2.0 04/11/19 16:00 80 04/11/19 14:12 95 Nasal Cannula 2.0 28 Intake and Output 04/11/19 04/12/19 19:00 07:00 Intake Total 500 ml 360 ml Output Total 1000 ml Balance -500 ml 360 ml Intake Oral 500 ml 360 ml Output Urine Total 1000 ml # Voids 5 3 # Bowel Movements 1 General Appearance: WD/WN HEENT: normocephalic, atraumatic Respiratory/Chest: chest wall non-tender, lungs clear Cardiovascular: normal peripheral pulses, normal rate Abdomen: normal bowel sounds, soft, non tender Genitourinary: normal external genitalia Extremities: no cyanosis Skin: no lesions Neurologic/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: 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 Laboratory Tests 04/12/19 06:30: White Blood Count 6.7, Red Blood Count 3.60L, Hemoglobin 11.0L, Hematocrit 31.8L , Mean Corpuscular Volume 88, Mean Corpuscular Hemoglobin 30.6, Mean Corpuscular Hemoglobin Concent 34.6, Red Cell Distribution Width 11.9, Platelet Count 102L, Mean Platelet Volume 6.7, Neutrophils (%) (Auto) 68.7, Lymphocytes ( %) (Auto) 12.1L, Monocytes (%) (Auto) 12.8H, Eosinophils (%) (Auto) 4.7H, Basophils (%) (Auto) 1.7, Sodium Level 142, Potassium Level 2.9L, Chloride Level 101, Carbon Dioxide Level 33H, Anion Gap 8, Blood Urea Nitrogen 37H, Creatinine 1.3, Estimat Glomerular Filtration Rate 52.0, Glucose Level 130H, Calcium Level 9.0 Current Medications Medications (Trade) Dose Ordered Sig/Jyoti Route PRN Reason Start Time Stop Time Status Last Admin Dose Admin Acetaminophen (Tylenol) 650 mg Q4H PRN ORAL FEVER 04/08/19 07:00 05/08/19 06:59 04/08/19 12:20 Albuterol/ Ipratropium (Albuterol/ Ipratropium) 3 ml Q4H PRN HHN Shortness of Breath 04/09/19 19:00 04/14/19 18:59 Atorvastatin Calcium (Lipitor) 40 mg QHS ORAL 04/08/19 21:00 05/08/19 20:59 04/11/19 21:26 Ceftriaxone Sodium 2 gm/ Dextrose 55 ml @ 110 mls/hr Q24H IVPB 04/11/19 12:00 04/18/19 11:59 04/11/19 12:43 Clopidogrel Bisulfate (Plavix) 75 mg DAILY ORAL 04/08/19 09:00 05/08/19 08:59 04/12/19 09:55 Dextrose (Dextrose 50%) 25 ml Q30M PRN IV Hypoglycemia 04/08/19 07:00 05/08/19 06:59 Dextrose (Dextrose 50%) 50 ml Q30M PRN IV Hypoglycemia 04/08/19 07:00 05/08/19 06:59 Docusate Sodium (Colace) 100 mg TWICE A DAY ORAL 04/10/19 09:00 05/10/19 08:59 04/12/19 09:51 Furosemide (Lasix) 40 mg DAILY IV 04/09/19 18:45 05/09/19 18:44 04/11/19 08:58 Insulin Aspart (NovoLOG) BEFORE MEALS AND HS SUBQ 04/08/19 11:30 05/08/19 11:29 Lorazepam (Ativan 2mg/ml 1ml) 2 mg Q2H PRN IV For Anxiety 04/08/19 07:00 04/15/19 06:59 Metoprolol Tartrate (Lopressor) 25 mg Q12HR ORAL 04/10/19 09:00 05/10/19 08:59 04/12/19 09:54 Ondansetron HCl (Zofran) 4 mg Q6H PRN IVP Nausea & Vomiting 04/08/19 07:00 05/08/19 06:59 Polyethylene Glycol (Miralax) 17 gm DAILYPRN PRN ORAL Constipation 04/08/19 07:00 05/08/19 06:59 04/11/19 21:26 Primidone (Mysoline) 150 mg DAILY@1200 ORAL 04/11/19 12:00 05/11/19 11:59 04/11/19 12:44 Primidone (Mysoline) 200 mg DAILY ORAL 04/09/19 09:00 05/09/19 08:59 04/12/19 09:55 Primidone (Mysoline) 200 mg QHS ORAL 04/08/19 21:00 05/08/19 20:59 04/11/19 21:26 Promethazine HCl/ Codeine (Phenergan with Codeine) 5 ml Q4H PRN ORAL For Cough 04/08/19 07:00 05/08/19 06:59 04/11/19 05:48 Vancomycin HCl (Vanco rx to dose) 1 ea DAILY PRN MISC Per rx protocol 04/10/19 12:30 05/10/19 12:29 Lg Calixto MD Apr 12, 2019 12:01
--- NOTE | 2019-04-12 13:28 | NUR ---
RD ASSESSMENT & RECOMMENDATIONS SEE CARE ACTIVITY FOR COMPLETE ASSESSMENT DAILY ESTIMATED NEEDS: Needs based on CHF, 79kg abw 25-30 kcals/kg 5870-9570 total kcals 1-1.3 g protein/kg 79-103 g total protein 20-22 mL/kg 0497-6536 total fluid mLs NUTRITION DIAGNOSIS: * Decreased sodium intake needs R/T CHF dx as evidenced by elev BNP (47544), on Lasix. CURRENT DIET:[facility] MED PO DIET RECOMMENDATIONS: [facility] MED + LOW NA ADDITIONAL RECOMMENDATIONS: * Daily standing wt monitoring: CHF dx * Monitor lytes daily w/ Lasix, replete as needed (low K) * Check A1C for eval of glycemic control : h/o DM -> A1C may be slightly depressed due to low hgb (11.1) * Daily bowel regimen: c/o constipation
--- NOTE | 2019-04-12 13:30 | NUR ---
RD ASSESSMENT & RECOMMENDATIONS SEE CARE ACTIVITY FOR COMPLETE ASSESSMENT DAILY ESTIMATED NEEDS: Needs based on CHF, 79kg abw 25-30 kcals/kg 1730-4831 total kcals 1-1.3 g protein/kg 79-103 g total protein 20-22 mL/kg 4752-6205 total fluid mLs NUTRITION DIAGNOSIS: * Decreased sodium intake needs R/T CHF dx as evidenced by elev BNP (18829), on Lasix. CURRENT DIET:[facility] MED PO DIET RECOMMENDATIONS: [facility] MED + LOW NA ADDITIONAL RECOMMENDATIONS: * Daily standing wt monitoring: CHF dx * Monitor lytes daily w/ Lasix, replete as needed (low K) * Check A1C for eval of glycemic control : h/o DM -> A1C may be slightly depressed due to low hgb (11.1) * Daily bowel regimen: c/o constipation
[2019-04-12] MEDS ORDERED: Fleet's Mineral Oil Enema RECTAL SCH (14:00)
[2019-04-12] MEDS: cefTRIAXone 2 GM in D5W 55 ML IVPB SCH (14:29)
[2019-04-12 16:00] VITALS: BP 141/65
--- NOTE | 2019-04-12 17:42 | Infectious Diseases Prog Note ---
Assessment/Plan Assessment/Plan ASSESSMENT: The patient is an 88-year-old male with, Community-acquired pneumonia. -influenza sc neg -sp cx MSRA and H Influenza - CXR: Worsening interstitial and airspace opacities bilaterally. May be a developing consolidation peripherally in the right upper lobe and left lower lobe. Fever; improving Normal white blood cells. MARILYN Hypertension. Diabetes. Anemia. PLAN: cont IV Vanco # 3/ and Rocephin # 2/ -04/11 sp IV cefepime # 4and Zithromax # 4 -04/08 SP vancomycin #1 Monitor cultures (blood). legionella ag urine Monitor CBC. Monitor BMP. Monitor chest x-ray Subjective Allergies: Coded Allergies: No Known Allergies (Unverified , 02/23/16) Subjective no new complain Objective Vital Signs Last 24 Hour Vital Signs Date Time Temp Pulse Resp B/P (MAP) Pulse Ox O2 Delivery O2 Flow Rate FiO2 04/12/19 16:00 98.6 77 20 141/65 (90) 97 04/12/19 16:00 1.0 04/12/19 12:00 2.0 04/12/19 12:00 79 04/12/19 12:00 98.4 77 20 153/64 (93) 96 04/12/19 09:54 91 148/91 04/12/19 09:00 Nasal Cannula 2.0 04/12/19 08:06 95 Nasal Cannula 2.0 28 04/12/19 08:00 98.6 91 20 148/91 (110) 96 04/12/19 08:00 2.0 04/12/19 08:00 86 04/12/19 04:00 98.1 75 18 146/74 (98) 96 04/12/19 04:00 2.0 04/12/19 04:00 91 04/12/19 00:00 83 04/12/19 00:00 97.4 73 16 149/70 (96) 96 04/11/19 21:26 77 159/77 04/11/19 21:00 Nasal Cannula 2.0 04/11/19 20:04 95 Nasal Cannula 2.0 28 04/11/19 20:00 2.0 04/11/19 20:00 97.7 77 19 159/77 (104) 96 04/11/19 20:00 88 Height (Feet): 5 Height (Inches): 11.00 Weight (Pounds): 187 HEENT: anicteric Respiratory/Chest: no respiratory distress Cardiovascular: regular rhythm Abdomen: non distended Laboratory Tests Test 04/12/19 06:30 04/12/19 13:48 White Blood Count 6.7 K/UL (4.8-10.8) Red Blood Count 3.60 M/UL (4.70-6.10) L Hemoglobin 11.0 G/DL (14.2-18.0) L Hematocrit 31.8 % (42.0-52.0) L Mean Corpuscular Volume 88 FL (80-99) Mean Corpuscular Hemoglobin 30.6 PG (27.0-31.0) Mean Corpuscular Hemoglobin Concent 34.6 G/DL (32.0-36.0) Red Cell Distribution Width 11.9 % (11.6-14.8) Platelet Count 102 K/UL (150-450) L Mean Platelet Volume 6.7 FL (6.5-10.1) Neutrophils (%) (Auto) 68.7 % (45.0-75.0) Lymphocytes (%) (Auto) 12.1 % (20.0-45.0) L Monocytes (%) (Auto) 12.8 % (1.0-10.0) H Eosinophils (%) (Auto) 4.7 % (0.0-3.0) H Basophils (%) (Auto) 1.7 % (0.0-2.0) Sodium Level 142 MMOL/L (136-145) Potassium Level 2.9 MMOL/L (3.5-5.1) L Chloride Level 101 MMOL/L (98-107) Carbon Dioxide Level 33 MMOL/L (21-32) H Anion Gap 8 mmol/L (5-15) Blood Urea Nitrogen 37 mg/dL (7-18) H Creatinine 1.3 MG/DL (0.55-1.30) Estimat Glomerular Filtration Rate 52.0 mL/min (>60) Glucose Level 130 MG/DL (74-106) H Calcium Level 9.0 MG/DL (8.5-10.1) Random Vancomycin Level 13.6 ug/mL Current Medications Medications (Trade) Dose Ordered Sig/Jyoti Route PRN Reason Start Time Stop Time Status Last Admin Dose Admin Acetaminophen (Tylenol) 650 mg Q4H PRN ORAL FEVER 04/08/19 07:00 05/08/19 06:59 04/08/19 12:20 Albuterol/ Ipratropium (Albuterol/ Ipratropium) 3 ml Q4H PRN HHN Shortness of Breath 04/09/19 19:00 04/14/19 18:59 Atorvastatin Calcium (Lipitor) 40 mg QHS ORAL 04/08/19 21:00 05/08/19 20:59 04/11/19 21:26 Ceftriaxone Sodium 2 gm/ Dextrose 55 ml @ 110 mls/hr Q24H IVPB 04/11/19 12:00 04/18/19 11:59 04/12/19 14:29 Clopidogrel Bisulfate (Plavix) 75 mg DAILY ORAL 04/08/19 09:00 05/08/19 08:59 04/12/19 09:55 Dextrose (Dextrose 50%) 25 ml Q30M PRN IV Hypoglycemia 04/08/19 07:00 05/08/19 06:59 Dextrose (Dextrose 50%) 50 ml Q30M PRN IV Hypoglycemia 04/08/19 07:00 05/08/19 06:59 Docusate Sodium (Colace) 100 mg TWICE A DAY ORAL 04/10/19 09:00 05/10/19 08:59 04/12/19 09:51 Furosemide (Lasix) 40 mg DAILY IV 04/09/19 18:45 05/09/19 18:44 04/11/19 08:58 Insulin Aspart (NovoLOG) BEFORE MEALS AND HS SUBQ 04/08/19 11:30 05/08/19 11:29 Lorazepam (Ativan 2mg/ml 1ml) 2 mg Q2H PRN IV For Anxiety 04/08/19 07:00 04/15/19 06:59 Metoprolol Tartrate (Lopressor) 25 mg Q12HR ORAL 04/10/19 09:00 05/10/19 08:59 04/12/19 09:54 Ondansetron HCl (Zofran) 4 mg Q6H PRN IVP Nausea & Vomiting 04/08/19 07:00 05/08/19 06:59 Polyethylene Glycol (Miralax) 17 gm DAILYPRN PRN ORAL Constipation 04/08/19 07:00 05/08/19 06:59 04/11/19 21:26 Primidone (Mysoline) 150 mg DAILY@1200 ORAL 04/11/19 12:00 05/11/19 11:59 04/12/19 14:29 Primidone (Mysoline) 200 mg DAILY ORAL 04/09/19 09:00 05/09/19 08:59 04/12/19 09:55 Primidone (Mysoline) 200 mg QHS ORAL 04/08/19 21:00 05/08/19 20:59 04/11/19 21:26 Promethazine HCl/ Codeine (Phenergan with Codeine) 5 ml Q4H PRN ORAL For Cough 04/08/19 07:00 05/08/19 06:59 04/11/19 05:48 Vancomycin HCl (Vanco rx to dose) 1 ea DAILY PRN MISC Per rx protocol 04/10/19 12:30 05/10/19 12:29 Vancomycin HCl 750 mg/Sodium Chloride 275 ml @ 183.333 mls/hr Q24H IVPB 04/12/19 18:00 04/17/19 17:59 Jean-Pierre Raymond MD Apr 12, 2019 17:42
--- NOTE | 2019-04-12 17:43 | Internal Med Progress Note ---
Subjective Date of Service: Apr 12, 2019 Physician Name Adama Lomas Attending Physician Ham Phillips MD Current Medications Medications (Trade) Dose Ordered Sig/Jyoti Route PRN Reason Start Time Stop Time Status Last Admin Dose Admin Acetaminophen (Tylenol) 650 mg Q4H PRN ORAL FEVER 04/08/19 07:00 05/08/19 06:59 04/08/19 12:20 Albuterol/ Ipratropium (Albuterol/ Ipratropium) 3 ml Q4H PRN HHN Shortness of Breath 04/09/19 19:00 04/14/19 18:59 Atorvastatin Calcium (Lipitor) 40 mg QHS ORAL 04/08/19 21:00 05/08/19 20:59 04/11/19 21:26 Ceftriaxone Sodium 2 gm/ Dextrose 55 ml @ 110 mls/hr Q24H IVPB 04/11/19 12:00 04/18/19 11:59 04/12/19 14:29 Clopidogrel Bisulfate (Plavix) 75 mg DAILY ORAL 04/08/19 09:00 05/08/19 08:59 04/12/19 09:55 Dextrose (Dextrose 50%) 25 ml Q30M PRN IV Hypoglycemia 04/08/19 07:00 05/08/19 06:59 Dextrose (Dextrose 50%) 50 ml Q30M PRN IV Hypoglycemia 04/08/19 07:00 05/08/19 06:59 Docusate Sodium (Colace) 100 mg TWICE A DAY ORAL 04/10/19 09:00 05/10/19 08:59 04/12/19 09:51 Furosemide (Lasix) 40 mg DAILY IV 04/09/19 18:45 05/09/19 18:44 04/11/19 08:58 Insulin Aspart (NovoLOG) BEFORE MEALS AND HS SUBQ 04/08/19 11:30 05/08/19 11:29 Lorazepam (Ativan 2mg/ml 1ml) 2 mg Q2H PRN IV For Anxiety 04/08/19 07:00 04/15/19 06:59 Metoprolol Tartrate (Lopressor) 25 mg Q12HR ORAL 04/10/19 09:00 05/10/19 08:59 04/12/19 09:54 Ondansetron HCl (Zofran) 4 mg Q6H PRN IVP Nausea & Vomiting 04/08/19 07:00 05/08/19 06:59 Polyethylene Glycol (Miralax) 17 gm DAILYPRN PRN ORAL Constipation 04/08/19 07:00 05/08/19 06:59 04/11/19 21:26 Primidone (Mysoline) 150 mg DAILY@1200 ORAL 04/11/19 12:00 05/11/19 11:59 04/12/19 14:29 Primidone (Mysoline) 200 mg DAILY ORAL 04/09/19 09:00 05/09/19 08:59 04/12/19 09:55 Primidone (Mysoline) 200 mg QHS ORAL 04/08/19 21:00 05/08/19 20:59 04/11/19 21:26 Promethazine HCl/ Codeine (Phenergan with Codeine) 5 ml Q4H PRN ORAL For Cough 04/08/19 07:00 05/08/19 06:59 04/11/19 05:48 Vancomycin HCl (Vanco rx to dose) 1 ea DAILY PRN MISC Per rx protocol 04/10/19 12:30 05/10/19 12:29 Vancomycin HCl 750 mg/Sodium Chloride 275 ml @ 183.333 mls/hr Q24H IVPB 04/12/19 18:00 04/17/19 17:59 Allergies: Coded Allergies: No Known Allergies (Unverified , 02/23/16) ROS Limited/Unobtainable: No Constitutional: Reports: no symptoms HEENT: Reports: no symptoms Cardiovascular: Reports: no symptoms Respiratory: Reports: shortness of breath Gastrointestinal/Abdominal: Reports: no symptoms Genitourinary: Reports: no symptoms Neurologic/Psychiatric: Reports: no symptoms Subjective 88 YO M admitted with shortness of breath and fever. Now pneumonia. Cover for Int Bharath-DR Phillips Objective Last Vital Signs Date Time Temp Pulse Resp B/P (MAP) Pulse Ox O2 Delivery O2 Flow Rate FiO2 04/12/19 16:00 98.6 77 20 141/65 (90) 97 04/12/19 16:00 1.0 04/12/19 09:00 Nasal Cannula 04/12/19 08:06 28 Laboratory Tests Test 04/12/19 06:30 04/12/19 13:48 White Blood Count 6.7 K/UL (4.8-10.8) Red Blood Count 3.60 M/UL (4.70-6.10) L Hemoglobin 11.0 G/DL (14.2-18.0) L Hematocrit 31.8 % (42.0-52.0) L Mean Corpuscular Volume 88 FL (80-99) Mean Corpuscular Hemoglobin 30.6 PG (27.0-31.0) Mean Corpuscular Hemoglobin Concent 34.6 G/DL (32.0-36.0) Red Cell Distribution Width 11.9 % (11.6-14.8) Platelet Count 102 K/UL (150-450) L Mean Platelet Volume 6.7 FL (6.5-10.1) Neutrophils (%) (Auto) 68.7 % (45.0-75.0) Lymphocytes (%) (Auto) 12.1 % (20.0-45.0) L Monocytes (%) (Auto) 12.8 % (1.0-10.0) H Eosinophils (%) (Auto) 4.7 % (0.0-3.0) H Basophils (%) (Auto) 1.7 % (0.0-2.0) Sodium Level 142 MMOL/L (136-145) Potassium Level 2.9 MMOL/L (3.5-5.1) L Chloride Level 101 MMOL/L (98-107) Carbon Dioxide Level 33 MMOL/L (21-32) H Anion Gap 8 mmol/L (5-15) Blood Urea Nitrogen 37 mg/dL (7-18) H Creatinine 1.3 MG/DL (0.55-1.30) Estimat Glomerular Filtration Rate 52.0 mL/min (>60) Glucose Level 130 MG/DL (74-106) H Calcium Level 9.0 MG/DL (8.5-10.1) Random Vancomycin Level 13.6 ug/mL Intake and Output 04/11/19 04/12/19 19:00 07:00 Intake Total 500 ml 360 ml Output Total 1000 ml Balance -500 ml 360 ml Intake Oral 500 ml 360 ml Output Urine Total 1000 ml # Voids 5 3 # Bowel Movements 1 Objective PHYSICAL EXAMINATION: ture 101.7, respirations 18, pulse 82, and blood pressure 134/85. GENERAL: The patient is a well-developed and well-nourished male, in no apparent distress. HEENT: Eyes, pupils are equal and responsive to light and accommodation. Extraocular movements are intact. NECK: Supple without lymphadenopathy. CHEST: Decreased breath sounds at bilateral bases with crackles. Otherwise, without wheezes or rales. CARDIOVASCULAR: Irregular rhythm and irregular rate. S1 and S2 are normal without murmurs, rubs, or gallops. ABDOMEN: Soft, nontender, and nondistended. Positive bowel sounds. No evidence of hepatosplenomegaly. Currently, no rebound or guarding noted. EXTREMITIES: Negative for clubbing, cyanosis, or edema. RECTAL/GENITAL: Not performed. NEUROLOGICAL: Cranial nerves II through XII are grossly intact without focal deficits. Motor strength is 5/5 bilaterally. Deep tendon reflexes are 2+ plantar. Assessment/Plan Assessment/Plan ASSESSMENT: This is an 88-year-old male. 1. Shortness of breath. 2. Chest pain. 3. Fever. 4. Hypertension. 5. Coronary artery disease. 6. Congestive heart failure. 7. Pulmonary aspergillosis. 8. Diabetes type 2. 9. Hypercholesterolemia. 10. pneumonia=H. Influenza and MRSA staph aureus TREATMENT: 1. Shortness of breath/congestive heart failure. A Cardiology consultation has been obtained with Dr. Estrada. We will follow recommendation of Cardiology. An echocardiogram LVEF=55-60%. Serial troponin levels will be performed. 2. Coronary artery disease. As above, a Cardiology consultation has been obtained with Dr. Emmanuel Estrada. We will follow recommendations of Cardiology. 3. Hypertension. Continue losartan as above. Continue Bystolic as above. 4. Diabetes type 2. A NovoLog sliding scale has been instituted. 5. Hypercholesteremia. Continue atorvastatin as above. 6. ABX=vanco and ceftriaxone; D/C Cefepime and azithromycin per ID= Dr Raymond. Pulmonary=Dr Calixto 7. Oral potassium suppliment Adama Lomas MD Apr 12, 2019 17:43
[2019-04-12] MEDS: Vancomycin 750 MG in NS 275 ML IVPB SCH (18:21)
--- NOTE | 2019-04-12 19:42 | NUR ---
HAND-OFF: Report given to Abril/RN, in stable condition and still needs to have a BM after enema was given.
--- NOTE | 2019-04-12 19:45 | NUR ---
NURSE NOTES: Received patient from MINNIE oRque. Patient awake, alert and talkative. Bed in lowest position. Call light within reach. Will continue to monitor.
[2019-04-12 20:00] VITALS: BP 149/90
[2019-04-12] MEDS: Atorvastatin 20mg tab ORAL SCH (21:00)
[2019-04-13] VITALS: BP 151/91
--- NOTE | 2019-04-13 01:57 | NUR ---
NURSE NOTES: Patient requested for Enema. Was given. Will continue to monitor.
[2019-04-13] MEDS: Miralax 17gm pkt ORAL PRN (02:31)
[2019-04-13 04:00] VITALS: BP 165/90
[2019-04-13] MEDS: NovoLOG Insulin Flexpen SUBQ SCH ×4 (06:07→20:56)
[2019-04-13 06:45] LABS: BASOPHILS % (AUTO) 1.6 % (0.0-2.0); EOSINOPHILS % (AUTO) 4.9 % (0.0-3.0); HEMATOCRIT 33.6 % (42.0-52.0); HEMOGLOBIN 11.7 G/DL (14.2-18.0); LYMPHOCYTES % (AUTO) 15.3 % (20.0-45.0); MEAN CORPUSCULAR VOLUME 88 FL (80-99); MONOCYTES % (AUTO) 10.6 % (1.0-10.0); NEUTROPHILS % (AUTO) 67.7 % (45.0-75.0); PLATELET COUNT 132 K/UL (150-450); RED BLOOD COUNT 3.81 M/UL (4.70-6.10); RED CELL DISTRIBUTION WIDTH 12.1 % (11.6-14.8); WHITE BLOOD COUNT 7.6 K/UL (4.8-10.8)
--- NOTE | 2019-04-13 07:06 | NUR ---
NURSE NOTES: Called and left a message with Dr. Phillips regarding patient's request to continue Amaryl 1mg. Awaiting call back.
--- NOTE | 2019-04-13 07:15 | NUR ---
HAND-OFF: Report given to MINNIE Roque. Patient stable.
[2019-04-13 07:35] LABS: ANION GAP 13 mmol/L (5-15); BLOOD UREA NITROGEN 33 mg/dL (7-18); CALCIUM 9.5 MG/DL (8.5-10.1); CARBON DIOXIDE 27 MMOL/L (21-32); CHLORIDE 105 MMOL/L (98-107); CREATININE 1.3 MG/DL (0.55-1.30); POTASSIUM 3.5 MMOL/L (3.5-5.1); SODIUM 145 MMOL/L (136-145)
[2019-04-13 08:10] VITALS: BP 142/91
--- NOTE | 2019-04-13 08:27 | NUR ---
NURSE NOTES: pt. is sitting in bed having breakfast. Pt had a big BM this morning. cardiac monitoring to be continued for pt, no cardiac or respiratory distress at this time. pt is not complaining of pain. Pt AOx3. Bed is locked and in lowest position, side rails up x2, bed alarm is on for safety. Call light is within reach. Will continue plans of care.
[2019-04-13] MEDS: Docusate 100mg cap ORAL SCH ×2 (09:24→18:00)
--- NOTE | 2019-04-13 09:56 | Infectious Diseases Prog Note ---
Assessment/Plan Assessment/Plan ASSESSMENT: The patient is an 88-year-old male with, Community-acquired pneumonia. -influenza sc neg -sp cx MSRA and H Influenza - CXR: Worsening interstitial and airspace opacities bilaterally. May be a developing consolidation peripherally in the right upper lobe and left lower lobe. Fever; improving Normal white blood cells. MARILYN Hypertension. Diabetes. Anemia. PLAN: cont IV Vanco # 4/10 and Rocephin # 3/ -04/11 sp IV cefepime # 4and Zithromax # -04/08 SP vancomycin #1 Monitor cultures (blood). legionella ag urine Monitor CBC. Monitor BMP. Monitor chest x-ray Subjective Allergies: Coded Allergies: No Known Allergies (Unverified , 02/23/16) Subjective cough is improving Objective Vital Signs Last 24 Hour Vital Signs Date Time Temp Pulse Resp B/P (MAP) Pulse Ox O2 Delivery O2 Flow Rate FiO2 04/13/19 09:24 95 142/91 04/13/19 08:10 96.8 95 20 142/91 (108) 95 04/13/19 04:00 98.1 89 21 165/90 (115) 98 04/13/19 04:00 84 04/13/19 00:00 98.1 93 19 151/91 (111) 94 04/12/19 21:03 92 149/90 04/12/19 21:00 Room Air 04/12/19 20:00 92 04/12/19 20:00 100.0 92 18 149/90 (109) 93 04/12/19 19:56 96 Nasal Cannula 2.0 28 04/12/19 19:56 85 20 96 Nasal Cannula 2.0 28 04/12/19 16:00 98.6 77 20 141/65 (90) 97 04/12/19 16:00 1.0 04/12/19 16:00 86 04/12/19 12:00 2.0 04/12/19 12:00 79 04/12/19 12:00 98.4 77 20 153/64 (93) 96 Height (Feet): 5 Height (Inches): 11.00 Weight (Pounds): 187 Respiratory/Chest: normal breath sounds Cardiovascular: regular rhythm Abdomen: no organomegaly Laboratory Tests Test 04/12/19 13:48 04/13/19 05:58 Random Vancomycin Level 13.6 ug/mL White Blood Count 7.6 K/UL (4.8-10.8) Red Blood Count 3.81 M/UL (4.70-6.10) L Hemoglobin 11.7 G/DL (14.2-18.0) L Hematocrit 33.6 % (42.0-52.0) L Mean Corpuscular Volume 88 FL (80-99) Mean Corpuscular Hemoglobin 30.7 PG (27.0-31.0) Mean Corpuscular Hemoglobin Concent 34.9 G/DL (32.0-36.0) Red Cell Distribution Width 12.1 % (11.6-14.8) Platelet Count 132 K/UL (150-450) L Mean Platelet Volume 6.4 FL (6.5-10.1) L Neutrophils (%) (Auto) 67.7 % (45.0-75.0) Lymphocytes (%) (Auto) 15.3 % (20.0-45.0) L Monocytes (%) (Auto) 10.6 % (1.0-10.0) H Eosinophils (%) (Auto) 4.9 % (0.0-3.0) H Basophils (%) (Auto) 1.6 % (0.0-2.0) Sodium Level 145 MMOL/L (136-145) Potassium Level 3.5 MMOL/L (3.5-5.1) Chloride Level 105 MMOL/L (98-107) Carbon Dioxide Level 27 MMOL/L (21-32) Anion Gap 13 mmol/L (5-15) Blood Urea Nitrogen 33 mg/dL (7-18) H Creatinine 1.3 MG/DL (0.55-1.30) Estimat Glomerular Filtration Rate 52.0 mL/min (>60) Glucose Level 143 MG/DL (74-106) H Calcium Level 9.5 MG/DL (8.5-10.1) Current Medications Medications (Trade) Dose Ordered Sig/Jyoti Route PRN Reason Start Time Stop Time Status Last Admin Dose Admin Acetaminophen (Tylenol) 650 mg Q4H PRN ORAL FEVER 04/08/19 07:00 05/08/19 06:59 04/08/19 12:20 Albuterol/ Ipratropium (Albuterol/ Ipratropium) 3 ml Q4H PRN HHN Shortness of Breath 04/09/19 19:00 04/14/19 18:59 Atorvastatin Calcium (Lipitor) 40 mg QHS ORAL 04/08/19 21:00 05/08/19 20:59 04/11/19 21:26 Ceftriaxone Sodium 2 gm/ Dextrose 55 ml @ 110 mls/hr Q24H IVPB 04/11/19 12:00 04/18/19 11:59 04/12/19 14:29 Clopidogrel Bisulfate (Plavix) 75 mg DAILY ORAL 04/08/19 09:00 05/08/19 08:59 04/13/19 09:24 Dextrose (Dextrose 50%) 25 ml Q30M PRN IV Hypoglycemia 04/08/19 07:00 05/08/19 06:59 Dextrose (Dextrose 50%) 50 ml Q30M PRN IV Hypoglycemia 04/08/19 07:00 05/08/19 06:59 Docusate Sodium (Colace) 100 mg TWICE A DAY ORAL 04/10/19 09:00 05/10/19 08:59 04/13/19 09:24 Furosemide (Lasix) 40 mg DAILY IV 04/09/19 18:45 05/09/19 18:44 04/13/19 09:24 Insulin Aspart (NovoLOG) BEFORE MEALS AND HS SUBQ 04/08/19 11:30 05/08/19 11:29 Lorazepam (Ativan 2mg/ml 1ml) 2 mg Q2H PRN IV For Anxiety 04/08/19 07:00 04/15/19 06:59 Metoprolol Tartrate (Lopressor) 25 mg Q12HR ORAL 04/10/19 09:00 05/10/19 08:59 04/13/19 09:24 Ondansetron HCl (Zofran) 4 mg Q6H PRN IVP Nausea & Vomiting 04/08/19 07:00 05/08/19 06:59 Polyethylene Glycol (Miralax) 17 gm DAILYPRN PRN ORAL Constipation 04/08/19 07:00 05/08/19 06:59 04/13/19 02:31 Potassium Chloride (K-Dur) 40 meq TWICE A DAY ORAL 04/12/19 18:00 04/14/19 17:59 04/13/19 09:23 Primidone (Mysoline) 150 mg DAILY@1200 ORAL 04/11/19 12:00 05/11/19 11:59 04/12/19 14:29 Primidone (Mysoline) 200 mg DAILY ORAL 04/09/19 09:00 05/09/19 08:59 04/13/19 09:24 Primidone (Mysoline) 200 mg QHS ORAL 04/08/19 21:00 05/08/19 20:59 04/12/19 21:01 Promethazine HCl/ Codeine (Phenergan with Codeine) 5 ml Q4H PRN ORAL For Cough 04/08/19 07:00 05/08/19 06:59 04/11/19 05:48 Vancomycin HCl (Vanco rx to dose) 1 ea DAILY PRN MISC Per rx protocol 04/10/19 12:30 05/10/19 12:29 Vancomycin HCl 750 mg/Sodium Chloride 275 ml @ 183.333 mls/hr Q24H IVPB 04/12/19 18:00 04/17/19 17:59 04/12/19 18:21 Jean-Pierre Raymond MD Apr 13, 2019 09:56
--- NOTE | 2019-04-13 09:58 | NUR ---
NURSE NOTES: Pt was on 1L O2 at 8am, took pt off from O2. Now pt is in room air O2 sat 93-94, will continue to monitor pt.
--- NOTE | 2019-04-13 11:37 | Pulmonology Progress Note ---
Assessment/Plan Problems: (1) MRSA pneumonia (2) Community acquired pneumonia (3) Anemia (4) Atrial fibrillation Assessment & Plan: sinus now with lots of PAC's and PVC's (5) Diabetes mellitus (6) CAD (coronary artery disease) (7) HTN (hypertension) Assessment/Plan fleet enema for constipation. continue vancomycin Ceftriaxone started f/u renal function all cxr's reviewed respiratory treatment titrate fio2 to sat of 92% Subjective ROS Limited/Unobtainable: No Constitutional: Reports: no symptoms HEENT: Repors: no symptoms Respiratory: Reports: no symptoms Allergies: Coded Allergies: No Known Allergies (Unverified , 02/23/16) Objective Last 24 Hour Vital Signs Date Time Temp Pulse Resp B/P (MAP) Pulse Ox O2 Delivery O2 Flow Rate FiO2 04/13/19 09:24 95 142/91 04/13/19 09:00 Nasal Cannula 2.0 04/13/19 08:10 96.8 95 20 142/91 (108) 95 04/13/19 08:00 92 04/13/19 04:00 98.1 89 21 165/90 (115) 98 04/13/19 04:00 84 04/13/19 00:00 98.1 93 19 151/91 (111) 94 04/12/19 21:03 92 149/90 04/12/19 21:00 Room Air 04/12/19 20:00 92 04/12/19 20:00 100.0 92 18 149/90 (109) 93 04/12/19 19:56 96 Nasal Cannula 2.0 28 04/12/19 19:56 85 20 96 Nasal Cannula 2.0 28 04/12/19 16:00 98.6 77 20 141/65 (90) 97 04/12/19 16:00 1.0 04/12/19 16:00 86 04/12/19 12:00 2.0 04/12/19 12:00 79 04/12/19 12:00 98.4 77 20 153/64 (93) 96 Intake and Output 04/12/19 04/13/19 18:59 06:59 Intake Total 236 ml Output Total 600 ml Balance -364 ml Intake Oral 236 ml Output Urine Total 600 ml # Voids 3 3 # Bowel Movements 3 General Appearance: WD/WN HEENT: normocephalic, atraumatic Respiratory/Chest: chest wall non-tender, lungs clear Cardiovascular: normal peripheral pulses, normal rate Abdomen: normal bowel sounds, soft, non tender, no organomegaly Neurologic/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: 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 Laboratory Tests 04/12/19 13:48: Random Vancomycin Level 13.6 04/13/19 05:58: White Blood Count 7.6, Red Blood Count 3.81L, Hemoglobin 11.7L, Hematocrit 33.6L , Mean Corpuscular Volume 88, Mean Corpuscular Hemoglobin 30.7, Mean Corpuscular Hemoglobin Concent 34.9, Red Cell Distribution Width 12.1, Platelet Count 132L, Mean Platelet Volume 6.4L, Neutrophils (%) (Auto) 67.7, Lymphocytes (%) (Auto) 15.3L, Monocytes (%) (Auto) 10.6H, Eosinophils (%) (Auto) 4.9H, Basophils (%) (Auto) 1.6, Sodium Level 145, Potassium Level 3.5, Chloride Level 105, Carbon Dioxide Level 27, Anion Gap 13, Blood Urea Nitrogen 33H, Creatinine 1.3, Estimat Glomerular Filtration Rate 52.0, Glucose Level 143H, Calcium Level 9.5 Current Medications Medications (Trade) Dose Ordered Sig/Jyoti Route PRN Reason Start Time Stop Time Status Last Admin Dose Admin Acetaminophen (Tylenol) 650 mg Q4H PRN ORAL FEVER 04/08/19 07:00 05/08/19 06:59 04/08/19 12:20 Albuterol/ Ipratropium (Albuterol/ Ipratropium) 3 ml Q4H PRN HHN Shortness of Breath 04/09/19 19:00 04/14/19 18:59 Atorvastatin Calcium (Lipitor) 40 mg QHS ORAL 04/08/19 21:00 05/08/19 20:59 04/11/19 21:26 Ceftriaxone Sodium 2 gm/ Dextrose 55 ml @ 110 mls/hr Q24H IVPB 04/11/19 12:00 04/18/19 11:59 04/12/19 14:29 Clopidogrel Bisulfate (Plavix) 75 mg DAILY ORAL 04/08/19 09:00 05/08/19 08:59 04/13/19 09:24 Dextrose (Dextrose 50%) 25 ml Q30M PRN IV Hypoglycemia 04/08/19 07:00 05/08/19 06:59 Dextrose (Dextrose 50%) 50 ml Q30M PRN IV Hypoglycemia 04/08/19 07:00 05/08/19 06:59 Docusate Sodium (Colace) 100 mg TWICE A DAY ORAL 04/10/19 09:00 05/10/19 08:59 04/13/19 09:24 Furosemide (Lasix) 40 mg DAILY IV 04/09/19 18:45 05/09/19 18:44 04/13/19 09:24 Insulin Aspart (NovoLOG) BEFORE MEALS AND HS SUBQ 04/08/19 11:30 05/08/19 11:29 Lorazepam (Ativan 2mg/ml 1ml) 2 mg Q2H PRN IV For Anxiety 04/08/19 07:00 04/15/19 06:59 Metoprolol Tartrate (Lopressor) 25 mg Q12HR ORAL 04/10/19 09:00 05/10/19 08:59 04/13/19 09:24 Ondansetron HCl (Zofran) 4 mg Q6H PRN IVP Nausea & Vomiting 04/08/19 07:00 05/08/19 06:59 Polyethylene Glycol (Miralax) 17 gm DAILYPRN PRN ORAL Constipation 04/08/19 07:00 05/08/19 06:59 04/13/19 02:31 Potassium Chloride (K-Dur) 40 meq TWICE A DAY ORAL 04/12/19 18:00 04/14/19 17:59 04/13/19 09:23 Primidone (Mysoline) 150 mg DAILY@1200 ORAL 04/11/19 12:00 05/11/19 11:59 04/12/19 14:29 Primidone (Mysoline) 200 mg DAILY ORAL 04/09/19 09:00 05/09/19 08:59 04/13/19 09:24 Primidone (Mysoline) 200 mg QHS ORAL 04/08/19 21:00 05/08/19 20:59 04/12/19 21:01 Promethazine HCl/ Codeine (Phenergan with Codeine) 5 ml Q4H PRN ORAL For Cough 04/08/19 07:00 05/08/19 06:59 04/11/19 05:48 Vancomycin HCl (Vanco rx to dose) 1 ea DAILY PRN MISC Per rx protocol 04/10/19 12:30 05/10/19 12:29 Vancomycin HCl 750 mg/Sodium Chloride 275 ml @ 183.333 mls/hr Q24H IVPB 04/12/19 18:00 04/17/19 17:59 04/12/19 18:21 Lg Calixto MD Apr 13, 2019 11:37
[2019-04-13 12:07] VITALS: BP 141/72
--- NOTE | 2019-04-13 12:28 | Internal Med Progress Note ---
Subjective Date of Service: Apr 13, 2019 Physician Name Adama Lomas Attending Physician Ham Phillips MD Current Medications Medications (Trade) Dose Ordered Sig/Jyoti Route PRN Reason Start Time Stop Time Status Last Admin Dose Admin Acetaminophen (Tylenol) 650 mg Q4H PRN ORAL FEVER 04/08/19 07:00 05/08/19 06:59 04/08/19 12:20 Albuterol/ Ipratropium (Albuterol/ Ipratropium) 3 ml Q4H PRN HHN Shortness of Breath 04/09/19 19:00 04/14/19 18:59 Atorvastatin Calcium (Lipitor) 40 mg QHS ORAL 04/08/19 21:00 05/08/19 20:59 04/11/19 21:26 Ceftriaxone Sodium 2 gm/ Dextrose 55 ml @ 110 mls/hr Q24H IVPB 04/11/19 12:00 04/18/19 11:59 04/12/19 14:29 Clopidogrel Bisulfate (Plavix) 75 mg DAILY ORAL 04/08/19 09:00 05/08/19 08:59 04/13/19 09:24 Dextrose (Dextrose 50%) 25 ml Q30M PRN IV Hypoglycemia 04/08/19 07:00 05/08/19 06:59 Dextrose (Dextrose 50%) 50 ml Q30M PRN IV Hypoglycemia 04/08/19 07:00 05/08/19 06:59 Docusate Sodium (Colace) 100 mg TWICE A DAY ORAL 04/10/19 09:00 05/10/19 08:59 04/13/19 09:24 Furosemide (Lasix) 40 mg DAILY IV 04/09/19 18:45 05/09/19 18:44 04/13/19 09:24 Insulin Aspart (NovoLOG) BEFORE MEALS AND HS SUBQ 04/08/19 11:30 05/08/19 11:29 Lorazepam (Ativan 2mg/ml 1ml) 2 mg Q2H PRN IV For Anxiety 04/08/19 07:00 04/15/19 06:59 Metoprolol Tartrate (Lopressor) 25 mg Q12HR ORAL 04/10/19 09:00 05/10/19 08:59 04/13/19 09:24 Ondansetron HCl (Zofran) 4 mg Q6H PRN IVP Nausea & Vomiting 04/08/19 07:00 05/08/19 06:59 Polyethylene Glycol (Miralax) 17 gm DAILYPRN PRN ORAL Constipation 04/08/19 07:00 05/08/19 06:59 04/13/19 02:31 Potassium Chloride (K-Dur) 40 meq TWICE A DAY ORAL 04/12/19 18:00 04/14/19 17:59 04/13/19 09:23 Primidone (Mysoline) 150 mg DAILY@1200 ORAL 04/11/19 12:00 05/11/19 11:59 04/12/19 14:29 Primidone (Mysoline) 200 mg DAILY ORAL 04/09/19 09:00 05/09/19 08:59 04/13/19 09:24 Primidone (Mysoline) 200 mg QHS ORAL 04/08/19 21:00 05/08/19 20:59 04/12/19 21:01 Promethazine HCl/ Codeine (Phenergan with Codeine) 5 ml Q4H PRN ORAL For Cough 04/08/19 07:00 05/08/19 06:59 04/11/19 05:48 Vancomycin HCl (Vanco rx to dose) 1 ea DAILY PRN MISC Per rx protocol 04/10/19 12:30 05/10/19 12:29 Vancomycin HCl 750 mg/Sodium Chloride 275 ml @ 183.333 mls/hr Q24H IVPB 04/12/19 18:00 04/17/19 17:59 04/12/19 18:21 Allergies: Coded Allergies: No Known Allergies (Unverified , 02/23/16) ROS Limited/Unobtainable: No Constitutional: Reports: no symptoms HEENT: Reports: no symptoms Cardiovascular: Reports: no symptoms Respiratory: Reports: shortness of breath Gastrointestinal/Abdominal: Reports: no symptoms Genitourinary: Reports: no symptoms Neurologic/Psychiatric: Reports: no symptoms Subjective 88 YO M admitted with shortness of breath and fever. Now pneumonia. Cover for Int Bharath-DR Phillips Objective Last Vital Signs Date Time Temp Pulse Resp B/P (MAP) Pulse Ox O2 Delivery O2 Flow Rate FiO2 04/13/19 12:07 98.1 91 20 141/72 (95) 93 04/13/19 09:00 Nasal Cannula 2.0 04/12/19 19:56 28 Laboratory Tests Test 04/12/19 13:48 04/13/19 05:58 Random Vancomycin Level 13.6 ug/mL White Blood Count 7.6 K/UL (4.8-10.8) Red Blood Count 3.81 M/UL (4.70-6.10) L Hemoglobin 11.7 G/DL (14.2-18.0) L Hematocrit 33.6 % (42.0-52.0) L Mean Corpuscular Volume 88 FL (80-99) Mean Corpuscular Hemoglobin 30.7 PG (27.0-31.0) Mean Corpuscular Hemoglobin Concent 34.9 G/DL (32.0-36.0) Red Cell Distribution Width 12.1 % (11.6-14.8) Platelet Count 132 K/UL (150-450) L Mean Platelet Volume 6.4 FL (6.5-10.1) L Neutrophils (%) (Auto) 67.7 % (45.0-75.0) Lymphocytes (%) (Auto) 15.3 % (20.0-45.0) L Monocytes (%) (Auto) 10.6 % (1.0-10.0) H Eosinophils (%) (Auto) 4.9 % (0.0-3.0) H Basophils (%) (Auto) 1.6 % (0.0-2.0) Sodium Level 145 MMOL/L (136-145) Potassium Level 3.5 MMOL/L (3.5-5.1) Chloride Level 105 MMOL/L (98-107) Carbon Dioxide Level 27 MMOL/L (21-32) Anion Gap 13 mmol/L (5-15) Blood Urea Nitrogen 33 mg/dL (7-18) H Creatinine 1.3 MG/DL (0.55-1.30) Estimat Glomerular Filtration Rate 52.0 mL/min (>60) Glucose Level 143 MG/DL (74-106) H Calcium Level 9.5 MG/DL (8.5-10.1) Intake and Output 04/12/19 04/13/19 19:00 07:00 Intake Total 236 ml Output Total 600 ml Balance -364 ml Intake Oral 236 ml Output Urine Total 600 ml # Voids 3 3 # Bowel Movements 3 Objective PHYSICAL EXAMINATION: ture 101.7, respirations 18, pulse 82, and blood pressure 134/85. GENERAL: The patient is a well-developed and well-nourished male, in no apparent distress. HEENT: Eyes, pupils are equal and responsive to light and accommodation. Extraocular movements are intact. NECK: Supple without lymphadenopathy. CHEST: Decreased breath sounds at bilateral bases with crackles. Otherwise, without wheezes or rales. CARDIOVASCULAR: Irregular rhythm and irregular rate. S1 and S2 are normal without murmurs, rubs, or gallops. ABDOMEN: Soft, nontender, and nondistended. Positive bowel sounds. No evidence of hepatosplenomegaly. Currently, no rebound or guarding noted. EXTREMITIES: Negative for clubbing, cyanosis, or edema. RECTAL/GENITAL: Not performed. NEUROLOGICAL: Cranial nerves II through XII are grossly intact without focal deficits. Motor strength is 5/5 bilaterally. Deep tendon reflexes are 2+ plantar. Assessment/Plan Assessment/Plan ASSESSMENT: This is an 88-year-old male. 1. Shortness of breath. 2. Chest pain. 3. Fever. 4. Hypertension. 5. Coronary artery disease. 6. Congestive heart failure. 7. Pulmonary aspergillosis. 8. Diabetes type 2. 9. Hypercholesterolemia. 10. pneumonia=H. Influenza and MRSA staph aureus TREATMENT: 1. Shortness of breath/congestive heart failure. A Cardiology consultation has been obtained with Dr. Estrada. We will follow recommendation of Cardiology. An echocardiogram LVEF=55-60%. Serial troponin levels will be performed. 2. Coronary artery disease. As above, a Cardiology consultation has been obtained with Dr. Emmanuel Estrada. We will follow recommendations of Cardiology. 3. Hypertension. Continue losartan as above. Continue Bystolic as above. 4. Diabetes type 2. A NovoLog sliding scale has been instituted. 5. Hypercholesteremia. Continue atorvastatin as above. 6. ABX=vanco and ceftriaxone; D/C Cefepime and azithromycin per ID= Dr Raymond. Pulmonary=Dr Calixto 7. Oral potassium suppliment Adama Lomas MD Apr 13, 2019 12:28
[2019-04-13] MEDS: cefTRIAXone 2 GM in D5W 55 ML IVPB SCH (12:32)
--- NOTE | 2019-04-13 13:47 | Diagnostic Imaging Report ---
Indication: Dyspnea Comparison: 04/11/2019 A single view chest radiograph was obtained. Findings: Patchy interstitial and some alveolar infiltrates versus pulmonary interstitial edema demonstrated. Heart size is normal. Correlate clinically. Aorta is calcified. IMPRESSION: Patchy infiltrates versus interstitial edema. Correlate clinically
[2019-04-13 16:00] VITALS: BP 143/90
[2019-04-13] MEDS: Vancomycin 750 MG in NS 275 ML IVPB SCH (18:35)
--- NOTE | 2019-04-13 19:20 | NUR ---
HAND-OFF: Report given to Abril/MINNIE pt in stable condition.
--- NOTE | 2019-04-13 19:44 | NUR ---
NURSE NOTES: Received patient from MINNIE Roque. Patient alert, awake, and talkative. Bed in lowest position. Call light placed within reach. Will continue to monitor.
[2019-04-13 20:00] VITALS: BP 159/93
[2019-04-13] MEDS: Atorvastatin 20mg tab ORAL SCH (20:55)
[2019-04-14] VITALS: BP 153/73
[2019-04-14 04:00] VITALS: BP 129/62
[2019-04-14] MEDS: NovoLOG Insulin Flexpen SUBQ SCH ×2 (05:53→11:30)
--- NOTE | 2019-04-14 07:20 | NUR ---
HAND-OFF: Report given to MINNIE Ricks. Patient stable. Endorsed refusal for morning labs.
[2019-04-14 08:00] VITALS: BP 156/83
[2019-04-14] MEDS: Docusate 100mg cap ORAL SCH (09:00)
[2019-04-14 09:22] LABS: BASOPHILS % (AUTO) 1.6 % (0.0-2.0); EOSINOPHILS % (AUTO) 5.9 % (0.0-3.0); HEMATOCRIT 31.9 % (42.0-52.0); LYMPHOCYTES % (AUTO) 16.7 % (20.0-45.0); MEAN CORPUSCULAR VOLUME 88 FL (80-99); MONOCYTES % (AUTO) 9.4 % (1.0-10.0); NEUTROPHILS % (AUTO) 66.4 % (45.0-75.0); PLATELET COUNT 137 K/UL (150-450); RED BLOOD COUNT 3.62 M/UL (4.70-6.10); RED CELL DISTRIBUTION WIDTH 11.7 % (11.6-14.8); WHITE BLOOD COUNT 5.6 K/UL (4.8-10.8)
[2019-04-14 09:38] LABS: ANION GAP 7 mmol/L (5-15); BLOOD UREA NITROGEN 33 mg/dL (7-18); CALCIUM 9.4 MG/DL (8.5-10.1); CARBON DIOXIDE 31 MMOL/L (21-32); CHLORIDE 106 MMOL/L (98-107); CREATININE 1.3 MG/DL (0.55-1.30); POTASSIUM 3.7 MMOL/L (3.5-5.1); SODIUM 144 MMOL/L (136-145)
[2019-04-14] MEDS ORDERED: DOXYCYCLINE HY100 M2 PO (11:24)
--- NOTE | 2019-04-14 11:28 | Internal Med Progress Note ---
Subjective Physician Name Ham Phillips Attending Physician Ham Phillips MD Current Medications Medications (Trade) Dose Ordered Sig/Jyoti Route PRN Reason Start Time Stop Time Status Last Admin Dose Admin Acetaminophen (Tylenol) 650 mg Q4H PRN ORAL FEVER 04/08/19 07:00 05/08/19 06:59 04/08/19 12:20 Albuterol/ Ipratropium (Albuterol/ Ipratropium) 3 ml Q4H PRN HHN Shortness of Breath 04/09/19 19:00 04/14/19 18:59 Atorvastatin Calcium (Lipitor) 40 mg QHS ORAL 04/08/19 21:00 05/08/19 20:59 04/11/19 21:26 Ceftriaxone Sodium 2 gm/ Sodium Chloride 55 ml @ 110 mls/hr Q24H IVPB 04/14/19 12:00 04/18/19 11:59 Clopidogrel Bisulfate (Plavix) 75 mg DAILY ORAL 04/08/19 09:00 05/08/19 08:59 04/13/19 09:24 Dextrose (Dextrose 50%) 25 ml Q30M PRN IV Hypoglycemia 04/08/19 07:00 05/08/19 06:59 Dextrose (Dextrose 50%) 50 ml Q30M PRN IV Hypoglycemia 04/08/19 07:00 05/08/19 06:59 Docusate Sodium (Colace) 100 mg TWICE A DAY ORAL 04/10/19 09:00 05/10/19 08:59 04/13/19 09:24 Furosemide (Lasix) 40 mg DAILY IV 04/09/19 18:45 05/09/19 18:44 04/14/19 09:14 Insulin Aspart (NovoLOG) BEFORE MEALS AND HS SUBQ 04/08/19 11:30 05/08/19 11:29 Lorazepam (Ativan 2mg/ml 1ml) 2 mg Q2H PRN IV For Anxiety 04/08/19 07:00 04/15/19 06:59 Metoprolol Tartrate (Lopressor) 25 mg Q12HR ORAL 04/10/19 09:00 05/10/19 08:59 04/14/19 09:07 Ondansetron HCl (Zofran) 4 mg Q6H PRN IVP Nausea & Vomiting 04/08/19 07:00 05/08/19 06:59 Polyethylene Glycol (Miralax) 17 gm DAILYPRN PRN ORAL Constipation 04/08/19 07:00 05/08/19 06:59 04/13/19 02:31 Potassium Chloride (K-Dur) 40 meq TWICE A DAY ORAL 04/12/19 18:00 04/14/19 17:59 04/14/19 09:14 Primidone (Mysoline) 150 mg DAILY@1200 ORAL 04/11/19 12:00 05/11/19 11:59 04/13/19 12:33 Primidone (Mysoline) 200 mg DAILY ORAL 04/09/19 09:00 05/09/19 08:59 04/14/19 09:12 Primidone (Mysoline) 200 mg QHS ORAL 04/08/19 21:00 05/08/19 20:59 04/13/19 20:50 Promethazine HCl/ Codeine (Phenergan with Codeine) 5 ml Q4H PRN ORAL For Cough 04/08/19 07:00 05/08/19 06:59 04/11/19 05:48 Vancomycin HCl (Vanco rx to dose) 1 ea DAILY PRN MISC Per rx protocol 04/10/19 12:30 05/10/19 12:29 Vancomycin HCl 750 mg/Sodium Chloride 275 ml @ 183.333 mls/hr Q24H IVPB 04/12/19 18:00 04/19/19 23:59 04/13/19 18:35 Allergies: Coded Allergies: No Known Allergies (Unverified , 02/23/16) Subjective awake, alert, responsive, NO CP , less SOB and Cough Objective Last Vital Signs Date Time Temp Pulse Resp B/P (MAP) Pulse Ox O2 Delivery O2 Flow Rate FiO2 04/14/19 09:07 78 156/83 04/14/19 09:00 Room Air 04/14/19 08:00 98.1 18 98 04/14/19 07:15 21 04/13/19 09:00 2.0 Laboratory Tests Test 04/14/19 09:00 White Blood Count 5.6 K/UL (4.8-10.8) Red Blood Count 3.62 M/UL (4.70-6.10) L Hemoglobin 11.0 G/DL (14.2-18.0) L Hematocrit 31.9 % (42.0-52.0) L Mean Corpuscular Volume 88 FL (80-99) Mean Corpuscular Hemoglobin 30.5 PG (27.0-31.0) Mean Corpuscular Hemoglobin Concent 34.6 G/DL (32.0-36.0) Red Cell Distribution Width 11.7 % (11.6-14.8) Platelet Count 137 K/UL (150-450) L Mean Platelet Volume 6.0 FL (6.5-10.1) L Neutrophils (%) (Auto) 66.4 % (45.0-75.0) Lymphocytes (%) (Auto) 16.7 % (20.0-45.0) L Monocytes (%) (Auto) 9.4 % (1.0-10.0) Eosinophils (%) (Auto) 5.9 % (0.0-3.0) H Basophils (%) (Auto) 1.6 % (0.0-2.0) Sodium Level 144 MMOL/L (136-145) Potassium Level 3.7 MMOL/L (3.5-5.1) Chloride Level 106 MMOL/L (98-107) Carbon Dioxide Level 31 MMOL/L (21-32) Anion Gap 7 mmol/L (5-15) Blood Urea Nitrogen 33 mg/dL (7-18) H Creatinine 1.3 MG/DL (0.55-1.30) Estimat Glomerular Filtration Rate 52.0 mL/min (>60) Glucose Level 138 MG/DL (74-106) H Calcium Level 9.4 MG/DL (8.5-10.1) Intake and Output 04/13/19 04/14/19 19:00 07:00 Intake Total 850 ml Output Total 2150 ml 450 ml Balance -1300 ml -450 ml Intake Oral 850 ml Output Urine Total 2150 ml 450 ml # Voids 4 # Bowel Movements 4 3 Objective General: No acute distress, awake and alert HEENT: NCAT, sclera anicteric, PERRL, EOMI. Neck: Supple, no significant jugular venous distention, Lungs: Good inspiratory effort, clear to auscultation bilaterally, no Wheeze or Rales. Heart: Regular rate and rhythm, normal S1/S2, no murmurs. Abdomen: soft, nontender, nondistended. Normoactive bowel sounds. / Rectal: Refused and deferred. Extremities: No Cyanosis , clubbing or edema. Neuro: A&O x 3, Able to move all extremities Skin: warm, no rashes or lesions Psych: Normal mood and affect Assessment/Plan Assessment/Plan ASSESSMENT: This is an 88-year-old male. 1. Shortness of breath. 2. Chest pain. 3. Fever. 4. Hypertension. 5. Coronary artery disease. 6. Congestive heart failure. 7. Pulmonary aspergillosis. 8. Diabetes type 2. 9. Hypercholesterolemia. 10. pneumonia=H. Influenza and MRSA staph aureus TREATMENT: 1. Shortness of breath/congestive heart failure. A Cardiology consultation has been obtained with Dr. Estrada. We will follow recommendation of Cardiology. An echocardiogram LVEF=55-60%. Serial troponin levels will be performed. 2. Coronary artery disease. As above, a Cardiology consultation has been obtained with Dr. Emmanuel Estrada. We will follow recommendations of Cardiology. 3. Hypertension. Continue losartan as above. Continue Bystolic as above. 4. Diabetes type 2. A NovoLog sliding scale has been instituted. 5. Hypercholesteremia. Continue atorvastatin as above. 6. ABX=vanco and ceftriaxone; D/C Cefepime and azithromycin --> switch to Doxycycline 100 mg bid X 5 days. ID= Dr Raymond. Pulmonary=Dr Calixto 7. Oral potassium suppliment Dc home with Ham Pollock MD Apr 14, 2019 11:27
[2019-04-14 12:00] VITALS: BP 149/82
[2019-04-14] MEDS ORDERED: cefTRIAXone 2 GM in NS 55 ML IVPB SCH (12:00)
--- NOTE | 2019-04-14 12:17 | Pulmonology Progress Note ---
Assessment/Plan Problems: (1) MRSA pneumonia (2) Community acquired pneumonia (3) Anemia (4) Atrial fibrillation Assessment & Plan: sinus now with lots of PAC's and PVC's (5) Diabetes mellitus (6) CAD (coronary artery disease) (7) HTN (hypertension) Assessment/Plan fleet enema for constipation. pt has mostly interstitial infiltrate, Staph doesn't cause that. it is probably viral pneumonia. will get HRCT of chest to look at the extent of infiltrate. continue vancomycin Ceftriaxone started f/u renal function all cxr's reviewed respiratory treatment titrate fio2 to sat of 92% Subjective ROS Limited/Unobtainable: No Constitutional: Reports: no symptoms HEENT: Repors: no symptoms Respiratory: Reports: no symptoms Allergies: Coded Allergies: No Known Allergies (Unverified , 02/23/16) Objective Last 24 Hour Vital Signs Date Time Temp Pulse Resp B/P (MAP) Pulse Ox O2 Delivery O2 Flow Rate FiO2 04/14/19 09:07 78 156/83 04/14/19 09:00 Room Air 04/14/19 08:00 98.1 78 18 156/83 (107) 98 04/14/19 08:00 95 04/14/19 07:15 93 Room Air 04/14/19 07:15 93 18 93 Room Air 21 04/14/19 04:00 90 04/14/19 04:00 97.8 90 18 129/62 (84) 96 04/14/19 00:00 98.2 87 19 153/73 (99) 94 04/13/19 21:00 Room Air 04/13/19 20:50 95 159/93 04/13/19 20:24 96 Room Air 04/13/19 20:24 91 18 96 Room Air 21 04/13/19 20:00 97.7 95 19 159/93 (115) 95 04/13/19 20:00 87 04/13/19 16:00 98.4 94 20 143/90 (107) 97 04/13/19 16:00 89 Intake and Output 04/13/19 04/14/19 19:00 07:00 Intake Total 850 ml Output Total 2150 ml 450 ml Balance -1300 ml -450 ml Intake Oral 850 ml Output Urine Total 2150 ml 450 ml # Voids 4 # Bowel Movements 4 3 General Appearance: WD/WN HEENT: normocephalic, atraumatic Respiratory/Chest: chest wall non-tender, lungs clear Cardiovascular: normal peripheral pulses, normal rate Abdomen: soft, non tender, no organomegaly Genitourinary: normal external genitalia Extremities: no clubbing Laboratory Tests 04/14/19 09:00: White Blood Count 5.6, Red Blood Count 3.62L, Hemoglobin 11.0L, Hematocrit 31.9L , Mean Corpuscular Volume 88, Mean Corpuscular Hemoglobin 30.5, Mean Corpuscular Hemoglobin Concent 34.6, Red Cell Distribution Width 11.7, Platelet Count 137L, Mean Platelet Volume 6.0L, Neutrophils (%) (Auto) 66.4, Lymphocytes (%) (Auto) 16.7L, Monocytes (%) (Auto) 9.4, Eosinophils (%) (Auto) 5.9H, Basophils (%) (Auto) 1.6, Sodium Level 144, Potassium Level 3.7, Chloride Level 106, Carbon Dioxide Level 31, Anion Gap 7, Blood Urea Nitrogen 33H, Creatinine 1.3, Estimat Glomerular Filtration Rate 52.0, Glucose Level 138H, Calcium Level 9.4 Current Medications Medications (Trade) Dose Ordered Sig/Jyoti Route PRN Reason Start Time Stop Time Status Last Admin Dose Admin Acetaminophen (Tylenol) 650 mg Q4H PRN ORAL FEVER 04/08/19 07:00 05/08/19 06:59 04/08/19 12:20 Albuterol/ Ipratropium (Albuterol/ Ipratropium) 3 ml Q4H PRN HHN Shortness of Breath 04/09/19 19:00 04/14/19 18:59 Atorvastatin Calcium (Lipitor) 40 mg QHS ORAL 04/08/19 21:00 05/08/19 20:59 04/11/19 21:26 Ceftriaxone Sodium 2 gm/ Sodium Chloride 55 ml @ 110 mls/hr Q24H IVPB 04/14/19 12:00 04/18/19 11:59 Clopidogrel Bisulfate (Plavix) 75 mg DAILY ORAL 04/08/19 09:00 05/08/19 08:59 04/13/19 09:24 Dextrose (Dextrose 50%) 25 ml Q30M PRN IV Hypoglycemia 04/08/19 07:00 05/08/19 06:59 Dextrose (Dextrose 50%) 50 ml Q30M PRN IV Hypoglycemia 04/08/19 07:00 05/08/19 06:59 Docusate Sodium (Colace) 100 mg TWICE A DAY ORAL 04/10/19 09:00 05/10/19 08:59 04/13/19 09:24 Furosemide (Lasix) 40 mg DAILY IV 04/09/19 18:45 05/09/19 18:44 04/14/19 09:14 Insulin Aspart (NovoLOG) BEFORE MEALS AND HS SUBQ 04/08/19 11:30 05/08/19 11:29 Lorazepam (Ativan 2mg/ml 1ml) 2 mg Q2H PRN IV For Anxiety 04/08/19 07:00 04/15/19 06:59 Metoprolol Tartrate (Lopressor) 25 mg Q12HR ORAL 04/10/19 09:00 05/10/19 08:59 04/14/19 09:07 Ondansetron HCl (Zofran) 4 mg Q6H PRN IVP Nausea & Vomiting 04/08/19 07:00 05/08/19 06:59 Polyethylene Glycol (Miralax) 17 gm DAILYPRN PRN ORAL Constipation 04/08/19 07:00 05/08/19 06:59 04/13/19 02:31 Potassium Chloride (K-Dur) 40 meq TWICE A DAY ORAL 04/12/19 18:00 04/14/19 17:59 04/14/19 09:14 Primidone (Mysoline) 150 mg DAILY@1200 ORAL 04/11/19 12:00 05/11/19 11:59 04/13/19 12:33 Primidone (Mysoline) 200 mg DAILY ORAL 04/09/19 09:00 05/09/19 08:59 04/14/19 09:12 Primidone (Mysoline) 200 mg QHS ORAL 04/08/19 21:00 05/08/19 20:59 04/13/19 20:50 Promethazine HCl/ Codeine (Phenergan with Codeine) 5 ml Q4H PRN ORAL For Cough 04/08/19 07:00 05/08/19 06:59 04/11/19 05:48 Vancomycin HCl (Vanco rx to dose) 1 ea DAILY PRN MISC Per rx protocol 04/10/19 12:30 05/10/19 12:29 Vancomycin HCl 750 mg/Sodium Chloride 275 ml @ 183.333 mls/hr Q24H IVPB 04/12/19 18:00 04/19/19 23:59 04/13/19 18:35 Lg Calixto MD Apr 14, 2019 12:16
--- NOTE | 2019-04-14 13:55 | NUR ---
CHEST CT SCAN ORDERED BY PATIENT REFUSED CHEST CT SCAN AND ASKED TO BE DISCHARGED Addendum: 04/14/19 at 1357 by ILAN WOLFF RN RN PATIENT DISCHARGED WITH ALL HIS BELONGING ORDERED.
--- NOTE | 2019-04-14 14:17 | NUR ---
CASE MANAGEMENT: FAXED CLINICALS TO [facility] T: [phone] F: [phone]
[2019-04-14] MEDS ORDERED: Tubing IV Secondary IV ONE (14:58)
--- NOTE | 2019-04-14 16:32 | NUR ---
*-*DISCHARGE PLANNING*-* PATIENT HAS BEEN REFERRED TO: [facility] P: [phone] F: [phone] [facility] WAS UNABLE TO SERVICE PATIENT BECAUSE PATIENT IS ALREADY IN SERVICE WITH [facility]
--- NOTE | 2019-04-16 11:54 | Discharge Summary ---
Discharge Summary Discharge Summary _ DATE OF ADMISSION: 04/08 2019 DATE OF DISCHARGE: 04/14/2019 DISCHARGED BY: Dr. Phillips REASON FOR ADMISSION: 88 years old male with past medical history of hypertension, coronary artery disease, presented with complaint of shortness of breath and chest pain for the last 2 to 3 days. Symptoms were worse with inspiration. Patient reported cough and feeling weak. Patient reported chest tightness. No radiation of pain , no exertional component. No diaphoresis. Upon evaluation patient had low-grade fever 100.2, pulse oximetry was 96% on room air. EKG revealed atrial fibrillation with controlled ventricular response. Chest x-ray demonstrated evidence of interstitial and airspace edema, small bilateral pleural effusion and borderline cardiomegaly. Laboratory work-up revealed no leukocytosis ,hemoglobin 11.1, hematocrit 31.4, platelet count 101. Potassium 3.1. Troponin 0.043. Pro BNP 8608. Urinalysis revealed no evidence of urinary tract infection. Patient subsequently admitted to telemetry floor. CONSULTANTS: bag presser pulmonary Dr. Calixto ID specialist Dr. Raymond [facility] COURSE: Patient admitted to telemetry floor. Patient started on empiric antibiotics. Venous duplex bilateral lower extremity revealed no evidence of acute DVT. Supplemental oxygen provided and titrated to keep pulse oximetry above 92%. Pulmonary toilet provided as needed. Second troponin was minimally elevated -0.09. EKG revealed atrial tachycardia, no atrial fibrillation. Patient started on beta-maki for rate control . Plavix and statin were continued.. Manager Case recommended to avoid beta agonist inhalers. Manager Case started on diuresis with close monitoring of volumes and cardiorenal parameters. Supplemental oxygen provided and titrated to keep pulse oximetry above 92%. No beta agonist were used for bronchodilator treatment. Patient was followed-up with a chest x-ray. Sputum culture grew MRSA and Haemophilus. Blood cultures were negative. Influenza screen was negative. Antibiotic regimen was optimized as per ID specialist recommendation . Fevers resolved (highest was 101.7 ), no leukocytosis. Legionella antigen in urine was negative. Patient was discharged on oral antibiotic to complete the course of treatment. Renal parameters and electrolytes were closely monitored. Electrolytes corrected as needed. Creatinine trended down to normal prior to discharge. Acute kidney injury resolved . Blood sugar was managed with sliding scale of insulin. Counts were closely monitored. Platelets up to 137 upon discharge . Hemoglobin and hematocrit were closely monitored with goal to keep hemoglobin above 7. Prior to discharge hemoglobin 11, hematocrit 31.9. Patient clinically stabilized and was ready for discharge home on oral antibiotic to complete the course. FINAL DIAGNOSES: Pneumonia with Haemophilus and MRSA/community-acquired pneumonia CHF Atrial tachycardia Coronary artery disease with history of [place], status post stenting Hypertension Diabetes mellitus Hyperlipidemia Anemia Thrombocytopenia Pulmonary aspergillosis Acute kidney injury DISCHARGE MEDICATIONS: See Medication Reconciliation list. DISCHARGE INSTRUCTIONS: Patient was discharged home. Follow-up with her primary care provider in 1 week. Aga Leal NP Apr 16, 2019 11:53
== END 2019-04-14 14:59 | disposition home or self-care (01) | DRG 178 ==
LOC: EDBD 01:36 → EMR 01:45 → 2E 03:28 → EDBEDREQ 03:51 → 2E 04-11 08:49
DX: J15.212 Pneumonia due to Methicillin resistant Staphylococcus aureus (principal); N17.9 Acute kidney failure, unspecified; B44.1 Other pulmonary aspergillosis; I47.1 Supraventricular tachycardia; J18.9 Pneumonia, unspecified organism; I50.9 Heart failure, unspecified; I48.91 Unspecified atrial fibrillation; E87.6 Hypokalemia; D69.6 Thrombocytopenia, unspecified; I11.0 Hypertensive heart disease with heart failure; I25.10 Atherosclerotic heart disease of native coronary artery without angina pectoris; Z95.5 Presence of coronary angioplasty implant and graft; I25.2 Old myocardial infarction; E11.9 Type 2 diabetes mellitus without complications; Z79.84 Long term (current) use of oral hypoglycemic drugs; E78.00 Pure hypercholesterolemia, unspecified; D64.9 Anemia, unspecified; E78.5 Hyperlipidemia, unspecified
CPT/HCPCS: 36415; 71045; 80048; 80053; 80069; 80202; 81003; 82164; 82550; 82553; 82962; 83605; 83735; 83880; 84484; 85007; 85025; 85610; 85730; 86710; 87040; 87070; 87181; 87205; 93005; 93306; 93970; 94640; 94664; 96361; 96374; 99285; J1815; J7030; J7620; J8499